=== PATIENT | female | born 1990 | race Caucasian/White ===

== ENCOUNTER 2017-08-04 04:23 | Inpatient (IN) | payer OTHER, SELFPAY ==
[2017-08-04] VITALS (31 sets, daily range): BP systolic 82–122; BP diastolic 51–88; PULSE 72–110; RESP 14–20; TEMP 36.1–43; O2SAT 96–100; BMI 20.5
--- NOTE | 2017-08-04 04:41 | CT_ITS ---
CT abdomen pelvis wo con CLINICAL INDICATION: Abdominal pain, periumbilical pain ITS.REASON: ABDOMINAL PAIN ORDERING PHYSICIAN: Obi Doss MD PATIENT AGE: 27 years COMPARISON: None TECHNIQUE: Axial images obtained with sagittal and coronal reformats. PROCEDURE: Oral Contrast: None IV Contrast: None . FINDINGS: No acute finding in the lung bases. The liver, spleen, adrenal glands, and pancreas have an unremarkable unenhanced CT appearance. There is a nonobstructing 4 mm stone in the upper pole of the left kidney and a 2 mm stone in the lower pole left kidney. No hydronephrosis or ureteral calculi evident. There is mild amount of ascites. Mildly thickened small bowel loops are present and are nonspecific. There is some mild thickening of the large bowel as well. Fluid is present in the pelvis. There is a complex multiloculated appearing collection in the right lower abdomen extending into the pelvis measuring approximately 8.6 x 8.3 x 7.3 cm. This contains internal gas and fluid with mildly thickened septations and is suspicious for an abscess. Etiology of the abscess is uncertain. Could represent an appendiceal or diverticular abscess or even tubo-ovarian abscess. The appendix is not reliably identified. No acute bony anomalies. IMPRESSION: Complex fluid collection in the right lower quadrant containing gas extending in the pelvis suspicious for an abscess with associated ascites. Etiology of the abscess is uncertain. Appendiceal, diverticular, tubo-ovarian abscess or abscess from Crohn's disease is a consideration. There are scattered mildly thickened small bowel loops which are nonspecific. Recommend repeat exam with IV and appropriate oral contrast. There is generalized ascites as well with a moderate amount fluid in the cul-de-sac Scattered fluid-filled loops of small bowel are present some of which are mildly thickened some mildly thickened large bowel is well. Ileus/enteritis consideration. Nonobstructing left nephrolithiasis
[2017-08-04 05:05] LABS: Appearance,Urine CLEAR (Clear); Bilirubin,Urine Negative (Negative); Blood, Urine 3+ (Negative); Color,Urine YELLOW (Yellow); Glucose,Urine (UA) Negative (Negative); Ketones,Urine Negative (Negative); Leukocyte Esterase,Urine TRACE (Negative); Microscopic, Urine URINE MICROSCOPIC (MICROSCOPIC); Nitrate,Urine Negative (Negative); Protein,Urine Negative (Negative)
[2017-08-04 05:08] LABS: HCG Qualitative, Serum Negative (Negative)
[2017-08-04 05:09] LABS: Basophils % 0.1 % (0.1-2.0); Eosinophils % 0.1 % (0.1-12.0); Hematocrit 40.5 % (37.0-47.0); Hemoglobin 13.2 g/dL (12.2-16.2); Lymphocytes # 1.7 K/mm3 (0.7-4.5); Lymphocytes % 8.4 K/mm3 (10-50); Mean Corpuscular HGB Conc 32.7 g/dL (31.8-35.4); Mean Corpuscular Volume 91.7 fl (81-99); Mean Platelet Volume 7.6 fl (7.4-10.4); Monocytes # 0.3 K/mm3 (0.1-1.0); Monocytes % 1.6 % (1.7-9.3); Neutrophils # 18.4 K/mm3 (1.8-7.8); Neutrophils % 89.8 % (37.0-80.0); Platelet Count 712 K/mm3 (142-424); Red Blood Count 4.41 M/mm3 (4.20-5.40); Red Cell Distribution Width 11.6 % (11.5-17.5); White Blood Count 20.5 K/mm3 (4.8-10.8)
[2017-08-04 05:10] LABS: Alanine Aminotransferase 17 U/L (12-78); Albumin Level 2.6 gm/dL (3.4-5.0); Albumin/Globulin Ratio 0.5 (1.1-1.8); Alkaline Phosphatase 82 U/L (46-116); Amylase 44 U/L (25-125); Anion Gap 15.3 mEq/L (5-15); Aspartate Amino Transferase 18 U/L (15-37); Bilirubin,Total 0.3 mg/dL (0.2-1.0); Blood Urea Nitrogen 5 mg/dL (7-18); Calcium 8.7 mg/dL (8.5-10.1); Carbon Dioxide 24 mmol/L (21.0-32.0); Chloride 99 mmol/L (98-107); Creatinine Clearance Estimated 86 mL/min (0-300); Creatinine,Serum 0.83 mg/dL (0.55-1.02); Estimated Glomerular Filt Rate 81 ml/min (>60); GFR (African American) 98 ML/MIN (>60); Globulin 5.4 gm/dl (1.3-3.2); Glucose 165 mg/dL (74-106); Lipase 82 u/L (73-393); MANUAL DIFFERENTIAL MANUAL DIFFERENTIAL (MANUAL DIFF); Potassium 3.3 mmoL/L (3.5-5.1); Sodium 135 mmol/L (136-145)
[2017-08-04 05:17] LABS: Bacteria,Urine 1+ /lpf; Mucus,Urine 3+ /lpf
--- NOTE | 2017-08-04 05:43 | PC.NURSE ---
pt returned from CT
[2017-08-04 06:08] LABS: Anisocytosis 1+; Lymphocytes % 5 % (10-50); Monocytes % 2 % (2-9); Neutrophils % 93 % (42-76); Platelet Estimate Normal; Total Cells Counted 100
--- NOTE | 2017-08-04 06:28 | US_ITS ---
US transvaginal HISTORY: Pelvic pain, periumbilical pain, abnormal CT scan ITS.REASON: pelvic pain ORDERING PHYSICIAN: Rajiv Brewer MD PATIENT AGE: 27 years COMPARISON: None FINDINGS: Ureters measures 9.3 x 3.5 x 6 cm with a combined endometrial thickness 4 mm. There is an IUD present within the endometrium. No uterine mass apparent. There is a complex 10.6 x 8.6 cm mass in the right adnexal region with both solid and cystic component. A normal right ovary is not identified. Left ovary is 4.2 x 3.5 cm. There is free fluid in the pelvis have an heterogeneous echogenicity suggesting complex fluid. IMPRESSION: 1. Complex 10.6 x 8.6 cm right sided pelvic mass having both solid and complex cystic component. This is suspicious for an abscess. 2. Complex fluid in the cul-de-sac which could be related to hemorrhage and/or infected fluid.
--- NOTE | 2017-08-04 06:35 | HMH.EDUROGF ---
ED Disposition Clinical Impression: Tubo-ovarian abscess Disposition: Admitted As Inpatient Condition on Discharge: Serious Instructions: DI for Acute Abdomen - Critical Care Critical Care Time: No Attestation: On 08/04/17, the high probability of a clinically significant, sudden or life threatening deterioration of the following system(s) required my full and direct attention, intervention and personal management. The time I documented below is in addition to time spent performing reported procedures but includes the following listed in this critical care notation. Medical Decision Making - Medical Records Medical records reviewed: Yes: I reviewed the patient's medical records. Vital Signs: 08/04/17 04:31 Temperature 100.6 F H Temperature Source Oral Pulse Rate [Right Radial] 107 H Respiratory Rate 20 Blood Pressure [Right Arm] 109/69 Blood Pressure Mean [Right Arm] 82 Blood Pressure Source [Right Arm] Automatic Cuff 02 Sat by Pulse Oximetry 98 Oxygen Delivery Method Room Air - Lab Data Lab results reviewed: Yes: I reviewed the patient's lab results. Lab Results 08/04/17 04:40: WBC 20.5 H*, RBC 4.41, Hgb 13.2, Hct 40.5, MCV 91.7, MCH 30.0, MCHC 32.7, RDW 11.6, Plt Count 712 H, MPV 7.6, Neut % (Auto) 89.8 H, Lymph % (Auto) 8.4 L, [place] % (Auto) 1.6 L, Eos % (Auto) 0.1, Baso % (Auto) 0.1, Neut # (Auto) 18.4 H, Lymph # (Auto) 1.7, [place] # (Auto) 0.3, Eos # (Auto) 0.0, Baso # (Auto) 0.0, Total Counted 100, Neutrophils % (Manual) 93 H, Lymphocytes % (Manual) 5 L, Monocytes % (Manual) 2, Platelet Estimate Normal, Anisocytosis 1+ 08/04/17 04:40: Sodium 135 L, Potassium 3.3 L, Chloride 99, Carbon Dioxide 24, Anion Gap 15.3 H, BUN 5 L, Creatinine 0.83, Estimated Creat Clear 86, Estimated GFR 81, Est GFR ( Amer) 98, Glucose 165 H, Calcium 8.7, Total Bilirubin 0.3, AST 18, ALT 17, Alkaline Phosphatase 82, Total Protein 8.0, Albumin 2.6 L, Globulin 5.4 H, Albumin/Globulin Ratio 0.5 L, Amylase 44, Lipase 82 08/04/17 04:40: Serum HCG, Qual Negative 08/04/17 04:50: Urine Color Yellow, Urine Appearance Clear, Urine pH 7.0, Ur Specific [place] 1.010, Urine Protein Negative, Urine Glucose (UA) Negative, Urine Ketones Negative, Urine Blood 3+, Urine Nitrate Negative, Urine Bilirubin Negative, Urine Urobilinogen 2.0, Ur Leukocyte Esterase Trace, Urine RBC 10-20, Urine WBC 3-5, Ur Squamous Epith Cells 3-5, Urine Bacteria 1+, Urine Mucus 3+ Result diagrams: 08/04/17 04:40 08/04/17 04:40 Orders (Tests/Meds): ED MEDICATIONS Discontinued Medications Generic Name Dose Route Start Last Admin Trade Name Freq PRN Reason Stop Dose Admin Sodium Chloride 1,000 mls @ 999 mls/hr 08/04/17 05:00 08/04/17 04:54 Sod Chloride 0.9% 1000ml Bag IV 08/04/17 06:00 999 mls/hr .Q1H1M SUNSHINE Administration Ketorolac Tromethamine 30 mg 08/04/17 05:26 08/04/17 05:33 Toradol 30mg/Ml Vial IV 08/04/17 05:27 30 mg ONCE ONE Administration Morphine Sulfate 2 mg 08/04/17 06:31 08/04/17 06:34 Morphine 2mg/Ml Syringe IV 08/04/17 06:32 2 mg ONCE ONE Administration ORDERS Category Date Time Status CT abdomen pelvis wo con Stat Cat Scan 08/04/17 04:41 Taken US transvaginal Stat Exams 08/04/17 06:28 Ordered - CT Data CT Scan: Abdomen, Pelvis Time Received: 06:[address] Reviewed: Yes: I have viewed the radiologist's interpretation Preliminary Findings: Abnormal - US Data US Images: Pelvis ED US Reviewed: Yes: I have viewed radiologist's interpretation Findings Narrative: prob tuboovarian - Physician Consults Physician Consulted: johanne Reason -: Admission, Pt condition - Jd Inquiry Pt receiving controlled substance: No Female Urogenital HPI - General Chief complaint: Abdominal Pain Stated complaint: vaginal bleeding,feet and hands drawing Time Seen by Provider: 08/04/17 04:40 Mode of Arrival: Ambulatory Source of Information: Patient, Significant Other, Medical Record Limitations
--- NOTE | 2017-08-04 06:35 | PC.NURSE ---
CONSULTING WITH DR TURNER
--- NOTE | 2017-08-04 06:39 | ED_ITS ---
ED Disposition Clinical Impression: Tubo-ovarian abscess Disposition: Admitted As Inpatient Condition on Discharge: Serious Instructions: DI for Acute Abdomen - Critical Care Critical Care Time: No Attestation: On 08/04/17, the high probability of a clinically significant, sudden or life threatening deterioration of the following system(s) required my full and direct attention, intervention and personal management. The time I documented below is in addition to time spent performing reported procedures but includes the following listed in this critical care notation. Medical Decision Making - Medical Records Medical records reviewed: Yes: I reviewed the patient's medical records. Vital Signs: 08/04/17 04:31 Temperature 100.6 F H Temperature Source Oral Pulse Rate [Right Radial] 107 H Respiratory Rate 20 Blood Pressure [Right Arm] 109/69 Blood Pressure Mean [Right Arm] 82 Blood Pressure Source [Right Arm] Automatic Cuff 02 Sat by Pulse Oximetry 98 Oxygen Delivery Method Room Air - Lab Data Lab results reviewed: Yes: I reviewed the patient's lab results. Lab Results 08/04/17 04:40: WBC 20.5 H*, RBC 4.41, Hgb 13.2, Hct 40.5, MCV 91.7, MCH 30.0, MCHC 32.7, RDW 11.6, Plt Count 712 H, MPV 7.6, Neut % (Auto) 89.8 H, Lymph % ( Auto) 8.4 L, [place] % (Auto) 1.6 L, Eos % (Auto) 0.1, Baso % (Auto) 0.1, Neut # ( Auto) 18.4 H, Lymph # (Auto) 1.7, [place] # (Auto) 0.3, Eos # (Auto) 0.0, Baso # ( Auto) 0.0, Total Counted 100, Neutrophils % (Manual) 93 H, Lymphocytes % (Manual ) 5 L, Monocytes % (Manual) 2, Platelet Estimate Normal, Anisocytosis 1+ 08/04/17 04:40: Sodium 135 L, Potassium 3.3 L, Chloride 99, Carbon Dioxide 24, Anion Gap 15.3 H, BUN 5 L, Creatinine 0.83, Estimated Creat Clear 86, Estimated GFR 81, Est GFR ( Amer) 98, Glucose 165 H, Calcium 8.7, Total Bilirubin 0.3, AST 18, ALT 17, Alkaline Phosphatase 82, Total Protein 8.0, Albumin 2.6 L, Globulin 5.4 H, Albumin/Globulin Ratio 0.5 L, Amylase 44, Lipase 82 08/04/17 04:40: Serum HCG, Qual Negative 08/04/17 04:50: Urine Color Yellow, Urine Appearance Clear, Urine pH 7.0, Ur Specific [place] 1.010, Urine Protein Negative, Urine Glucose (UA) Negative, Urine Ketones Negative, Urine Blood 3+, Urine Nitrate Negative, Urine Bilirubin Negative, Urine Urobilinogen 2.0, Ur Leukocyte Esterase Trace, Urine RBC 10-20, Urine WBC 3-5, Ur Squamous Epith Cells 3-5, Urine Bacteria 1+, Urine Mucus 3+ Result diagrams: 08/04/17 04:40 08/04/17 04:40 Orders (Tests/Meds): ED MEDICATIONS Discontinued Medications Generic Name Dose Route Start Last Admin Trade Name Freq PRN Reason Stop Dose Admin Sodium Chloride 1,000 mls @ 999 mls/hr 08/04/17 05:00 08/04/17 04:54 Sod Chloride 0.9% 1000ml Bag IV 08/04/17 06:00 999 mls/hr .Q1H1M SUNSHINE Administration Ketorolac Tromethamine 30 mg 08/04/17 05:26 08/04/17 05:33 Toradol 30mg/Ml Vial IV 08/04/17 05:27 30 mg ONCE ONE Administration Morphine Sulfate 2 mg 08/04/17 06:31 08/04/17 06:34 Morphine 2mg/Ml Syringe IV 08/04/17 06:32 2 mg ONCE ONE Administration ORDERS Category Date Time Status CT abdomen pelvis wo con Stat Cat Scan 08/04/17 04:41 Taken US transvaginal Stat Exams 08/04/17 06:28 Ordered - CT Data CT Scan: Abdomen, Pelvis Time Received: 06:[address] Reviewed: Yes: I have viewed the radiologist's interpreta
--- NOTE | 2017-08-04 09:13 | HMH.ANESCL ---
[facility] Anesthesia Checklist - Patient Identification Patient Identification: Arm Band, Verbal (Name & ) - Structural Data Admitted From: Emergency Dept Planned Operative Procedure/s: dx lap - Chart Verification Results Verified: CBC, BMP - Additional verifications Patient : No Anesthesia Reactions: No Hx Blood Transfusions: No Blood Transfusion Reaction: No Cephalosporin Allergy: No - Cardiovascular Assessment Heart Sounds: S1 & S2 Pulse Strength: Strong Pulse Rhythm: Regular Peripheral Edema: No - Airway Assessment C-Spine Mobility Assessed: Yes TMJ Mobility Assessed: Yes Dentition: Good Dentition - Neurological Assessment Level of Consciousness: Awake, Alert, Appropriate Hx Seizures: No Numbness or tingling in extremities: No - Anesthesia Plan Anesthesia Risk discussed: Yes ASA Class: I Anesthesia Type: General [facility] Anesthesia HX I have reviewed the patient's past medical history: Yes Other Surgeries: Yes: No Previous Surgery
--- NOTE | 2017-08-04 10:02 | PC.NURSE ---
PT. STATES THAT SHE IS ALSO HAVING VAGINAL BLEEDING THAT IS BLACK. STATES THAT THIS HAS BEEN GOING ON SINCE 07/09/17
--- NOTE | 2017-08-04 10:32 | PC.NURSE ---
LATE ENTRY 0845- TALKED WITH JOHNNY BURRIS ABOUT PATIENT RATING PAIN AN 02/19 AND NO ORDERS FOR PAIN MEDICATIONS. ORDERS RECEIVED - DILAUDID 1MG IV EVERY 2 HOURS FOR MODERATE TO SEVERE PAIN, AND LACTATED RINGERS IV @100ML/HR FOR HYDRATION. REPEATED/VERIFIED. \ LATE ENTRY 1020- CALLED JOHNNY BURRIS AND INFORMED HIM OF PATIENTS TEMPERATURE OF 100.9. ORDERS RECEIVED- TORADOL 30MG IV EVERY 6 HOURS. REPEATED/VERIFIED.
--- NOTE | 2017-08-04 11:11 | HMH.PHACONS ---
- Pharmacy Consult Date: 08/04/17 Time: 11:11 Referring provider: DR. TURNER Reason for Consult:: GENTAMICIN DOSING Allergies and ADEs:: Allergies Allergy/AdvReac Type Severity Reaction Status Date / Time Penicillins Allergy Verified 08/04/17 04:38 Home Medications:: Home Medications Medication Instructions Recorded Confirmed Type No Known Home Medications [No 08/04/17 08/04/17 History Known Home Medications] Height: 1.63 m Weight: 54.431 kg Laboratory Results:: CREATININE=0.83 Medical History: Denies:: Cancer, Diabetes Mellitus Type 1, Diabetes Mellitus Type 2, MRSA, Seizures Assessment and Plan (1) Tubo-ovarian abscess Current visit: Yes Status: Acute Category: Medical Code(s): N70.93 - Salpingitis and oophoritis, unspecified - Assessment and plan all Dx Assessment and Plan for all problems:: BASED ON PATIENT FACTORS, RECOMMEND GENTAMICIN 240 MG IV Q24H. WILL OBTAIN GENTAMICIN LEVELS AT 4 AND 12-HOURS POST-INFUSION. PHARMACY WILL FOLLOW DAILY AND ADJUST APPROPRIATE.
--- NOTE | 2017-08-04 12:48 | PC.NURSE ---
LATE ENTRY 8145- CALLED JOHNNY BURRIS TO NOTIFY HIM OF PATIENTS TEMP SPIKING TO 101.5 AT 11:00. RECHECKED AT 11:30 TEMP DOWN TO 99.3 NO NEW ORDERS WERE GIVEN. WILL CONTINUE TO MONITOR. LATE ENTRY- 12:30 TOOK PATIENT DOWN FOR PROCEDURE VIA WHEELCHAIR. ACCOMPANIED BY . REPORT GIVEN TO Brandon ZAIDI.
--- NOTE | 2017-08-04 15:19 | HMH.OPNOTE ---
Date of procedure: 08/04/17 Pre-op Diagnosis:: Pelvic abscess Post-op diagnosis:: other (Pelvic abscess, right ovarian abscess, possible appendicitis) Procedure performed:: Laparoscopic right drainage of ovarian abscess, laparoscopic appendectomy Surgeon:: Rajiv Brewer MD DEFENSIVE DRIVING INSTRUCTOR:: Alcon Senior Anesthesia: GETEric Estimated blood loss (mL): 50 Clinical Note:: She is a 27-year-old 4 para 3 lady who has had a week long history of lower abdominal pain. She has a Mirena IUD in place and no new partners. She was seen in the ER this morning with a four-day history of anorexia and pelvic pain. She also had a fever. Her white cell was 20,000. Ultrasound showed pus in the pelvis as well as a possible abscess in the right side as a result of that she was offered laparoscopic drainage of her abscess. Operative findings:: When I looked in her pelvis it was completely full of yellow-green pus. On further inspection it was noted that the appendix was adherent to the back of the right ovary posteriorly close to the pelvic sidewall. The distal end of the appendix was quite firm and indurated. The more proximal end of the appendix was completely normal. Was not clear whether this was an appendiceal rupture that it sealed off and caused an ovarian abscess on the right side or possibly a primary ovarian abscess with an adhesion of the distal appendix to the right ovary. In any event we elected to remove her appendix as well as drain this abscess in the right ovary. The abscess in the right ovary was approximately 8 cm to 10 cm in size. Operative note:: She was taken to the operating room where general anesthesia was found to be adequate. She was prepped and draped in the normal sterile fashion in the semilithotomy position. The catheter was in the bladder. A weighted speculum was placed in the vagina and the anterior lip of the cervix was grasped with a tenaculum. Her Mirena strings were present and I was able to easily remove these with a sponge forcep. I then changed gloves and injected 10 cc of 0.5% ropivacaine around the umbilicus. I made a small incision within the umbilicus and inserted a Veress needle into the abdominal cavity. The cavity was then insufflated with carbon dioxide gas to a pressure of 20 mmHg. I then inserted a 5 mm trocar under direct vision I injected through and through at the pubic hairline, made a small incision here and inserted an 11 mm trocar under direct vision. I then identified the inferior epigastric arteries, went lateral to these and injected through and through. I inserted a 5 mm trocar here under direct vision. I then inspected the pelvis and there was copious pus in the pelvis. I drained this and then sent this for culture. I then rinsed the pelvis well with copious fluid. At this time it was noted that the appendix was adherent to the right ovary on its lateral side and there was a large fluid-filled cyst on the right ovary. Using blunt dissection and countertraction I was able to easily remove the distal end of the appendix from the right ovary. At this time was noted that there was some drainage of thick pus from the right ovary. I then grasped the more medial side of the right ovary and using harmonic scalpel opened up into the cyst. It was filled with thick yellow pus. This was rinsed well and drained. I then removed part of the cyst wall. This was sent to pathology. I then grasped the distal end of the appendix. Using harmonic scalpel I cut along the mesoappendix. I then changed to a 12 mm trocar and placed an Endo MARGOT stapler through this trocar. I clamped across the base of the appendix and then fired the stapler. The appendix was then placed in an Endo Catch bag and removed through the 12 mm port. I then further inspected the base of the appendix and was found to be completely hemostatic and completely sealed. I then placed the patient in reverse Trendelenburg and rinsed the upper abdomen
--- NOTE | 2017-08-04 15:23 | P.OP_ITS ---
Date of procedure: 08/04/17 Pre-op Diagnosis:: Pelvic abscess Post-op diagnosis:: other (Pelvic abscess, right ovarian abscess, possible appendicitis) Procedure performed:: Laparoscopic right drainage of ovarian abscess, laparoscopic appendectomy Surgeon:: Rajiv Brewer MD WALLPAPER HANGER:: Alcon Senior Anesthesia: GETEric Estimated blood loss (mL): 50 Clinical Note:: She is a 27-year-old 4 para 3 lady who has had a week long history of lower abdominal pain. She has a Mirena IUD in place and no new partners. She was seen in the ER this morning with a four-day history of anorexia and pelvic pain. She also had a fever. Her white cell was 20,000. Ultrasound showed pus in the pelvis as well as a possible abscess in the right side as a result of that she was offered laparoscopic drainage of her abscess. Operative findings:: When I looked in her pelvis it was completely full of yellow-green pus. On further inspection it was noted that the appendix was adherent to the back of the right ovary posteriorly close to the pelvic sidewall. The distal end of the appendix was quite firm and indurated. The more proximal end of the appendix was completely normal. Was not clear whether this was an appendiceal rupture that it sealed off and caused an ovarian abscess on the right side or possibly a primary ovarian abscess with an adhesion of the distal appendix to the right ovary. In any event we elected to remove her appendix as well as drain this abscess in the right ovary. The abscess in the right ovary was approximately 8 cm to 10 cm in size. Operative note:: She was taken to the operating room where general anesthesia was found to be adequate. She was prepped and draped in the normal sterile fashion in the semilithotomy position. The catheter was in the bladder. A weighted speculum was placed in the vagina and the anterior lip of the cervix was grasped with a tenaculum. Her Mirena strings were present and I was able to easily remove these with a sponge forcep. I then changed gloves and injected 10 cc of 0.5% ropivacaine around the umbilicus. I made a small incision within the umbilicus and inserted a Veress needle into the abdominal cavity. The cavity was then insufflated with carbon dioxide gas to a pressure of 20 mmHg. I then inserted a 5 mm trocar under direct vision I injected through and through at the pubic hairline, made a small incision here and inserted an 11 mm trocar under direct vision. I then identified the inferior epigastric arteries, went lateral to these and injected through and through. I inserted a 5 mm trocar here under direct vision. I then inspected the pelvis and there was copious pus in the pelvis. I drained this and then sent this for culture. I then rinsed the pelvis well with copious fluid. At this time it was noted that the appendix was adherent to the right ovary on its lateral side and there was a large fluid-filled cyst on the right ovary. Using blunt dissection and countertraction I was able to easily remove the distal end of the appendix from the right ovary. At this time was noted that there was some drainage of thick pus from the right ovary. I then grasped the more medial side of the right ovary and using harmonic scalpel opened up into the cyst. It was filled with thick yellow pus. This was rinsed well and drained. I then removed part of the cyst wall. This was sent to pathology. I then grasped the distal end of the appendix. Using harmonic scalpel I cut along the mesoappendix. I then changed to a 12 mm trocar and placed an Endo MARGOT stapler through this trocar. I clamped across the base of the appendix and then fired the stapler. The
--- NOTE | 2017-08-04 15:33 | P.PN_ITS ---
[facility] Anesthesia Record Part I Intake, IV Amount: 1,900 Estimated blood loss (mL): 50 Urine output (mL): 100 Blood Pressure: 116/70 SaO2: 99 Pulse Rate: 100 Respiratory Rate: 16 Temperature: 97.5 F Patient is:: Drowsy, Stable Stable to PACU at:: 15:30
--- NOTE | 2017-08-04 15:33 | HMH.ANESII ---
[facility] Anesthesia Record Part II Discharge Time: 16:00 Destination: 2nd floor PACU nurse assessment reviewed?: Yes Patient Condition:: Good Anesthesia Complications:: None
[2017-08-04 16:07] LABS: Gentamicin,Random 2.8 ug/mL (4.0-10.0)
--- NOTE | 2017-08-04 16:27 | PC.NURSE ---
1530-REPORT RECIEVED FROM VALERIE FORRESTER. KEMAL DRAIN TO MIDLINE, DISTAL ABDOMINAL INCISION. SMALL AMT OF CLOUDY, BLOOD TINGED, THIN DRAINAGE NOTED TO KEMAL DRAIN BULB. WILL CONTINUE TO MONITOR.
--- NOTE | 2017-08-04 16:53 | PC.NURSE ---
1540-PT REPORTS PAIN TO ABDOMEN, RATES 6/10. PT MEDICATED PER VALERIE FORRESTER W/FENTANYL IV ( SEE ANESTHESIA RECORD). PT EATING ICE CHIPS W/OUT DIFFICULTY. MODERATE AMT OF INCREASED DRAINAGE TO KEMAL DRAIN. COTENTS NOTED TO BE THIN, CLOUDY, AND BLOOD TINGED IN COLOR. WILL CONTINUE TO MONITOR.
--- NOTE | 2017-08-04 16:59 | PC.NURSE ---
1550-PT DENIES PAIN OR NAUSEA AT THIS TIME. SMALL AMT OF INCREASED THIN, CLOUDY, BLOOD TINGED DRAINAGE NOTED TO KEMAL DRAIN, WILL CONTINUE TO MONITOR. PT CONTINUES TO EAT ICE CHIPS W/OUT DIFFICULTY.
--- NOTE | 2017-08-04 17:03 | PC.NURSE ---
1555-PT REPORTS ABD PAIN, RATES /10. MEDICATED PER MAR W/MOPRHINE 2MG IV. VSS 1600-PT CONTINUES TO EAT ICE CHIPS W/OUT DIFFICULTY. SMALL AMT OF INCREASED THIN, CLOUDY, BLOOD TINGED DRAINAGE NOTED TO KEMAL DRAIN-EMPTIED 125ML'S AT THIS TIME. KEMAL DRAIN STRIPPED PRIOR TO EMPTYING. DETAILED REPORT CALLED TO RUKHSANA MELCHOR.
--- NOTE | 2017-08-04 17:09 | SUR.PHASEI ---
1603-PT REPORTS ABD PAIN EASING. PT TRANSPORTED TO OB DEPT RM 279 VIA STRETCHER PER MYSELF AND FUADRN W/BED RAILS UP AND LEFT IN CARE OF RUKHSANA MELCHOR W/BED LOCKED IN LOWEST POSITION. FAMILY AT BEDSIDE. PT ASSISTED INTO HOSPITAL BED UPON ARRIVAL TO FLOOR. VSS. PT STABLE.
--- NOTE | 2017-08-04 17:24 | PC.NURSE ---
LATE ENTRY- [address] ALBA. INFORMED HIM OF PTS. TWO ORDERS FOR DILAUDID. STATED TO D/C THE DILAUDID 1MG EVERY 2 HOURS. ALSO INFORMED HIM OF PTS. BP IN 80'S/50'S AND LOW URINE OUTPUT. ORDERS RECEIVED- 20MG IV LASIX ONCE AND 1 L OF NS BOLUS. REPEATED AND VERIFIED. WILL CONTINUE TO MONITOR .
--- NOTE | 2017-08-04 18:34 | PC.NURSE ---
LATE ENTRY 1824- TALKED WITH DR. TURNER- INFORMED HIM OF PTS. BP STILL IN 80'S/50'S AND THAT PATIENT WAS EXPERIENCING PAIN. INFORMED HIM THAT I DID NOT FEEL COMFORTABLE ABOUT GIVING HER DILAUDID. ALSO INFORMED HIM OF URINE OUTPUT WHICH HAS BEEN 250ML TOTAL SINCE SHE RETURNED FROM SURGERY. INFORMED HIM ABOUT DRAINAGE OUT OF KEMAL DRAIN. I EMPTIED 30ML OF PUS/SEROSANG DRAINAGE. ORDERED TORADOL 30MG IV ONCE NOW AND ALSO A STAT CBC. STATED HE WILL ROUND SHORTLY. ORDERS REPEATED/VERIFIED. WILL CONTINUE TO MONITOR.
--- NOTE | 2017-08-04 18:43 | PC.NURSE ---
LATE ENTRY 1749- DR. TURNER CALLED AND CHECKED ON PT. INFORMED HIM OF PTS. BLOOD PRESSURE AND ALSO PATIENT URINE OUTPUT. STATED TO CANCEL THE PREVIOUS ORDER FOR LASIX 20MG AND TO GIVE HER NS AT 500ML/HR X2. THEN CONTINUE TO PUSH FLUIDS. WILL CONTINUE TO MONITOR.
[2017-08-04 18:51] LABS: Eosinophils # 0.1 K/mm3 (0.0-0.4); Eosinophils % 0.5 % (0.1-12.0); Hematocrit 30.9 % (37.0-47.0); Lymphocytes # 0.4 K/mm3 (0.7-4.5); Lymphocytes % 4.2 K/mm3 (10-50); Mean Corpuscular HGB Conc 32.2 g/dL (31.8-35.4); Mean Corpuscular Hemoglobin 29.8 pg (27.0-31.2); Mean Corpuscular Volume 92.5 fl (81-99); Monocytes # 0.1 K/mm3 (0.1-1.0); Monocytes % 1.4 % (1.7-9.3); Neutrophils # 9.5 K/mm3 (1.8-7.8); Neutrophils % 93.8 % (37.0-80.0); Platelet Count 372 K/mm3 (142-424); Red Blood Count 3.34 M/mm3 (4.20-5.40); Red Cell Distribution Width 11.7 % (11.5-17.5); White Blood Count 10.1 K/mm3 (4.8-10.8)
[2017-08-04 18:54] LABS: Microscopic,Cath URINE MICROSCOPIC (MICROSCOPIC)
[2017-08-04 18:56] LABS: MANUAL DIFFERENTIAL MANUAL DIFFERENTIAL (MANUAL DIFF)
--- NOTE | 2017-08-04 19:05 | HMH.ACPN2 ---
Internal Medicine - PN: Subj *Date: 08/04/17 *Time: 19:05 Interval history: She has had some decreased blood pressure in the 80s over 50s. She looks well. She has minimal drainage from her KEMAL drain. It is serosanguineous. She is starting to put out a little more urine but it still continues to be dark yellow possibly as result of dehydration or the IV antibiotic she is taking. Her heart rate is stable. Blood pressure now is 92/56. Heart rate 80. Her pain is reasonably well controlled. She just received Toradol. Her blood counts are normal. Her hemoglobin is pending her hematocrit is 30.6. White blood cell count has gone down from 20-10. She is receiving a bolus of fluid at 500 cc an hour for the next couple of hours and then we will give her 125 cc an hour after that. We will monitor her urine output. We will switch to oral pain medicine from the IV pain medicine in case this is causing her blood pressure to drop. At this point in time I believe that she is stable she is afebrile and not septic appearing. She has another CBC and Chem-7 ordered for the morning. We will continue with her Coley catheter overnight and monitor her urine output. Exam Vital signs and Labs for Last 24 Hours: Temp Pulse Resp BP Pulse Ox 97.3 F L 87 16 122/88 99 08/04/17 17:40 08/04/17 17:40 08/04/17 17:40 08/04/17 17:40 08/04/17 17:40 Laboratory Results - last 24 hr 08/04/17 15:40: Random Gentamicin 2.8 L 08/04/17 18:40: WBC 10.1 D, RBC 3.34 L, Hct 30.9 L, MCV 92.5, MCH 29.8, MCHC 32.2, RDW 11.7, Plt Count 372 D, MPV 8.0, Neut % (Auto) 93.8 H, Lymph % (Auto) 4.2 L, [place] % (Auto) 1.4 L, Eos % (Auto) 0.5, Baso % (Auto) 0.0 L, Neut # (Auto) 9.5 H, Lymph # (Auto) 0.4 L, [place] # (Auto) 0.1, Eos # (Auto) 0.1, Baso # (Auto) 0.0 I & O for Last 24 hours: Intake & Output 08/02/17 08/03/17 08/04/17 08/05/17 11:59 11:59 11:59 11:59 Intake Total 1999 Output Total 250 / 250 Balance 1750 / 1750 Weight 120 lb - Constitutional no acute distress Assessment and Plan (1) Tubo-ovarian abscess Current visit: Yes Status: Acute Category: Medical Code(s): N70.93 - Salpingitis and oophoritis, unspecified - Assessment and plan all Dx Assessment and Plan for all problems:: We will continue with IV fluids. We will get another CBC in the morning. We will monitor her urine output. We will continue to monitor her vital signs. We will start oral pain medicine.
[2017-08-04 19:11] LABS: Appearance,Urine/Cath CLEAR (Clear); Blood, Urine/Cath Negative (Negative); Color,Urine/Cath YELLOW (Yellow); Glucose,Urine/Cath (UA) Negative (Negative); Ketones,Urine/Cath Negative (Negative); Leukocyte Esterase,Cath Negative (Negative); Nitrate,Cath Negative (Negative); Protein,Urine/Cath 1+ (Negative); Specific Gravity, Urine/Cath >= 1.030 (1.005-1.030)
[2017-08-04 19:19] LABS: Lymphocytes % 4 % (10-50); Monocytes % 11 % (2-9); Neutrophils % 76 % (42-76); Total Cells Counted 100
[2017-08-04 19:20] LABS: Platelet Estimate Normal; RBC Morphology Normal
--- NOTE | 2017-08-04 19:20 | PC.NURSE ---
LATE ENTRY- 1899 MD AT BEDSIDE INFORMED HIM OF PATIENTS BLOOD PRESSURE AND URINE OUTPUT. ALSO ABOUT PATIENTS PAIN. MD STATED HE WOULD ORDER PO DILAUDID AND SEE HOW SHE TOLERATED THIS. MD ENTERED ORDERS. REPORT GIVEN TO SAMEERA
--- NOTE | 2017-08-04 19:30 | PC.NURSE ---
2nd NS bolus of 500ml IV started at this time.
[2017-08-04 19:31] LABS: Bilirubin,Cath 1+ (Negative)
[2017-08-04 19:42] LABS: Bacteria,Urine/Cath 3+ /lpf; Mucus,Urine/Cath 3+ /lpf; RBC,Urine/Cath Occasional # /hpf (0-3)
--- NOTE | 2017-08-04 20:30 | PC.NURSE ---
2nd NS bolus complete... New bag of NS hung at this time.
--- NOTE | 2017-08-04 22:15 | PC.NURSE ---
Pt requested pain medication. Informed this nurse that she did not want the Dilaudid 2mg PO, instead she wanted the IV Dilaudid 2mg... I informed pt of wanting her to switch to the oral version of pain medication and reasons why. Pt verbalized understanding but still repeatedly stated that she did not want the PO form that It makes my head feel swimmy, it must be bc it lasts longer . Pt refused oral and insisted that I notify Dr. Brewer that she wanted the IV form. Dilaudid 2mg IV p3hr PRN pain still active on SEP, so pt given 2mg IV.
--- NOTE | 2017-08-04 23:50 | PC.NURSE ---
Pt rang call espana requesting that more pain medication be given. Informed pt that she cannot receive any additional pain medication until 0100, that it is scheduled q3hrs. Pt can barely keep eyes open from drowsiness while speaking stating that she thought her pain medication was q2hrs. Pt was educated on the dosing of her meds (PACU vs UNIT and different dosages ordered). Pt verbalized understanding, but not convinced that pt fully understood r/t effects of pain meds previously received.
[2017-08-05 00:27] LABS: Gentamicin,Random 0.3 ug/mL (4.0-10.0)
--- NOTE | 2017-08-05 00:30 | PC.NURSE ---
PT'S AT [employer] AT SAME TIME CHARLOTTE BRANHAM. PT'S OVERHEARD TELLING ANOTHER VISITOR THAT PT (HIS ) IS IN THE ROOM TALKING NON-SENSE AND AND OUT OF HER HEAD R/T THE NARCOTIC PAIN MEDICATION. THIS NURSE CHECKED ON PT'S CONDITION / STATUS UPON HEARING THIS. PT'S V/S ARE NORMAL / STABLE (HR 77, O2 99% RA, RESP 18), EXCEPT B/P WHICH HAS BEEN HYPOTENSIVE ENTIRE TIME. PT ALERT AND ORIENTED X3, BUT VERY DROWSY.
[2017-08-05 00:58] LABS: Hemoglobin 9.9 g/dL (12.2-16.2)
--- NOTE | 2017-08-05 04:03 | PC.NURSE ---
Pt has remained on bedrest throughout the night. Coley cath remains anchored to bs drain with clear, dark yellow urine noted in drainage bag.. Order to remove f/c after 24hrs which will be around 1400 today. Has had 600ml clear, dark yellow urine this shift. Has (+) BS x 4 quads - hypoactive. Tolerating POs well. Has requested pain medication approximately q3hrs as time permits, no non-verbal s/s of pain noted except when palpating abdomen, which was grimacing.. Pt has remained awake all this shift, talking to and watching tv. although very drowsy from narcotics.. Hypotensive, but all other vitals are wnl. Pallor in color. 3 lap sites to abdomen, with surgical dressing, right and left sides CDI, bottom center dressing saturated with old blood drainage. Abdomen soft to palpate, non-distended, KEMAL drain intact with 70mls purulent light pink drainage emptied this shift. Initial H/H 13.2/40.5, post surgery H/H @ 1840 9.9/30.9. Will have CBC and BMP drawn this a.m. IV NS continues infusing at 125/hr w/o difficulty in left A/C.
--- NOTE | 2017-08-05 06:12 | PC.NURSE ---
WAS INFORMED BY ORE SAMPLER THAT PT RANG OUT STATING THAT SHE NEEDED TO USE THE RESTROOM TO HAVE A BM.. THIS NURSE BUSY AT THE TIME GETTING AN INDUCTION OF LABOR PT ADMITTED AND INSTRUCTED ORE SAMPLER TO ALLOW PT TO USE A BEDPAN OR TO ASSIST HER TO THE BATHROOM TO USE THE TOILET. PT IMMEDIATELY STARTS CRYING STATING I DON'T HAVE NO OPTIONS , CHARLOTTE BRANHAM INFORMED PT OF HER OPTIONS AGAIN TO WHICH PT REPLIED, I CANT POOP WITH A CATHETER IN. I CANT WIPE PT THEN EDUCATED BY ORE SAMPLER OF HOW IT CAN INDEED BE DONE.. PT'S COMMENTS THAT HE DOESN'T KNOW WHAT IS WRONG WITH THE PT STATING SHE'S NEVER LIKE THIS, IT MUST BE THE MEDICINE SHE HAS BEEN TAKING PT WAS INFORMED THAT HER CATHETER ORDER IS TO NOT BE REMOVED UNTIL 24HRS AFTER SURGERY WHICH WOULD BE AROUND 1400 TODAY AND THAT STAFF WOULD NOTIFY DR. TURNER OF PT WANTING CATHETER D/C'D ... PT THEN STATES WELL I'LL JUST HAVE TO TELL DR TURNER HOW UNCOMFORTABLE I HAVE BEEN. TO WHICH STAFF VERBALIZED UNDERSTANDING.
[2017-08-05 07:00] LABS: Basophils % 0.1 % (0.1-2.0); Eosinophils % 0.1 % (0.1-12.0); Hematocrit 33.3 % (37.0-47.0); Hemoglobin 10.3 g/dL (12.2-16.2); Lymphocytes # 0.7 K/mm3 (0.7-4.5); Lymphocytes % 4.3 K/mm3 (10-50); Mean Corpuscular Hemoglobin 29.4 pg (27.0-31.2); Mean Corpuscular Volume 94.7 fl (81-99); Mean Platelet Volume 7.8 fl (7.4-10.4); Monocytes # 0.3 K/mm3 (0.1-1.0); Monocytes % 1.7 % (1.7-9.3); Neutrophils # 15.7 K/mm3 (1.8-7.8); Neutrophils % 93.8 % (37.0-80.0); Platelet Count 420 K/mm3 (142-424); Red Blood Count 3.51 M/mm3 (4.20-5.40); Red Cell Distribution Width 11.8 % (11.5-17.5); White Blood Count 16.7 K/mm3 (4.8-10.8)
[2017-08-05 07:02] LABS: Blood Urea Nitrogen 6 mg/dL (7-18); Carbon Dioxide 26 mmol/L (21.0-32.0); Chloride 105 mmol/L (98-107); Creatinine Clearance Estimated 132 mL/min (0-300); Creatinine,Serum 0.54 mg/dL (0.55-1.02); Estimated Glomerular Filt Rate 133 ml/min (>60); GFR (African American) 162 ML/MIN (>60); Glucose 116 mg/dL (74-106); MANUAL DIFFERENTIAL MANUAL DIFFERENTIAL (MANUAL DIFF); Sodium 139 mmol/L (136-145)
--- NOTE | 2017-08-05 07:21 | PC.NURSE ---
REPORT GIVEN TO DAYSHIFT RNs
[2017-08-05 08:00] VITALS: PULSE 88
[2017-08-05 08:23] VITALS: BP 89/54; PULSE 88; RESP 15; TEMP 36.4; O2SAT 98
[2017-08-05 08:35] LABS: Lymphocytes % 5 % (10-50); Monocytes % 2 % (2-9); Neutrophils % 90 % (42-76); Total Cells Counted 100
[2017-08-05 08:37] LABS: Platelet Estimate Normal
--- NOTE | 2017-08-05 09:08 | HMH.ACPN2 ---
Internal Medicine - PN: Subj *Date: 08/05/17 *Time: 09:08 Interval history: She is doing well this morning. Her hemoglobin is stable. Her electrolytes are normal. Her pain is reasonably well controlled. She continues to drain from her KEMAL drain it the fluid is serosanguineous. She is eating and drinking and ambulating. She denies any shortness of breath, chest pain or calf tenderness. Her belly is soft. Her heart sounds are normal her chest is clear and her bowel sounds are normal. She has had her catheter removed and she is voiding well. Exam Vital signs and Labs for Last 24 Hours: Temp Pulse Resp BP Pulse Ox 97.6 F 88 15 89/54 98 08/05/17 08:23 08/05/17 08:23 08/05/17 08:23 08/05/17 08:23 08/05/17 08:23 Laboratory Results - last 24 hr 08/04/17 13:55: Urine Color Yellow, Urine Appearance Clear, Urine pH 6.0, Ur Specific [place] >= 1.030, Urine Protein 1+, Urine Glucose (UA) Negative, Urine Ketones Negative, Urine Blood Negative, Urine Nitrate Negative, Urine Bilirubin 1+ A, Urine Urobilinogen 2.0, Ur Leukocyte Esterase Negative, Urine RBC Occasional, Urine WBC 3-5, Ur Squamous Epith Cells 3-5, Urine Bacteria 3+ A, Hyaline Casts 5-10 08/04/17 15:40: Random Gentamicin 2.8 L 08/04/17 18:40: WBC 10.1 D, RBC 3.34 L, Hgb 9.9 L D, Hct 30.9 L, MCV 92.5, MCH 29.8, MCHC 32.2, RDW 11.7, Plt Count 372 D, MPV 8.0, Neut % (Auto) 93.8 H, Lymph % (Auto) 4.2 L, [place] % (Auto) 1.4 L, Eos % (Auto) 0.5, Baso % (Auto) 0.0 L, Neut # (Auto) 9.5 H, Lymph # (Auto) 0.4 L, [place] # (Auto) 0.1, Eos # (Auto) 0.1, Baso # (Auto) 0.0, Total Counted 100, Neutrophils % (Manual) 76, Band Neutrophils % 7.0, Lymphocytes % (Manual) 4 L, Monocytes % (Manual) 11 H, Metamyelocytes % 2.0 H, Platelet Estimate Normal, RBC Morphology Normal 08/04/17 23:25: Random Gentamicin 0.3 L 08/05/17 06:44: WBC 16.7 H D, RBC 3.51 L, Hgb 10.3 L, Hct 33.3 L, MCV 94.7, MCH 29.4, MCHC 31.0 L, RDW 11.8, Plt Count 420, MPV 7.8, Neut % (Auto) 93.8 H, Lymph % (Auto) 4.3 L, [place] % (Auto) 1.7, Eos % (Auto) 0.1, Baso % (Auto) 0.1, Neut # (Auto) 15.7 H, Lymph # (Auto) 0.7, [place] # (Auto) 0.3, Eos # (Auto) 0.0, Baso # (Auto) 0.0, Total Counted 100, Neutrophils % (Manual) 90 H, Band Neutrophils % 3.0, Lymphocytes % (Manual) 5 L, Monocytes % (Manual) 2, Platelet Estimate Normal 08/05/17 06:44: Sodium 139, Potassium 4.0 D, Chloride 105, Carbon Dioxide 26, Anion Gap 12.0, BUN 6 L, Creatinine 0.54 L D, Estimated Creat Clear 132, Estimated GFR 133, Est GFR ( Amer) 162 D, Glucose 116 H I & O for Last 24 hours: Intake & Output 08/02/17 08/03/17 08/04/17 08/05/17 11:59 11:59 11:59 11:59 Intake Total 7356 / 7356 Output Total 920 / 920 Balance 6436 / 6436 Weight 120 lb Microbiology Reports for the Last 24 Hours: Microbiology 08/04/17 14:10 Appendix Gram Stain - Final - Constitutional no acute distress - *Routine Cardiovascular Exam Present: Normal S1, Normal S2 - *Routine Abdominal Exam Present: soft, normoactive bowel sounds Comments: Her incisions are clean and dry. - *Routine Skin Exam Present: warm Comments: Good color Assessment and Plan (1) Tubo-ovarian abscess Current visit: Yes Status: Acute Category: Medical Code(s): N70.93 - Salpingitis and oophoritis, unspecified - Assessment and plan all Dx Assessment and Plan for all problems:: She is doing better this morning. Her pain is reasonably well controlled. She has oral pain medicine ordered. She is voiding well. We will continue with her IV antibiotics for now. We will continue these for the next couple of days. We will continue with her KEMAL drain until she stops draining.
--- NOTE | 2017-08-05 09:11 | P.PN_ITS ---
Internal Medicine - PN: Subj *Date: 08/05/17 *Time: 09:08 Interval history: She is doing well this morning. Her hemoglobin is stable. Her electrolytes are normal. Her pain is reasonably well controlled. She continues to drain from her KEMAL drain it the fluid is serosanguineous. She is eating and drinking and ambulating. She denies any shortness of breath, chest pain or calf tenderness. Her belly is soft. Her heart sounds are normal her chest is clear and her bowel sounds are normal. She has had her catheter removed and she is voiding well. Exam Vital signs and Labs for Last 24 Hours: Temp Pulse Resp BP Pulse Ox 97.6 F 88 15 89/54 98 08/05/17 08:23 08/05/17 08:23 08/05/17 08:23 08/05/17 08:23 08/05/17 08:23 Laboratory Results - last 24 hr 08/04/17 13:55: Urine Color Yellow, Urine Appearance Clear, Urine pH 6.0, Ur Specific [place] >= 1.030, Urine Protein 1+, Urine Glucose (UA) Negative, Urine Ketones Negative, Urine Blood Negative, Urine Nitrate Negative, Urine Bilirubin 1+ A, Urine Urobilinogen 2.0, Ur Leukocyte Esterase Negative, Urine RBC Occasional, Urine WBC 3-5, Ur Squamous Epith Cells 3-5, Urine Bacteria 3+ A, Hyaline Casts 5-10 08/04/17 15:40: Random Gentamicin 2.8 L 08/04/17 18:40: WBC 10.1 D, RBC 3.34 L, Hgb 9.9 L D, Hct 30.9 L, MCV 92.5, MCH 29.8, MCHC 32.2, RDW 11.7, Plt Count 372 D, MPV 8.0, Neut % (Auto) 93.8 H, Lymph % (Auto) 4.2 L, [place] % (Auto) 1.4 L, Eos % (Auto) 0.5, Baso % (Auto) 0.0 L , Neut # (Auto) 9.5 H, Lymph # (Auto) 0.4 L, [place] # (Auto) 0.1, Eos # (Auto) 0.1 , Baso # (Auto) 0.0, Total Counted 100, Neutrophils % (Manual) 76, Band Neutrophils % 7.0, Lymphocytes % (Manual) 4 L, Monocytes % (Manual) 11 H, Metamyelocytes % 2.0 H, Platelet Estimate Normal, RBC Morphology Normal 08/04/17 23:25: Random Gentamicin 0.3 L 08/05/17 06:44: WBC 16.7 H D, RBC 3.51 L, Hgb 10.3 L, Hct 33.3 L, MCV 94.7, MCH 29.4, MCHC 31.0 L, RDW 11.8, Plt Count 420, MPV 7.8, Neut % (Auto) 93.8 H, Lymph % (Auto) 4.3 L, [place] % (Auto) 1.7, Eos % (Auto) 0.1, Baso % (Auto) 0.1, Neut # (Auto) 15.7 H, Lymph # (Auto) 0.7, [place] # (Auto) 0.3, Eos # (Auto) 0.0, Baso # (Auto) 0.0, Total Counted 100, Neutrophils % (Manual) 90 H, Band Neutrophils % 3.0, Lymphocytes % (Manual) 5 L, Monocytes % (Manual) 2, Platelet Estimate Normal 08/05/17 06:44: Sodium 139, Potassium 4.0 D, Chloride 105, Carbon Dioxide 26, Anion Gap 12.0, BUN 6 L, Creatinine 0.54 L D, Estimated Creat Clear 132, Estimated GFR 133, Est GFR ( Amer) 162 D, Glucose 116 H I & O for Last 24 hours: Intake & Output 08/02/17 08/03/17 08/04/17 08/05/17 11:59 11:59 11:59 11:59 Intake Total 7356 / 7356 Output Total 920 / 920 Balance 6436 / 6436 Weight 120 lb Microbiology Reports for the Last 24 Hours: Microbiology 08/04/17 14:10 Appendix Gram Stain - Final - Constitutional no acute distress - *Routine Cardiovascular Exam Present: Normal S1, Normal S2 - *Routine Abdominal Exam Present: soft, normoactive bowel sounds Comments: Her incisions are clean and dry. - *Routine Skin Exam Present: warm Comments: Good color Assessment and Plan (1) Tubo-ovarian abscess Current visit: Yes Status: Acute Category: Medical Code(s): N70.93 - Salpingitis and oophoritis, unspecified - Assessment and plan all Dx Assessment and Plan for all problems:: She is doing better this morning. Her pain is reasonably well controlled. She has oral pain medicine ordered. S
--- NOTE | 2017-08-05 10:33 | HMH.PHACONS ---
- Pharmacy Consult Date: 08/05/17 Time: 10:33 Referring provider: DR. TURNER Reason for Consult:: GENTAMICIN LEVELS Allergies and ADEs:: Allergies Allergy/AdvReac Type Severity Reaction Status Date / Time Penicillins Allergy Verified 08/04/17 04:38 Home Medications:: Home Medications Medication Instructions Recorded Confirmed Type No Known Home Medications [No 08/04/17 08/04/17 History Known Home Medications] Height: 1.63 m Weight: 54.431 kg Laboratory Results:: Laboratory Results - last 24 hr 08/04/17 13:55: Urine Color Yellow, Urine Appearance Clear, Urine pH 6.0, Ur Specific [place] >= 1.030, Urine Protein 1+, Urine Glucose (UA) Negative, Urine Ketones Negative, Urine Blood Negative, Urine Nitrate Negative, Urine Bilirubin 1+ A, Urine Urobilinogen 2.0, Ur Leukocyte Esterase Negative, Urine RBC Occasional, Urine WBC 3-5, Ur Squamous Epith Cells 3-5, Urine Bacteria 3+ A, Hyaline Casts 5-10 08/04/17 15:40: Random Gentamicin 2.8 L 08/04/17 18:40: WBC 10.1 D, RBC 3.34 L, Hgb 9.9 L D, Hct 30.9 L, MCV 92.5, MCH 29.8, MCHC 32.2, RDW 11.7, Plt Count 372 D, MPV 8.0, Neut % (Auto) 93.8 H, Lymph % (Auto) 4.2 L, [place] % (Auto) 1.4 L, Eos % (Auto) 0.5, Baso % (Auto) 0.0 L, Neut # (Auto) 9.5 H, Lymph # (Auto) 0.4 L, [place] # (Auto) 0.1, Eos # (Auto) 0.1, Baso # (Auto) 0.0, Total Counted 100, Neutrophils % (Manual) 76, Band Neutrophils % 7.0, Lymphocytes % (Manual) 4 L, Monocytes % (Manual) 11 H, Metamyelocytes % 2.0 H, Platelet Estimate Normal, RBC Morphology Normal 08/04/17 23:25: Random Gentamicin 0.3 L 08/05/17 06:44: WBC 16.7 H D, RBC 3.51 L, Hgb 10.3 L, Hct 33.3 L, MCV 94.7, MCH 29.4, MCHC 31.0 L, RDW 11.8, Plt Count 420, MPV 7.8, Neut % (Auto) 93.8 H, Lymph % (Auto) 4.3 L, [place] % (Auto) 1.7, Eos % (Auto) 0.1, Baso % (Auto) 0.1, Neut # (Auto) 15.7 H, Lymph # (Auto) 0.7, [place] # (Auto) 0.3, Eos # (Auto) 0.0, Baso # (Auto) 0.0, Total Counted 100, Neutrophils % (Manual) 90 H, Band Neutrophils % 3.0, Lymphocytes % (Manual) 5 L, Monocytes % (Manual) 2, Platelet Estimate Normal 08/05/17 06:44: Sodium 139, Potassium 4.0 D, Chloride 105, Carbon Dioxide 26, Anion Gap 12.0, BUN 6 L, Creatinine 0.54 L D, Estimated Creat Clear 132, Estimated GFR 133, Est GFR ( Amer) 162 D, Glucose 116 H Medical History: Denies:: Cancer, Diabetes Mellitus Type 1, Diabetes Mellitus Type 2, MRSA, Seizures Assessment and Plan (1) Tubo-ovarian abscess Current visit: Yes Status: Acute Category: Medical Code(s): N70.93 - Salpingitis and oophoritis, unspecified - Assessment and plan all Dx Assessment and Plan for all problems:: GENTAMICIN LEVELS 4-HOUR POST INFUSION: 2.8 CALCULATED PEAK: 6.47 MCG/ML 12-HOUR POST INFUSION: 0.3 CALCULATED TROUGH: 0.01 MCG/ML BASED ON LEVELS AND PATIENT FACTORS, RECOMMEND INCREASING DOSE TO GENTAMICIN 380 MG (7 MG/KG/DBW) IV Q24H. PHARMACY WILL CONTINUE TO MONITOR DAILY AND ADJUST APPROPRIATE.
--- NOTE | 2017-08-05 10:38 | P.CONPHA_ITS ---
- Pharmacy Consult Date: 08/05/17 Time: 10:33 Referring provider: DR. TURNER Reason for Consult:: GENTAMICIN LEVELS Allergies and ADEs:: Allergies Allergy/AdvReac Type Severity Reaction Status Date / Time Penicillins Allergy Verified 08/04/17 04:38 Home Medications:: Home Medications Medication Instructions Recorded Confirmed Type No Known Home Medications [No 08/04/17 08/04/17 History Known Home Medications] Height: 1.63 m Weight: 54.431 kg Laboratory Results:: Laboratory Results - last 24 hr 08/04/17 13:55: Urine Color Yellow, Urine Appearance Clear, Urine pH 6.0, Ur Specific [place] >= 1.030, Urine Protein 1+, Urine Glucose (UA) Negative, Urine Ketones Negative, Urine Blood Negative, Urine Nitrate Negative, Urine Bilirubin 1+ A, Urine Urobilinogen 2.0, Ur Leukocyte Esterase Negative, Urine RBC Occasional, Urine WBC 3-5, Ur Squamous Epith Cells 3-5, Urine Bacteria 3+ A, Hyaline Casts 5-10 08/04/17 15:40: Random Gentamicin 2.8 L 08/04/17 18:40: WBC 10.1 D, RBC 3.34 L, Hgb 9.9 L D, Hct 30.9 L, MCV 92.5, MCH 29.8, MCHC 32.2, RDW 11.7, Plt Count 372 D, MPV 8.0, Neut % (Auto) 93.8 H, Lymph % (Auto) 4.2 L, [place] % (Auto) 1.4 L, Eos % (Auto) 0.5, Baso % (Auto) 0.0 L , Neut # (Auto) 9.5 H, Lymph # (Auto) 0.4 L, [place] # (Auto) 0.1, Eos # (Auto) 0.1 , Baso # (Auto) 0.0, Total Counted 100, Neutrophils % (Manual) 76, Band Neutrophils % 7.0, Lymphocytes % (Manual) 4 L, Monocytes % (Manual) 11 H, Metamyelocytes % 2.0 H, Platelet Estimate Normal, RBC Morphology Normal 08/04/17 23:25: Random Gentamicin 0.3 L 08/05/17 06:44: WBC 16.7 H D, RBC 3.51 L, Hgb 10.3 L, Hct 33.3 L, MCV 94.7, MCH 29.4, MCHC 31.0 L, RDW 11.8, Plt Count 420, MPV 7.8, Neut % (Auto) 93.8 H, Lymph % (Auto) 4.3 L, [place] % (Auto) 1.7, Eos % (Auto) 0.1, Baso % (Auto) 0.1, Neut # (Auto) 15.7 H, Lymph # (Auto) 0.7, [place] # (Auto) 0.3, Eos # (Auto) 0.0, Baso # (Auto) 0.0, Total Counted 100, Neutrophils % (Manual) 90 H, Band Neutrophils % 3.0, Lymphocytes % (Manual) 5 L, Monocytes % (Manual) 2, Platelet Estimate Normal 08/05/17 06:44: Sodium 139, Potassium 4.0 D, Chloride 105, Carbon Dioxide 26, Anion Gap 12.0, BUN 6 L, Creatinine 0.54 L D, Estimated Creat Clear 132, Estimated GFR 133, Est GFR ( Amer) 162 D, Glucose 116 H Medical History: Denies:: Cancer, Diabetes Mellitus Type 1, Diabetes Mellitus Type 2, MRSA, Seizures Assessment and Plan (1) Tubo-ovarian abscess Current visit: Yes Status: Acute Category: Medical Code(s): N70.93 - Salpingitis and oophoritis, unspecified - Assessment and plan all Dx Assessment and Plan for all problems:: GENTAMICIN LEVELS 4-HOUR POST INFUSION: 2.8 CALCULATED PEAK: 6.47 MCG/ML 12-HOUR POST INFUSION: 0.3 CALCULATED TROUGH: 0.01 MCG/ML BASED ON LEVELS AND PATIENT FACTORS, RECOMMEND INCREASING DOSE TO GENTAMICIN 380 MG (7 MG/KG/DBW) IV Q24H. PHARMACY WILL CONTINUE TO MONITOR DAILY AND ADJUST APPROPRIATE.
--- NOTE | 2017-08-05 11:15 | P.CONPHA_ITS ---
[facility] Pharmacy VTE Monitoring - Patient Demographics Admission date: 08/04/17 Report Date: 08/05/17 Time: 11:14 Allergies/Adverse Reactions: Patient Allergies Penicillins Allergy (Verified 08/04/17 04:38) Height: 1.63 m Weight: 54.431 kg Patient Problems: Current Active Problems (This Medical Record has been edited. Action required.) Tubo-ovarian abscess (Acute) - VTE Risk Labs: VTE Related Lab Results Hgb 10.3 g/dL (12.2-16.2) L 08/05/17 06:44 Hct 33.3 % (37.0-47.0) L 08/05/17 06:44 Plt Count 420 K/mm3 (142-424) 08/05/17 06:44 BUN 6 mg/dL (7-18) L 08/05/17 06:44 Creatinine 0.54 mg/dL (0.55-1.02) L D 08/05/17 06:44 Estimated Creat Clear 132 mL/min (0-300) 08/05/17 06:44 Was VTE Risk Assessment Performed: Yes VTE Risk Level: Very Low Risk Clinical Trial Participant: No - Prophylaxis VTE Prophylaxis Ordered?: Yes Types of VTE Prophylaxis: IPCS Knee High Location of Applied Device: Bilateral Lower Extremeties
[2017-08-05 11:45] VITALS: BP 81/56; PULSE 69; RESP 15; TEMP 36.4; O2SAT 98
--- NOTE | 2017-08-05 14:51 | PC.NURSE ---
Changed RAMANDEEP dressing due to saturated with serousangious fluid; applied 2x2 telfa , covered with tegaderm, pt tender to touch, tolerated fair, applied tape to ramandeep line to keep from pulling out.
--- NOTE | 2017-08-05 15:32 | PC.NURSE ---
PT C/O not being able to sleep much and didn't get much sleep last night either. Spoke too Dr. Brewer about getting her something to help with sleep. Dr. Brewer ordered Resteril 10mg PO PRN at bedtime for insomnia
[2017-08-05 17:15] VITALS: BP 117/71; PULSE 79; RESP 17; TEMP 36.4; O2SAT 99
--- NOTE | 2017-08-05 18:53 | PC.NURSE ---
test note for time of day
--- NOTE | 2017-08-05 19:14 | PC.NURSE ---
Report given to Vero MILIAN
[2017-08-05 19:30] VITALS: BP 84/55; PULSE 72; RESP 16; TEMP 36.4; O2SAT 98
[2017-08-05 23:05] VITALS: BP 103/64; PULSE 88; RESP 16; TEMP 36.1; O2SAT 99
--- NOTE | 2017-08-05 23:26 | PC.NURSE ---
UPON ENTERING ROOM PT WAS ASLEEP.SUNSHINE.TORADOL GIVEN,PT REPORTS JUST THE MUSCLE SORENESS.33ML OF SEROUS DRAINAGE EMPTIED FROM KEMAL DRAIN.NO NEW DRAINAGE TO 3 LAP SITES.PT REPORTS SHE DECIDED TO WAIT UNTIL MORNING TO GET CLEANED UP.TIRED RIGHT NOW
[2017-08-06 01:03] LABS: Gentamicin,Random 1.2 ug/mL (4.0-10.0)
--- NOTE | 2017-08-06 01:22 | PC.NURSE ---
reapplied scudds to bilateral legs.pt reports she forgot to put them back on with sleeping,resports they feel good to her legs
[2017-08-06 03:30] VITALS: BP 94/55; PULSE 76; RESP 16; TEMP 36.2; O2SAT 99
--- NOTE | 2017-08-06 04:17 | PC.NURSE ---
no acute changes in previous assessment.lungs clear,resp.even and unlabored.no new drainage to 3 lap sites,have emptied a total of 101 ml of serous drainage,pt has been afebrile.pt reports no trouble voiding and denies any gas
--- NOTE | 2017-08-06 06:45 | PC.NURSE ---
pt up to shower. with assist from .bed linens changed at this time
[2017-08-06 06:48] LABS: Eosinophils % 0.1 % (0.1-12.0); Hematocrit 29.5 % (37.0-47.0); Hemoglobin 9.3 g/dL (12.2-16.2); Lymphocytes # 1.7 K/mm3 (0.7-4.5); Lymphocytes % 11.1 K/mm3 (10-50); Mean Corpuscular HGB Conc 31.5 g/dL (31.8-35.4); Mean Corpuscular Hemoglobin 29.6 pg (27.0-31.2); Mean Platelet Volume 8.1 fl (7.4-10.4); Monocytes # 0.4 K/mm3 (0.1-1.0); Monocytes % 2.5 % (1.7-9.3); Neutrophils # 12.9 K/mm3 (1.8-7.8); Neutrophils % 86.3 % (37.0-80.0); Platelet Count 428 K/mm3 (142-424); Red Blood Count 3.14 M/mm3 (4.20-5.40); Red Cell Distribution Width 11.9 % (11.5-17.5)
[2017-08-06 06:57] LABS: MANUAL DIFFERENTIAL MANUAL DIFFERENTIAL (MANUAL DIFF)
--- NOTE | 2017-08-06 07:15 | PC.NURSE ---
report given to alfredorn
[2017-08-06 07:59] LABS: Lymphocytes % 10 % (10-50); Monocytes % 4 % (2-9); Neutrophils % 84 % (42-76); Platelet Estimate Slight Increase; Total Cells Counted 100
[2017-08-06 08:00] VITALS: BP 117/71; PULSE 79; RESP 16; TEMP 36.4
--- NOTE | 2017-08-06 08:03 | P.PN_ITS ---
Internal Medicine - PN: Subj *Date: 08/06/17 *Time: 08:02 Interval history: She is doing well. She is afebrile. Her pain is well controlled. She continues to drain cloudy fluid from her KEMAL drain. Otherwise she is doing well. Exam Vital signs and Labs for Last 24 Hours: Temp Pulse Resp BP Pulse Ox 97.1 F L 76 16 94/55 99 08/06/17 03:30 08/06/17 03:30 08/06/17 03:30 08/06/17 03:30 08/06/17 03:30 Laboratory Results - last 24 hr 08/05/17 06:44: Total Counted 100, Neutrophils % (Manual) 90 H, Band Neutrophils % 3.0, Lymphocytes % (Manual) 5 L, Monocytes % (Manual) 2, Platelet Estimate Normal 08/06/17 00:15: Random Gentamicin 1.2 L 08/06/17 06:20: WBC 15.0 H, RBC 3.14 L, Hgb 9.3 L, Hct 29.5 L, MCV 94.0, MCH 29.6, MCHC 31.5 L, RDW 11.9, Plt Count 428 H, MPV 8.1, Neut % (Auto) 86.3 H, Lymph % (Auto) 11.1, [place] % (Auto) 2.5, Eos % (Auto) 0.1, Baso % (Auto) 0.0 L, Neut # (Auto) 12.9 H, Lymph # (Auto) 1.7, [place] # (Auto) 0.4, Eos # (Auto) 0.0, Baso # (Auto) 0.0, Total Counted 100, Neutrophils % (Manual) 84 H, Band Neutrophils % 2.0, Lymphocytes % (Manual) 10, Monocytes % (Manual) 4, Platelet Estimate Slight increase I & O for Last 24 hours: Intake & Output 08/03/17 08/04/17 08/05/17 08/06/17 11:59 11:59 11:59 11:59 Intake Total 7706 / 7706 2437 / 2437 Output Total 1370 / 1370 923 / 923 Balance 6336 / 6336 1514 / 1514 Weight 120 lb 120 lb Microbiology Reports for the Last 24 Hours: Microbiology 08/04/17 13:55 Urine,Catheterized Urine Culture - Preliminary NO GROWTH AFTER 24 HOURS 08/04/17 14:10 Appendix Gram Stain - Final - Constitutional no acute distress - *Routine Abdominal Exam Present: soft (Her incisions are clean and dry.) Assessment and Plan (1) Tubo-ovarian abscess Current visit: Yes Status: Acute Category: Medical Code(s): N70.93 - Salpingitis and oophoritis, unspecified - Assessment and plan all Dx Assessment and Plan for all problems:: She is doing well today. We will continue her IV antibiotics for another 24 hours. Her cultures for the abscess were negative.
--- NOTE | 2017-08-06 11:24 | HMH.PHACONS ---
- Pharmacy Consult Date: 08/06/17 Time: 11:24 Referring provider: DR. TURNER Reason for Consult:: GENTAMICIN LEVEL Allergies and ADEs:: Allergies Allergy/AdvReac Type Severity Reaction Status Date / Time Penicillins Allergy Verified 08/04/17 04:38 Home Medications:: Home Medications Medication Instructions Recorded Confirmed Type No Known Home Medications [No 08/04/17 08/04/17 History Known Home Medications] Height: 1.63 m Weight: 54.431 kg Laboratory Results:: Laboratory Results - last 24 hr 08/06/17 00:15: Random Gentamicin 1.2 L 08/06/17 06:20: WBC 15.0 H, RBC 3.14 L, Hgb 9.3 L, Hct 29.5 L, MCV 94.0, MCH 29.6, MCHC 31.5 L, RDW 11.9, Plt Count 428 H, MPV 8.1, Neut % (Auto) 86.3 H, Lymph % (Auto) 11.1, [place] % (Auto) 2.5, Eos % (Auto) 0.1, Baso % (Auto) 0.0 L, Neut # (Auto) 12.9 H, Lymph # (Auto) 1.7, [place] # (Auto) 0.4, Eos # (Auto) 0.0, Baso # (Auto) 0.0, Total Counted 100, Neutrophils % (Manual) 84 H, Band Neutrophils % 2.0, Lymphocytes % (Manual) 10, Monocytes % (Manual) 4, Platelet Estimate Slight increase Medical History: Denies:: Cancer, Diabetes Mellitus Type 1, Diabetes Mellitus Type 2, MRSA, Seizures Assessment and Plan (1) Tubo-ovarian abscess Current visit: Yes Status: Acute Category: Medical Code(s): N70.93 - Salpingitis and oophoritis, unspecified - Assessment and plan all Dx Assessment and Plan for all problems:: PATIENT'S GENTAMICIN LEVEL AT 12 HOURS POST INFUSION WAS 1.2 MCG/ML WITH 7 MG/KG DBW DOSING. RECOMMEND PATIENT CONTINUE WITH CURRENT DOSE AND INTERVAL AT THIS TIME. PHARAMACY WILL FOLLOW DAILY AND ADJUST APPROPRIATE. DAWN SEE, PHARMD
--- NOTE | 2017-08-06 11:28 | P.CONPHA_ITS ---
- Pharmacy Consult Date: 08/06/17 Time: 11:24 Referring provider: DR. TURNER Reason for Consult:: GENTAMICIN LEVEL Allergies and ADEs:: Allergies Allergy/AdvReac Type Severity Reaction Status Date / Time Penicillins Allergy Verified 08/04/17 04:38 Home Medications:: Home Medications Medication Instructions Recorded Confirmed Type No Known Home Medications [No 08/04/17 08/04/17 History Known Home Medications] Height: 1.63 m Weight: 54.431 kg Laboratory Results:: Laboratory Results - last 24 hr 08/06/17 00:15: Random Gentamicin 1.2 L 08/06/17 06:20: WBC 15.0 H, RBC 3.14 L, Hgb 9.3 L, Hct 29.5 L, MCV 94.0, MCH 29.6, MCHC 31.5 L, RDW 11.9, Plt Count 428 H, MPV 8.1, Neut % (Auto) 86.3 H, Lymph % (Auto) 11.1, [place] % (Auto) 2.5, Eos % (Auto) 0.1, Baso % (Auto) 0.0 L, Neut # (Auto) 12.9 H, Lymph # (Auto) 1.7, [place] # (Auto) 0.4, Eos # (Auto) 0.0, Baso # (Auto) 0.0, Total Counted 100, Neutrophils % (Manual) 84 H, Band Neutrophils % 2.0, Lymphocytes % (Manual) 10, Monocytes % (Manual) 4, Platelet Estimate Slight increase Medical History: Denies:: Cancer, Diabetes Mellitus Type 1, Diabetes Mellitus Type 2, MRSA, Seizures Assessment and Plan (1) Tubo-ovarian abscess Current visit: Yes Status: Acute Category: Medical Code(s): N70.93 - Salpingitis and oophoritis, unspecified - Assessment and plan all Dx Assessment and Plan for all problems:: PATIENT'S GENTAMICIN LEVEL AT 12 HOURS POST INFUSION WAS 1.2 MCG/ML WITH 7 MG/ KG DBW DOSING. RECOMMEND PATIENT CONTINUE WITH CURRENT DOSE AND INTERVAL AT THIS TIME. PHARAMACY WILL FOLLOW DAILY AND ADJUST APPROPRIATE. DAWN SEE, PHARMD
[2017-08-06 15:40] VITALS: BP 117/71; PULSE 79; RESP 16; TEMP 36.5
--- NOTE | 2017-08-06 19:03 | PC.NURSE ---
Report given to Vero MILIAN
--- NOTE | 2017-08-06 19:04 | PC.NURSE ---
Late entry: 08-06 @ 1330, pt reports started her period and feeling crampy Explained toradol should also help with cramps, pt verbalized understanding and no other complaints at this time
[2017-08-06 20:00] VITALS: BP 108/58; PULSE 97; RESP 16; TEMP 36.6; O2SAT 100
--- NOTE | 2017-08-06 22:15 | PC.NURSE ---
pt up to br per assist of ., rings out for assistance from br.hurry into br and pt is wanting her iv disconnected because she needs to concentrate on having a bowel movement.reports pump making noises,needed plugging up.disconnected iv,flushed lock
--- NOTE | 2017-08-06 23:00 | PC.NURSE ---
pt reports passed a lot of gas no bowel movement voided 200ml clear yellow urine
[2017-08-07 00:15] VITALS: BP 104/56; PULSE 56; RESP 16; TEMP 36.7; O2SAT 98
[2017-08-07 04:45] VITALS: BP 104/68; PULSE 93; RESP 16; TEMP 36.9; O2SAT 98
--- NOTE | 2017-08-07 05:15 | PC.NURSE ---
NO ACUTE CHANGES FROM PREVIOUS ASSESSMENT.RESP.EVEN AND UNLABORED.PT HAS GENERALIZED EDEMA IN UPPER THIGHES AND PUBIC AREAL PT REPORTS LESS TENDERNESS IN PUBIC AREA.NO NEW DRAINAGE TO DRESSING,KEMAL DRAINAGE GAMBOA LOOKING 70ML TOTAL PT REPORTS PASSING A LOT OF GAS.PT DOING WELL ON OXYCODONE
--- NOTE | 2017-08-07 07:34 | PC.NURSE ---
report given to tayarn
[2017-08-07 07:45] VITALS: BP 108/62; PULSE 95; RESP 20; TEMP 36.7; O2SAT 99
[2017-08-07 07:46] VITALS: O2SAT 99
--- NOTE | 2017-08-07 08:44 | PC.NURSE ---
drainage amount documented is from ramandeep drain. drainage fluid, yellow to melon color.
--- NOTE | 2017-08-07 10:24 | HMH.ACPN ---
Internal Medicine - PN: Subj *Date: 08/07/17 *Time: 10:24 Exam Vital signs and Labs for Last 24 Hours: Temp Pulse Resp BP Pulse Ox 98.0 F 95 H 20 108/62 99 08/07/17 07:45 08/07/17 07:45 08/07/17 07:45 08/07/17 07:45 08/07/17 07:46 I & O for Last 24 hours: Intake & Output 08/04/17 08/05/17 08/06/17 08/07/17 23:59 23:59 23:59 23:59 Intake Total 4000 / 4000 6143 / 6143 1110 / 1110 Output Total 250 / 250 1563 / 1563 1176 / 1176 516 / 516 Balance 3750 / 3750 4580 / 4580 -66 / -66 -516 / -516 Weight 54.431 kg 54.431 kg 54.431 kg Microbiology Reports for the Last 24 Hours: Microbiology 08/04/17 14:10 Appendix Gram Stain - Final 08/04/17 14:10 Appendix Abscess Culture - Preliminary Escherichia coli Gram Positive Cocci 08/04/17 13:55 Urine,Catheterized Urine Culture - Final NO GROWTH AFTER 48 HOURS Assessment and Plan (1) Tubo-ovarian abscess Current visit: Yes Status: Acute Category: Medical Code(s): N70.93 - Salpingitis and oophoritis, unspecified The patient's infection will respond to the chosen ABx?: Yes Is the patient receiving the right drug, dose, and route?: Yes Could a more targeted ABx be ordered?: No
--- NOTE | 2017-08-07 10:36 | HMH.DCSUM ---
General - General Admission date: 08/04/17 Discharge date: 08/07/17 HPI HPI: She is a 27-year-old lady who was admitted through the ER with an abscess and lower abdominal pain. She had a one-week history of feeling unwell and having pain. On the morning of admission she was in severe pain. An ultrasound showed a 10 cm abscess on the right side of her pelvis. As result of that she was admitted for surgical intervention. Objective Vital signs: Temp Pulse Resp BP Pulse Ox 98.0 F 95 H 20 108/62 99 08/07/17 07:45 08/07/17 07:45 08/07/17 07:45 08/07/17 07:45 08/07/17 07:46 no acute distress Hospital Course Hospital Course: On August 04, 2017 she underwent a laparoscopic right ovarian cystectomy and drained copious amounts of pus from this 10 cm abscess in the right ovary. The appendix was adherent to the right ovary and it is not clear whether this was the source of her abscess. I also did a laparoscopic appendectomy at the same time. She has done well postoperatively and has remained afebrile throughout her hospitalization. She is eating and drinking and ambulating. Her white blood cell count is going down. She has not had a bowel movement. She denies shortness of breath, chest pain or calf tenderness. She continues to have a KEMAL drain and she is draining enough fluid that we will keep the drain in place for the next few days. She will follow-up with me in the office in about 3 days time. Results Labs on day of discharge: Preliminary micro results at discharge 08/04/17 14:10 Abscess Culture - Preliminary Appendix Escherichia coli Gram Positive Cocci DS: Diagnosis - Discharge Diagnosis (1) Tubo-ovarian abscess Status: Acute Meds Home Medications Medication Instructions Recorded Confirmed Type No Known Home Medications [No 08/04/17 08/04/17 History Known Home Medications] Allergies Allergy/AdvReac Type Severity Reaction Status Date / Time Penicillins Allergy Verified 08/04/17 04:38 Discharge Plan - Patient Discharge Instructions ACTIVITY: No heavy lifting DIET: continue same diet - Follow up Plan Follow up with: Rajiv Brewer MD [Staff Physician] - Disposition: Home, Self-[facility] Medications: Home Medications Medication Instructions Recorded Confirmed Type No Known Home Medications [No 08/04/17 08/04/17 History Known Home Medications] Prescriptions/Medication Reconciliation: New Oxycodone HCl [OxyIR 5mg tablet] 10 mg PO Q4HP PRN #30 tablet PRN Reason: Moderate To Severe Pain No Action No Known Home Medications [No Known Home Medications]
--- NOTE | 2017-08-07 11:07 | HMH.ACPN ---
Internal Medicine - PN: Subj *Date: 08/07/17 *Time: 11:07 Exam Vital signs and Labs for Last 24 Hours: Temp Pulse Resp BP Pulse Ox 98.0 F 95 H 20 108/62 99 08/07/17 07:45 08/07/17 07:45 08/07/17 07:45 08/07/17 07:45 08/07/17 07:46 I & O for Last 24 hours: Intake & Output 08/04/17 08/05/17 08/06/17 08/07/17 23:59 23:59 23:59 23:59 Intake Total 4000 / 4000 6143 / 6143 1110 / 1110 Output Total 250 / 250 1563 / 1563 1176 / 1176 516 / 516 Balance 3750 / 3750 4580 / 4580 -66 / -66 -516 / -516 Weight 54.431 kg 54.431 kg 54.431 kg Microbiology Reports for the Last 24 Hours: Microbiology 08/04/17 14:10 Appendix Gram Stain - Final 08/04/17 14:10 Appendix Abscess Culture - Preliminary Escherichia coli Gram Positive Cocci 08/04/17 13:55 Urine,Catheterized Urine Culture - Final NO GROWTH AFTER 48 HOURS Assessment and Plan (1) Tubo-ovarian abscess Current visit: Yes Status: Acute Category: Medical Code(s): N70.93 - Salpingitis and oophoritis, unspecified The patient's infection will respond to the chosen ABx?: Yes Is the patient receiving the right drug, dose, and route?: Yes Could a more targeted ABx be ordered?: No (C&S REVIEWED) 0 (UNKNOWN, PT DC'D TODAY)
== END 2017-08-07 12:55 | disposition home or self-care (01) | DRG 742 ==
LOC: ER 05:02 → OB 07:57 → ER 08:38
PROVIDERS: Admitting Provider Nurse Practitioner Obstetrics & Gynecology; Emergency Provider Emergency Medicine; Visit Provider Nurse Practitioner Obstetrics & Gynecology
PROC: 0DTJ4ZZ Resection of Appendix, Percutaneous Endoscopic Approach (ICD-10-PCS; CPT 49320; principal; 2017-08-04 13:00)
DX: N70.03 Acute salpingitis and oophoritis (principal); K35.3 Acute appendicitis with localized peritonitis
CPT/HCPCS: 44970; 58662; 36415; 74176; 76830; 80048; 80053; 80170; 81001; 82150; 83690; 84703; 85007; 85025; 87070; 87077; 87086; 87186; 87205; 88304; 88305; 88342; 94761; 96366; 99282; J0131; J2405; J2710

== ENCOUNTER 2017-09-25 15:25 | Inpatient (IN) | payer OTHER, SELFPAY ==
[2017-09-25] VITALS (16 sets, daily range): BP systolic 101–118; BP diastolic 54–71; PULSE 62–90; RESP 14–18; TEMP 36.4–37.1; O2SAT 98–100; BMI 21.9
--- NOTE | 2017-09-25 11:51 | HMH.ANESCL ---
[facility] Anesthesia Checklist - Patient Identification Patient Identification: Arm Band, Verbal (Name & ) - Structural Data Admitted From: Home Planned Operative Procedure/s: dx lap Consent for Planned Operative Procedure(s) Verified: Yes Verified Documents: Surgical Consent - NPO Status Verified Time NPO: 08:00 - Chart Verification Results Verified: CBC, BMP - Additional verifications Patient : No Anesthesia Reactions: No Hx Blood Transfusions: No Blood Transfusion Reaction: No Cephalosporin Allergy: No Previous Colonoscopy: No - Cardiovascular Assessment Heart Sounds: S1 & S2 Pulse Strength: Baseline Pulse Rhythm: Regular Peripheral Edema: No - Airway Assessment C-Spine Mobility Assessed: Yes TMJ Mobility Assessed: Yes Dentition: Good Dentition - Neurological Assessment Level of Consciousness: Awake, Alert, Appropriate Hx Seizures: No Numbness or tingling in extremities: No - Anesthesia Plan Anesthesia Risk discussed: Yes Anesthesia Plan: Verified ASA Class: I Anesthesia Type: General [facility] Anesthesia HX I have reviewed the patient's past medical history: Yes Medical History: Denies:: Cancer, Diabetes Mellitus Type 1, Diabetes Mellitus Type 2, MRSA, Seizures Other Medical History: Denies: Blood Transfusion Reaction Other Surgeries: Yes: Appendectomy, Other Amputation: No Fractures: No *Family Hx:: No significant family history, Cancer
[2017-09-25 12:11] LABS: Anion Gap 11.8 mEq/L (5-15); Blood Urea Nitrogen 12 mg/dL (7-18); Carbon Dioxide 25 mmol/L (21.0-32.0); Chloride 105 mmol/L (98-107); Creatinine Clearance Estimated 129 mL/min (0-300); Creatinine,Serum 0.59 mg/dL (0.55-1.02); Estimated Glomerular Filt Rate 121 ml/min (>60); GFR (African American) 146 ML/MIN (>60); Glucose 104 mg/dL (74-106); Potassium 3.8 mmoL/L (3.5-5.1); Sodium 138 mmol/L (136-145)
[2017-09-25 12:27] LABS: Basophils % 0.2 % (0.1-2.0); Eosinophils % 0.2 % (0.1-12.0); Hematocrit 41.8 % (37.0-47.0); Lymphocytes # 1.6 K/mm3 (0.7-4.5); Lymphocytes % 10.7 K/mm3 (10-50); Mean Corpuscular HGB Conc 31.2 g/dL (31.8-35.4); Mean Corpuscular Volume 95.9 fl (81-99); Mean Platelet Volume 7.4 fl (7.4-10.4); Monocytes # 0.4 K/mm3 (0.1-1.0); Monocytes % 2.8 % (1.7-9.3); Neutrophils # 13.1 K/mm3 (1.8-7.8); Neutrophils % 86.1 % (37.0-80.0); Platelet Count 353 K/mm3 (142-424); Red Blood Count 4.36 M/mm3 (4.20-5.40); Red Cell Distribution Width 14.4 % (11.5-17.5); White Blood Count 15.2 K/mm3 (4.8-10.8)
[2017-09-25 12:29] LABS: MANUAL DIFFERENTIAL MANUAL DIFFERENTIAL (MANUAL DIFF)
[2017-09-25 12:54] LABS: Lymphocytes % 7 % (10-50); Monocytes % 6 % (2-9); Neutrophils % 87 % (42-76); Platelet Estimate Normal; RBC Morphology Normal; Total Cells Counted 100
--- NOTE | 2017-09-25 14:41 | HMH.OPNOTE ---
Date of procedure: 09/25/17 Pre-op Diagnosis:: Pelvic pain, possible ruptured ovarian cyst, history of tubo-ovarian abscess 2 months ago. Post-op Diagnosis:: Pelvic pain, tubo-ovarian abscess on the right side, pelvic peritoneal adhesions Procedure performed:: Laparoscopic right salpingo-oophorectomy, left salpingectomy, lysis of adhesions Surgeon:: Rajiv Brewer MD CONDITIONING ROOM WORKER:: Luis Almaguer Anesthesia: GETA Estimated blood loss (mL): 300 Clinical Note:: She is a 27-year-old lady who had a tubo-ovarian abscess as a result of appendicitis approximately 2 months ago. At that time her pelvis was full of pus and there was an abscess in the right ovary. The tip of her appendix was adherent to the right ovary and the diagnosis from pathology was acute appendicitis. At that time she had a right variant cystectomy with drainage of the abscess. She had a laparoscopic appendectomy as well. She had been doing extremely well since her surgery and had no pain or fever. She had intercourse for the first time in a couple of months last night and started having severe pain after that. She saw me in the office today and there was fluid in the pelvis at the time of an ultrasound and I suspected that she possibly had a ruptured ovarian cyst with blood. Right ovary also looked somewhat enlarged as well. Since she was so uncomfortable we elected to perform a diagnostic laparoscopy with possible right salpingo-oophorectomy as result of the enlargement of her right ovary and pain. Risks and benefits of surgery were discussed with the patient. Operative findings:: She had an enlarged right ovary that had a number of pockets of pus within it. The ovary itself was into the right pelvic sidewall. There was approximately 8 ounces of pus like serous fluid in the pelvis. The left ovary appeared normal. The left tube was somewhat edematous. The sigmoid colon was also adherent to the deep pelvis and to the right ovary. Her abdomen appeared normal. The base of the appendix where she had had her previous appendectomy was completely healed. Operative note:: She was taken to the operating room where general anesthesia was found to be adequate. She was prepped and draped in the normal sterile fashion in the nelson-lithotomy position. A weighted speculum was placed in the vagina and the anterior lip of the cervix was grasped with a tenaculum. I placed an acorn manipulator within the cervical canal. I then changed gloves and injected 10 cc of 5% ropivacaine around the umbilicus. I then made a small incision within the umbilicus and inserted a Veress needle into the abdominal cavity. The abdominal cavity was then insufflated with carbon dioxide gas to a pressure of 20 mmHg. We then inserted an 11 mm trocar under direct vision. Upon entering the pelvis it was noted that the deep pelvis was full of puslike serous fluid. I then injected through and through the pubic hairline, made a small incision and inserted a 5 mm trocar under direct vision. I identified the inferior epigastric arteries on the left side and there was a scar from her previous surgery. I was lateral to the inferior epigastric arteries and injected through and through with 0.5% ropivacaine. I made a small incision through the scar and inserted a 5 mm trocar under direct vision. I rinsed the pelvis and noted that there were some areas in the right ovary that were oozing a small amount of thick pus. I then elected to remove the right ovary and tube. The ovary are normal but the left tube was somewhat edematous. I elected to remove the left tube as well. Patient had previously expressed a desire for sterilization so I was not concerned about removing the left tube as well. The right ovary was then freed up using blunt dissection. It was dissected off the pelvic sidewall. It was also dissected away from the sigmoid colon. I then grasped the right round ligament and opened this up with harmonic scalpel. I t
--- NOTE | 2017-09-25 14:45 | P.OP_ITS ---
Date of procedure: 09/25/17 Pre-op Diagnosis:: Pelvic pain, possible ruptured ovarian cyst, history of tubo-ovarian abscess 2 months ago. Post-op Diagnosis:: Pelvic pain, tubo-ovarian abscess on the right side, pelvic peritoneal adhesions Procedure performed:: Laparoscopic right salpingo-oophorectomy, left salpingectomy, lysis of adhesions Surgeon:: Rajiv Brewer MD ENGRAVER TIRE MOLD:: Luis Almaguer Anesthesia: GETA Estimated blood loss (mL): 300 Clinical Note:: She is a 27-year-old lady who had a tubo-ovarian abscess as a result of appendicitis approximately 2 months ago. At that time her pelvis was full of pus and there was an abscess in the right ovary. The tip of her appendix was adherent to the right ovary and the diagnosis from pathology was acute appendicitis. At that time she had a right variant cystectomy with drainage of the abscess. She had a laparoscopic appendectomy as well. She had been doing extremely well since her surgery and had no pain or fever. She had intercourse for the first time in a couple of months last night and started having severe pain after that. She saw me in the office today and there was fluid in the pelvis at the time of an ultrasound and I suspected that she possibly had a ruptured ovarian cyst with blood. Right ovary also looked somewhat enlarged as well. Since she was so uncomfortable we elected to perform a diagnostic laparoscopy with possible right salpingo-oophorectomy as result of the enlargement of her right ovary and pain. Risks and benefits of surgery were discussed with the patient. Operative findings:: She had an enlarged right ovary that had a number of pockets of pus within it. The ovary itself was into the right pelvic sidewall. There was approximately 8 ounces of pus like serous fluid in the pelvis. The left ovary appeared normal. The left tube was somewhat edematous. The sigmoid colon was also adherent to the deep pelvis and to the right ovary. Her abdomen appeared normal. The base of the appendix where she had had her previous appendectomy was completely healed. Operative note:: She was taken to the operating room where general anesthesia was found to be adequate. She was prepped and draped in the normal sterile fashion in the nelson- lithotomy position. A weighted speculum was placed in the vagina and the anterior lip of the cervix was grasped with a tenaculum. I placed an acorn manipulator within the cervical canal. I then changed gloves and injected 10 cc of 5% ropivacaine around the umbilicus. I then made a small incision within the umbilicus and inserted a Veress needle into the abdominal cavity. The abdominal cavity was then insufflated with carbon dioxide gas to a pressure of 20 mmHg. We then inserted an 11 mm trocar under direct vision. Upon entering the pelvis it was noted that the deep pelvis was full of puslike serous fluid. I then injected through and through the pubic hairline, made a small incision and inserted a 5 mm trocar under direct vision. I identified the inferior epigastric arteries on the left side and there was a scar from her previous surgery. I was lateral to the inferior epigastric arteries and injected through and through with 0.5% ropivacaine. I made a small incision through the scar and inserted a 5 mm trocar under direct vision. I rinsed the pelvis and noted that there were some areas in the right ovary that were oozing a small amount of thick pus. I then elected to remove the right ovary and tube. The ovary are normal but the left tube was somewhat edematous. I elected to remove the left tube as well. Patient had previously expressed a desire for sterilization so I was not concerned about rem
--- NOTE | 2017-09-25 14:54 | P.PN_ITS ---
[facility] Anesthesia Record Part I Intake, IV Amount: 1,800 Estimated blood loss (mL): 300 Urine output (mL): 25 Blood Products used (#): none Blood Pressure: 118/64 SaO2: 100 Pulse Rate: 90 Respiratory Rate: 18 Temperature: 97.6 F Patient is:: Drowsy, Stable Stable to PACU at:: 13:51
--- NOTE | 2017-09-25 14:56 | P.PN_ITS ---
[facility] Anesthesia Record Part II Discharge Time: 14:21 Destination: Obstetric Gynecology Dept PACU nurse assessment reviewed?: Yes Patient Condition:: Good Anesthesia Complications:: None
--- NOTE | 2017-09-25 15:17 | HMH.HP ---
*Admission Date: 09/25/17 *Chief complaint: pelvic pain *History of present illness: She is a 27-year-old lady who complains of lower abdominal pain. She had a laparoscopic appendectomy and laparoscopic drainage of right ovarian abscess about 2 months ago. She had been doing well. She denied any pain. She had intercourse for the first time in 2 months last night and started having severe pain early after this. She was seen in my office today and was having excruciating pain with peritoneal signs. An ultrasound showed fluid in the pelvis possibly consistent with a hemorrhagic ovarian cyst. The right ovary was enlarged 8-9 cm. After having discussed the risks and benefits we elected to perform a laparoscopy with possible right salpingo-oophorectomy as result of the enlargement of the right ovary and her exquisite tenderness. [facility] History I have reviewed the patient's past medical history: Yes Medical History: Denies:: Cancer, Diabetes Mellitus Type 1, Diabetes Mellitus Type 2, MRSA, Seizures Other Medical History: Denies: Blood Transfusion Reaction Other Surgeries: Yes: Appendectomy, Other Amputation: No Fractures: No - *Social History Educational Level: Attended College Smoking Status: Never smoker Tobacco Type: cigarettes Alcohol Intake: never Substance Use Type: denies use Occupational Status: unemployed Housing: house Household Members: spouse, children - Psychiatric History Expresses thoughts of harming self/others: None Suicide Plan Description: No Plan *Family Hx:: No significant family history, Cancer Review of Systems - Review of Systems Review of systems:: pertinent systems reviewed and negative unless documented below Meds Home Medications Medication Instructions Recorded Confirmed Type levonorgestrel 20 mcg/24 hr (5 1 insert INTRAUTERI ONCE 09/25/17 09/25/17 History years) intrauterine device Allergies Allergy/AdvReac Type Severity Reaction Status Date / Time Penicillins Allergy Verified 09/25/17 10:24 Exam Vital signs and Labs for Last 24 Hours: Temp Pulse Resp BP Pulse Ox 97.6 F 90 18 118/64 98 09/25/17 14:54 09/25/17 14:54 09/25/17 14:54 09/25/17 14:54 09/25/17 11:39 Laboratory Results - last 24 hr 09/25/17 11:40: WBC 15.2 H, RBC 4.36, Hgb 13.0, Hct 41.8, MCV 95.9, MCH 30.0, MCHC 31.2 L, RDW 14.4, Plt Count 353, MPV 7.4, Neut % (Auto) 86.1 H, Lymph % (Auto) 10.7, [place] % (Auto) 2.8, Eos % (Auto) 0.2, Baso % (Auto) 0.2, Neut # (Auto) 13.1 H, Lymph # (Auto) 1.6, [place] # (Auto) 0.4, Eos # (Auto) 0.0, Baso # (Auto) 0.0, Total Counted 100, Neutrophils % (Manual) 87 H, Lymphocytes % (Manual) 7 L, Monocytes % (Manual) 6, Platelet Estimate Normal, RBC Morphology Normal 09/25/17 11:40: Sodium 138, Potassium 3.8, Chloride 105, Carbon Dioxide 25, Anion Gap 11.8, BUN 12, Creatinine 0.59, Estimated Creat Clear 129, Estimated GFR 121, Est GFR ( Amer) 146, Glucose 104 I & O for Last 24 hours: Intake & Output 09/23/17 09/24/17 09/25/17 09/26/17 11:59 11:59 11:59 11:59 Intake Total 1800 / 1800 Balance 1800 / 1800 Weight 128 lb - Constitutional moderate distress - *Routine HEENT Exam Head: Present: normocephalic - *Routine Abdominal Exam Present: tenderness, guarding, firm H&P: Result - Labs Labs: Short CBC 09/25/17 Range/Units 11:40 WBC 15.2 H (4.8-10.8) K/mm3 Hgb 13.0 (12.2-16.2) g/dL Hct 41.8 (37.0-47.0) % Plt Count 353 (142-424) K/mm3 BMP 09/25/17 11:40 Sodium 138 Potassium 3.8 Chloride 105 Carbon Dioxide 25 BUN 12 Creatinine 0.59 Glucose 104 Assessment and Plan (1) Pelvic pain Current visit: No Status: Acute Category: Medical Code(s): R10.2 - Pelvic and perineal pain (2) Tubo-ovarian abscess Current visit: No Status: Acute Category: Medical Code(s): N70.93 - Salpingitis and oophoritis, unspecified - Assessment and plan all Dx Assessment and Plan for all prob
--- NOTE | 2017-09-25 15:21 | P.HP_ITS ---
*Admission Date: 09/25/17 *Chief complaint: pelvic pain *History of present illness: She is a 27-year-old lady who complains of lower abdominal pain. She had a laparoscopic appendectomy and laparoscopic drainage of right ovarian abscess about 2 months ago. She had been doing well. She denied any pain. She had intercourse for the first time in 2 months last night and started having severe pain early after this. She was seen in my office today and was having excruciating pain with peritoneal signs. An ultrasound showed fluid in the pelvis possibly consistent with a hemorrhagic ovarian cyst. The right ovary was enlarged 8-9 cm. After having discussed the risks and benefits we elected to perform a laparoscopy with possible right salpingo-oophorectomy as result of the enlargement of the right ovary and her exquisite tenderness. [facility] History I have reviewed the patient's past medical history: Yes Medical History: Denies:: Cancer, Diabetes Mellitus Type 1, Diabetes Mellitus Type 2, MRSA, Seizures Other Medical History: Denies: Blood Transfusion Reaction Other Surgeries: Yes: Appendectomy, Other Amputation: No Fractures: No - *Social History Educational Level: Attended College Smoking Status: Never smoker Tobacco Type: cigarettes Alcohol Intake: never Substance Use Type: denies use Occupational Status: unemployed Housing: house Household Members: spouse, children - Psychiatric History Expresses thoughts of harming self/others: None Suicide Plan Description: No Plan *Family Hx:: No significant family history, Cancer Review of Systems - Review of Systems Review of systems:: pertinent systems reviewed and negative unless documented below Meds Home Medications Medication Instructions Recorded Confirmed Type levonorgestrel 20 mcg/24 hr (5 1 insert INTRAUTERI ONCE 09/25/17 09/25/17 History years) intrauterine device Allergies Allergy/AdvReac Type Severity Reaction Status Date / Time Penicillins Allergy Verified 09/25/17 10:24 Exam Vital signs and Labs for Last 24 Hours: Temp Pulse Resp BP Pulse Ox 97.6 F 90 18 118/64 98 09/25/17 14:54 09/25/17 14:54 09/25/17 14:54 09/25/17 14:54 09/25/17 11:39 Laboratory Results - last 24 hr 09/25/17 11:40: WBC 15.2 H, RBC 4.36, Hgb 13.0, Hct 41.8, MCV 95.9, MCH 30.0, MCHC 31.2 L, RDW 14.4, Plt Count 353, MPV 7.4, Neut % (Auto) 86.1 H, Lymph % ( Auto) 10.7, [place] % (Auto) 2.8, Eos % (Auto) 0.2, Baso % (Auto) 0.2, Neut # (Auto ) 13.1 H, Lymph # (Auto) 1.6, [place] # (Auto) 0.4, Eos # (Auto) 0.0, Baso # (Auto ) 0.0, Total Counted 100, Neutrophils % (Manual) 87 H, Lymphocytes % (Manual) 7 L, Monocytes % (Manual) 6, Platelet Estimate Normal, RBC Morphology Normal 09/25/17 11:40: Sodium 138, Potassium 3.8, Chloride 105, Carbon Dioxide 25, Anion Gap 11.8, BUN 12, Creatinine 0.59, Estimated Creat Clear 129, Estimated GFR 121, Est GFR ( Amer) 146, Glucose 104 I & O for Last 24 hours: Intake & Output 09/23/17 09/24/17 09/25/17 09/26/17 11:59 11:59 11:59 11:59 Intake Total 1800 / 1800 Balance 1800 / 1800 Weight 128 lb - Constitutional moderate distress - *Routine HEENT Exam Head: Present: normocephalic - *Routine Abdominal Exam Present: tenderness, guarding, firm H&P: Result - Labs Labs: Short CBC 09/25/17 Range/Units 11:40 WBC 15.2 H (4
--- NOTE | 2017-09-25 16:35 | PC.NURSE ---
PT OOB TO BR WITH 1 ASSIST. STATES STARTING TO FEEL MUCH BETTER. DRINKING CLEAR SODA AT THIS TIME - DENIES N/V.
--- NOTE | 2017-09-25 17:25 | PC.NURSE ---
PT SITTING UP IN BED SIPPING ON SODA. DENIES ANY C/O N/V. STATES PAIN WELL CONTROLLED AT THIS TIME.
--- NOTE | 2017-09-25 18:25 | PC.NURSE ---
PT SITTING UP IN BED, CONTINUING TO TOLERATE CLEARS WITHOUT C/O N/V. DENIES ANY COMPLAINTS AT THIS TIME.
--- NOTE | 2017-09-25 19:15 | PC.NURSE ---
REPORT GIVEN TO SACHA HART RN
--- NOTE | 2017-09-25 19:21 | PC.NURSE ---
CHARTING REVIEWED AND AGREED WITH COMPLETED BY Seb ESTEVES RN
[2017-09-26 05:45] VITALS: BP 120/83; PULSE 70; RESP 17; TEMP 36.6
--- NOTE | 2017-09-26 05:47 | PC.NURSE ---
Pt has rested very well throughout the night. +bs x 4 quads. Voiding without difficulty. Lungs clear bilat / auscultated. Tolerating PO liquids. VS wnl. Very scant vaginal bleeding. 3 Lap sites to abdomen CDI, old light shadowing noted. Abdomen appears puffy or slightly distended this a.m. but no increase in size from last night. Abdomen soft to palpate, slightly tender r/t insicions, but otherwise remarkable. Pt able to ambulate in room w/o assistance. Denies any issues or problems with voiding. Sig other at bs attentive to pt's needs... saline lock remains in RT FA, Pt will have CBC and BMP drawn this a.m.
--- NOTE | 2017-09-26 07:15 | PC.NURSE ---
RECEIVED REPORT FROM SACHA HART RN
[2017-09-26 07:45] VITALS: BP 85/50; PULSE 73; RESP 16; TEMP 36.7; O2SAT 100
--- NOTE | 2017-09-26 07:45 | PC.NURSE ---
PT HAS 3 ABD LAP SITES WITH TELFA AND TEGADERM INTACT. SMALL AMOUNT OF OLD SERO-SANG DRAINAGE NOTED.
[2017-09-26 07:46] LABS: Blood Urea Nitrogen 6 mg/dL (7-18); Carbon Dioxide 28 mmol/L (21.0-32.0); Chloride 107 mmol/L (98-107); Creatinine Clearance Estimated 131 mL/min (0-300); Creatinine,Serum 0.58 mg/dL (0.55-1.02); Estimated Glomerular Filt Rate 123 ml/min (>60); GFR (African American) 149 ML/MIN (>60); Glucose 98 mg/dL (74-106); Sodium 142 mmol/L (136-145)
[2017-09-26 08:05] LABS: Basophils % 0.2 % (0.1-2.0); Eosinophils # 0.1 K/mm3 (0.0-0.4); Eosinophils % 1.4 % (0.1-12.0); Hematocrit 32.1 % (37.0-47.0); Lymphocytes # 1.5 K/mm3 (0.7-4.5); Lymphocytes % 15.3 K/mm3 (10-50); Mean Corpuscular HGB Conc 30.9 g/dL (31.8-35.4); Mean Corpuscular Hemoglobin 30.3 pg (27.0-31.2); Mean Corpuscular Volume 98.1 fl (81-99); Mean Platelet Volume 7.5 fl (7.4-10.4); Monocytes # 0.4 K/mm3 (0.1-1.0); Monocytes % 4.4 % (1.7-9.3); Neutrophils # 7.9 K/mm3 (1.8-7.8); Neutrophils % 78.9 % (37.0-80.0); Platelet Count 235 K/mm3 (142-424); Red Blood Count 3.27 M/mm3 (4.20-5.40); Red Cell Distribution Width 14.3 % (11.5-17.5)
[2017-09-26 08:40] LABS: Hemoglobin 9.9 g/dL (12.2-16.2)
--- NOTE | 2017-09-26 08:40 | PC.NURSE ---
PT SITTING UP IN BED TEXTING ON CELL PHONE. NO NEEDS VOICED. CALL LIGHT IN REACH. PT DENIES ANY PAIN.
--- NOTE | 2017-09-26 09:22 | PC.NURSE ---
DR TURNER HERE FOR MORNING ROUNDS. REPORT GIVEN. PT BP A LITTLE LOW 85/50. PT WANTING SOMETHING TO EAT. ORDERS RECEIVED FOR REGULAR DIET. R/V
--- NOTE | 2017-09-26 09:39 | HMH.DCSUM ---
General - General Admission date: 09/25/17 Discharge date: 09/26/17 HPI HPI: She is a 27-year-old lady who complains of lower abdominal pain. She had a laparoscopic appendectomy and laparoscopic drainage of right ovarian abscess about 2 months ago. She had been doing well. She denied any pain. She had intercourse for the first time in 2 months last night and started having severe pain early after this. She was seen in my office today and was having excruciating pain with peritoneal signs. An ultrasound showed fluid in the pelvis possibly consistent with a hemorrhagic ovarian cyst. The right ovary was enlarged 8-9 cm. After having discussed the risks and benefits we elected to perform a laparoscopy with possible right salpingo-oophorectomy as result of the enlargement of the right ovary and her exquisite tenderness. Hospital Course Hospital Course: On September 25, 2017 she underwent a diagnostic laparoscopy with removal of her right ovary and tube. We also removed the left tube as well. She had lysis of adhesions as result of her previous abscess. The right ovary was still full of thick pockets of pus. She has done well postoperatively and has remained afebrile throughout her hospitalization. She is eating and drinking and ambulating. Her pain is much improved. We will discharge her home to follow-up with me in approximately 2 weeks time. We will continue with oral antibiotics for the next 5 days. She will take clindamycin 300 mg 3 times a day as well as Levaquin 500 mg daily. Objective Vital signs: Temp Pulse Resp BP Pulse Ox 98.0 F 73 16 85/50 100 09/26/17 07:45 09/26/17 07:45 09/26/17 07:45 09/26/17 07:45 09/26/17 07:45 no acute distress Results Labs on day of discharge: Labs from last 24 hours 09/26/17 09/26/17 09/25/17 07:30 07:30 11:40 WBC 10.0 D RBC 3.27 L Hgb 9.9 L D Hct 32.1 L MCV 98.1 MCH 30.3 MCHC 30.9 L RDW 14.3 Plt Count 235 D MPV 7.5 Neut % (Auto) 78.9 Lymph % (Auto) 15.3 [place] % (Auto) 4.4 Eos % (Auto) 1.4 Baso % (Auto) 0.2 Neut # (Auto) 7.9 H Lymph # (Auto) 1.5 [place] # (Auto) 0.4 Eos # (Auto) 0.1 Baso # (Auto) 0.0 Total Counted Neutrophils % (Manual) Lymphocytes % (Manual) Monocytes % (Manual) Platelet Estimate RBC Morphology Sodium 142 138 Potassium 4.0 3.8 Chloride 107 105 Carbon Dioxide 28 25 Anion Gap 11.0 11.8 BUN 6 L D 12 Creatinine 0.58 0.59 Estimated Creat Clear 131 129 Estimated GFR 123 121 Est GFR ( Amer) 149 146 Glucose 98 104 09/25/17 11:40 WBC 15.2 H RBC 4.36 Hgb 13.0 Hct 41.8 MCV 95.9 MCH 30.0 MCHC 31.2 L RDW 14.4 Plt Count 353 MPV 7.4 Neut % (Auto) 86.1 H Lymph % (Auto) 10.7 [place] % (Auto) 2.8 Eos % (Auto) 0.2 Baso % (Auto) 0.2 Neut # (Auto) 13.1 H Lymph # (Auto) 1.6 [place] # (Auto) 0.4 Eos # (Auto) 0.0 Baso # (Auto) 0.0 Total Counted 100 Neutrophils % (Manual) 87 H Lymphocytes % (Manual) 7 L Monocytes % (Manual) 6 Platelet Estimate Normal RBC Morphology Normal Sodium Potassium Chloride Carbon Dioxide Anion Gap BUN Creatinine Estimated Creat Clear Estimated GFR Est GFR ( Amer) Glucose DS: Diagnosis - Discharge Diagnosis (1) Pelvic pain Status: Acute (2) Tubo-ovarian abscess Status: Acute Discharge Plan - Patient Discharge Instructions ACTIVITY: No heavy lifting DIET: continue same diet - Follow up Plan Disposition: Home, Self-Retirement Medications: Home Medications Medication Instructions Recorded Confirmed Type levonorgestrel 20 mcg/24 hr (5 1 insert INTRAUTERI ONCE 09/25/17 09/25/17 History years) intrauterine device Prescriptions/Medication Reconciliation: New Clindamycin HCl [Clindamycin 300mg Cap] 300 mg PO TID #15 capsule levoFLOXacin [Levaquin 500mg tab] 500 mg PO DAILY #5 tab
--- NOTE | 2017-09-26 09:47 | P.DS_ITS ---
General - General Admission date: 09/25/17 Discharge date: 09/26/17 HPI HPI: She is a 27-year-old lady who complains of lower abdominal pain. She had a laparoscopic appendectomy and laparoscopic drainage of right ovarian abscess about 2 months ago. She had been doing well. She denied any pain. She had intercourse for the first time in 2 months last night and started having severe pain early after this. She was seen in my office today and was having excruciating pain with peritoneal signs. An ultrasound showed fluid in the pelvis possibly consistent with a hemorrhagic ovarian cyst. The right ovary was enlarged 8-9 cm. After having discussed the risks and benefits we elected to perform a laparoscopy with possible right salpingo-oophorectomy as result of the enlargement of the right ovary and her exquisite tenderness. Hospital Course Hospital Course: On September 25, 2017 she underwent a diagnostic laparoscopy with removal of her right ovary and tube. We also removed the left tube as well. She had lysis of adhesions as result of her previous abscess. The right ovary was still full of thick pockets of pus. She has done well postoperatively and has remained afebrile throughout her hospitalization. She is eating and drinking and ambulating. Her pain is much improved. We will discharge her home to follow-up with me in approximately 2 weeks time. We will continue with oral antibiotics for the next 5 days. She will take clindamycin 300 mg 3 times a day as well as Levaquin 500 mg daily. Objective Vital signs: Temp Pulse Resp BP Pulse Ox 98.0 F 73 16 85/50 100 09/26/17 07:45 09/26/17 07:45 09/26/17 07:45 09/26/17 07:45 09/26/17 07:45 no acute distress Results Labs on day of discharge: Labs from last 24 hours 09/26/17 09/26/17 09/25/17 07:30 07:30 11:40 WBC 10.0 D RBC 3.27 L Hgb 9.9 L D Hct 32.1 L MCV 98.1 MCH 30.3 MCHC 30.9 L RDW 14.3 Plt Count 235 D MPV 7.5 Neut % (Auto) 78.9 Lymph % (Auto) 15.3 [place] % (Auto) 4.4 Eos % (Auto) 1.4 Baso % (Auto) 0.2 Neut # (Auto) 7.9 H Lymph # (Auto) 1.5 [place] # (Auto) 0.4 Eos # (Auto) 0.1 Baso # (Auto) 0.0 Total Counted Neutrophils % (Manual) Lymphocytes % (Manual) Monocytes % (Manual) Platelet Estimate RBC Morphology Sodium 142 138 Potassium 4.0 3.8 Chloride 107 105 Carbon Dioxide 28 25 Anion Gap 11.0 11.8 BUN 6 L D 12 Creatinine 0.58 0.59 Estimated Creat Clear 131 129 Estimated GFR 123 121 Est GFR ( Amer) 149 146 Glucose 98 104 09/25/17 11:40 WBC 15.2 H RBC 4.36 Hgb 13.0 Hct 41.8 MCV 95.9 MCH 30.0 MCHC 31.2 L RDW 14.4 Plt Count 353 MPV 7.4 Neut % (Auto) 86.1 H Lymph % (Auto) 10.7 [place] % (Auto) 2.8 Eos % (Auto) 0.2 Baso % (Auto) 0.2 Neut # (Auto) 13.1 H Lymph # (Auto) 1.6 [place] # (Auto) 0.4 Eos # (Auto) 0.0 Baso # (Auto) 0.0 Total Counted 100 Neutrophils % (Manual) 87 H
[2017-09-26 09:50] VITALS: BP 100/71; PULSE 74; RESP 16
[2017-09-26 09:55] VITALS: RESP 16
--- NOTE | 2017-09-26 10:25 | PC.NURSE ---
PT SITTING UP IN BED. PT REPORTS PAIN MUCH BETTER. DISCHARGE TEACHING COMPLETED AT THIS TIME. SURGICAL SITE INFECTION TEACHING GONE OVER WITH PT. PT V/U WOUND CARE COMPLETED, PT HAS 3 LAP SITES WITH TELFA AND TEGADERM INTACT. OLD DRESSINGS REMOVED. INCISIONS APPROXIMATED WITH STERI-STRIPS IN PLACE. NO DRAINAGE NOTED TO ANY OF THE 3 SITES. ALL 3 INCISIONS CLEANED WITH HEBICLENS AND LARGE BANDAIDS APPLIED. PT TOLERATED WELL.
== END 2017-09-26 10:45 | disposition home or self-care (01) | DRG 743 ==
LOC: OB 15:31
PROVIDERS: Admitting Provider Nurse Practitioner Obstetrics & Gynecology; PCP Pediatrics; Visit Provider Nurse Practitioner Obstetrics & Gynecology
PROC: 0UN74ZZ Release Bilateral Fallopian Tubes, Percutaneous Endoscopic Approach (ICD-10-PCS; CPT 49320; principal; 2017-09-25 12:00)
DX: N70.93 Salpingitis and oophoritis, unspecified (principal); R10.2 Pelvic and perineal pain; N99.4 Postprocedural pelvic peritoneal adhesions; N73.6 Female pelvic peritoneal adhesions (postinfective)
CPT/HCPCS: 58660; 58661; 80048; 85007; 85025; 87070; 87205; 96374; J0131; J1956; J2405; J2710

== ENCOUNTER → 2017-10-07 11:53 | Outpatient (CLI) | payer OTHER, SELFPAY ==
[2017-10-07 12:36] LABS: Basophils % 0.3 % (0.1-2.0); Eosinophils # 0.1 K/mm3 (0.0-0.4); Eosinophils % 1.6 % (0.1-12.0); Hematocrit 41.2 % (37.0-47.0); Hemoglobin 13.4 g/dL (12.2-16.2); Lymphocytes # 2.7 K/mm3 (0.7-4.5); Lymphocytes % 34.8 K/mm3 (10-50); Mean Corpuscular HGB Conc 32.4 g/dL (31.8-35.4); Mean Corpuscular Hemoglobin 30.3 pg (27.0-31.2); Mean Corpuscular Volume 93.6 fl (81-99); Mean Platelet Volume 7.1 fl (7.4-10.4); Monocytes # 0.4 K/mm3 (0.1-1.0); Monocytes % 4.6 % (1.7-9.3); Neutrophils # 4.5 K/mm3 (1.8-7.8); Neutrophils % 58.6 % (37.0-80.0); Platelet Count 593 K/mm3 (142-424); Red Blood Count 4.41 M/mm3 (4.20-5.40); Red Cell Distribution Width 14.1 % (11.5-17.5); White Blood Count 7.7 K/mm3 (4.8-10.8)
== END ==
PROVIDERS: PCP Pediatrics; Visit Provider Nurse Practitioner Obstetrics & Gynecology
DX: Z48.89 Encounter for other specified surgical aftercare (principal)
CPT/HCPCS: 36415; 85025

== ENCOUNTER 2018-03-22 16:14 | Observation (INO) ==
[2018-03-22 17:07] LABS: Microscopic, Urine URINE MICROSCOPIC (MICROSCOPIC)
--- NOTE | 2018-03-22 17:07 | History & Physical Report ---
*Admission Date: 03/22/18 *Chief complaint: Severe abdominal pain *History of present illness: She is a 28-year-old lady who has had a previous history of an abdominal abscess with an abscess from the appendix attaching itself to the right ovary. She had an appendectomy right salpingo-oophorectomy. She has had some pain a couple weeks ago and had what appeared to be a hemorrhagic left ovarian cyst. Today she comes in with severe lower abdominal pain and peritoneal signs. She is tender all over her abdomen. She has some mild anorexia. She says she only had a small amount to eat earlier on today. [facility] History I have reviewed the patient's past medical history: Yes Medical History: Denies:: Cancer, Diabetes Mellitus Type 1, Diabetes Mellitus Type 2, MRSA, Seizures Other Medical History: Denies: Blood Transfusion Reaction Other Surgeries: Yes: No Previous Surgery, Appendectomy, Hysterectomy-Partial, Tubal Ligation, Other Amputation: No Fractures: No - *Social History Educational Level: Completed High School Smoking Status: Current every day smoker Tobacco Type: cigarettes Alcohol Intake: never Substance Use Type: denies use Occupational Status: unemployed Housing: house Household Members: spouse, children - Psychiatric History Expresses thoughts of harming self/others: None Suicide Plan Description: No Plan *Family Hx:: No significant family history, Cancer Review of Systems - Review of Systems Review of systems:: pertinent systems reviewed and negative unless documented below - *Gastrointestinal Reports abdominal pain, Reports bloating Meds Home Medications Medication Instructions Recorded Confirmed Type levonorgestrel 20 mcg/24 hr (5 1 insert INTRAUTERI ONCE 09/25/17 09/25/17 History years) intrauterine device Allergies Allergy/AdvReac Type Severity Reaction Status Date / Time Penicillins Allergy Verified 03/22/18 15:47 Exam I & O for Last 24 hours: Intake & Output 03/20/18 03/21/18 03/22/18 03/23/18 11:59 11:59 11:59 11:59 Weight 130 lb - Constitutional moderate distress - *Routine HEENT Exam Head: Present: normocephalic Eye: Present: EOMI, PERRL ENT: Present: mucous membranes moist - *Routine Neck Exam Present: supple, full ROM - *Routine Respiratory Exam Absent: accessory muscle use (good air entry bilaterally), wheezes, crackles - *Routine Cardiovascular Exam Present: RRR. Absent: murmur - *Routine Abdominal Exam Present: tenderness, distended, rebound, guarding. Absent: mass - *Routine Rectal Exam Patient deferred: visual exam, digital exam - *Routine Exam Patient deferred: external exam, groin exam, perineal exam - *Routine Extremities Exam Present: full ROM. Absent: cyanosis, edema, calf tenderness - *Routine Skin Exam Present: intact (good color) - *Routine Neurological Exam Present: alert, oriented X3 - Routine Psychiatric Exam Present: normal affect Assessment and Plan (1) Abdominal pain Current visit: Yes Status: Acute Category: Medical Code(s): R10.9 - Unspecified abdominal pain (2) Pelvic pain Current visit: No Status: Acute Category: Medical Code(s): R10.2 - Pelvic and perineal pain - Assessment and plan all Dx Assessment and Plan for all problems:: We will admit her for pain relief. We will get a CT scan with and without contrast. I did an ultrasound in the office and I could not the ultrasound. There was no free fluid. The IUD seem to be in the correct position. We will get a general surgery consult after her CT scan.
[2018-03-22 17:10] LABS: Appearance,Urine CLEAR (Clear); Bilirubin,Urine Negative (Negative); Blood, Urine Negative (Negative); Color,Urine YELLOW (Yellow); Glucose,Urine (UA) Negative (Negative); Ketones,Urine Negative (Negative); Leukocyte Esterase,Urine Negative (Negative); Protein,Urine Negative (Negative); Urobilinogen,Urine 0.2 EU/dl (0.2)
[2018-03-22 17:11] LABS: Basophils % 0.1 % (0.1-2.0); Eosinophils # 0.1 K/mm3 (0.0-0.4); Eosinophils % 0.4 % (0.1-12.0); Hemoglobin 13.8 g/dL (12.2-16.2); Lymphocytes # 1.5 K/mm3 (0.7-4.5); Lymphocytes % 11.3 K/mm3 (10-50); Mean Corpuscular HGB Conc 32.2 g/dL (31.8-35.4); Mean Corpuscular Volume 96.2 fl (81-99); Mean Platelet Volume 7.4 fl (7.4-10.4); Monocytes # 0.4 K/mm3 (0.1-1.0); Neutrophils # 10.9 K/mm3 (1.8-7.8); Neutrophils % 85.2 % (37.0-80.0); Platelet Count 247 K/mm3 (142-424); Red Blood Count 4.47 M/mm3 (4.20-5.40); Red Cell Distribution Width 12.6 % (11.5-17.5); White Blood Count 12.8 K/mm3 (4.8-10.8)
[2018-03-22 17:26] LABS: Albumin Level 3.9 gm/dL (3.4-5.0); Anion Gap 9.6 mEq/L (5-15); Bilirubin,Total 0.5 mg/dL (0.2-1.0); Calcium 8.7 mg/dL (8.5-10.1); Globulin 4.1 gm/dl (1.3-3.2); Potassium 3.6 mmoL/L (3.5-5.1)
[2018-03-22 17:30] LABS: Bacteria,Urine 3+ /lpf; WBC,Urine Occasional #/hpf (0-3)
[2018-03-22 17:32] LABS: Lymphocytes % 8 % (10-50); Monocytes % 5 % (2-9); Neutrophils % 86 % (42-76); RBC Morphology Normal; Total Cells Counted 100
--- NOTE | 2018-03-22 19:53 | Consult Report ---
*Admission Date: 03/22/18 *Chief complaint: ABDOMINAL PAIN *History of present illness: Patient is a 28-year-old white female who was admitted by Dr. Rajiv Rutherford for abdominal pain and surgical consultation was requested. She has a history of undergoing laparoscopy on 08/04/17 for presumed right pelvic abscess and was found to have appendix with the tip adherent to abscess. Dr. Brewer performed appendectomy and washout of the abscess. She was found to have acute suppurative appendicitis by pathology. She states that she did have some ongoing issues with abdominal pain and on 09/25/17 she underwent laparoscopy at which time she underwent laparoscopic right oophorectomy and left salpingectomy. Right tube and ovary revealed multilocular ovarian abscess and left tube revealed mild acute salpingitis. She states that she has had some degree of abdominal pain for a couple of weeks. However it has been more pronounced the past couple of days. It became quite severe today. She was seen and evaluated by Dr. Brewer in the outpatient setting and admitted for inpatient management. Patient states that she has had some nausea but no vomiting. She describes the pain as her abdomen is "on fire". She has some sharp stabbing pains. She is unable to localize any specific focal location. She was admitted for inpatient management and surgical consultation. Review of Systems - Constitutional Reports anorexia - Eyes Denies change in vision - ENT Denies abnormal hearing - *Cardiovascular Denies chest pain - *Respiratory Denies shortness of breath - *Gastrointestinal Reports abdominal pain, Reports bloating, Denies change in bowel habits - *Musculoskeletal Denies abnormal walking - *Neurologic Denies dizziness [facility] History I have reviewed the patient's past medical history: Yes Medical History: Denies:: Cancer, Diabetes Mellitus Type 1, Diabetes Mellitus Type 2, MRSA, Seizures Other Medical History: Denies: Blood Transfusion Reaction Other Surgeries: Yes: No Previous Surgery, Appendectomy, Hysterectomy-Partial, Tubal Ligation, Other Amputation: No Fractures: No - *Social History Educational Level: Completed High School Smoking Status: Current every day smoker Tobacco Type: cigarettes Alcohol Intake: never Substance Use Type: denies use Occupational Status: unemployed Housing: house Household Members: spouse, children - Psychiatric History Expresses thoughts of harming self/others: None Suicide Plan Description: No Plan *Family Hx:: No significant family history, Cancer Meds Home Medications Medication Instructions Recorded Confirmed Type levonorgestrel 20 mcg/24 hr (5 1 insert INTRAUTERI ONCE 09/25/17 03/22/18 History years) intrauterine device Allergies Allergy/AdvReac Type Severity Reaction Status Date / Time Penicillins Allergy Verified 03/22/18 15:47 Exam Vital signs and Labs for Last 24 Hours: Laboratory Results - last 24 hr 03/22/18 16:55: Urine Color Yellow, Urine Appearance Clear, Urine pH 6.0, Ur Specific [place] 1.010, Urine Protein Negative, Urine Glucose (UA) Negative, Urine Ketones Negative, Urine Blood Negative, Urine Nitrate Negative, Urine Bilirubin Negative, Urine Urobilinogen 0.2, Ur Leukocyte Esterase Negative, Urine WBC Occasional, Ur Squamous Epith Cells 3-5, Urine Bacteria 3+ 03/22/18 16:55: WBC 12.8 H, RBC 4.47, Hgb 13.8, Hct 43.0, MCV 96.2, MCH 31.0, MCHC 32.2, RDW 12.6, Plt Count 247, MPV 7.4, Neut % (Auto) 85.2 H, Lymph % (Auto) 11.3, [place] % (Auto) 3.0, Eos % (Auto) 0.4, Baso % (Auto) 0.1, Neut # (Auto) 10.9 H, Lymph # (Auto) 1.5, [place] # (Auto) 0.4, Eos # (Auto) 0.1, Baso # (Auto) 0.0, Total Counted 100, Neutrophils % (Manual) 86 H, Lymphocytes % (Manual) 8 L, Atypical Lymphs % 1.0, Monocytes % (Manual) 5, Platelet Estimate Normal, RBC Morphology Normal 03/22/18 16:55: Sodium 141, Potassium 3.6, Chloride 105, Carbon Dioxide 30, Anion Gap 9.6, BUN 7, Creatinine 0.77, Estimated Creat Clear 99, Estimated GFR 88, Est GFR ( Amer) 107, Glucose 86, Calcium 8.7, Total Bilirubin 0.5, AST 11 L, ALT 17, Alkaline Phosphatase 64, Total Protein 8.0, Albumin 3.9, Globulin 4.1 H, Albumin/Globulin Ratio 1.0 L I & O for Last 24 hours: Intake & Output 03/20/18 03/21/18 03/22/18 03/23/18 11:59 11:59 11:59 11:59 Weight 130 lb - Constitutional mild distress Comments: Uncomfortable - *Routine HEENT Exam Eye: Absent: scleral injection - *Routine Respiratory Exam Present: CTA bilaterally - *Routine Cardiovascular Exam Present: RRR - *Routine Abdominal Exam Present: soft, tenderness, rebound, guarding Comments: Patient has some degree of diffuse tenderness with some guarding. This seems to be most pronounced in the right upper quadrant. Results - Labs 03/22/18 16:55 03/22/18 16:55 Laboratory Results - last 24 hr 03/22/18 16:55: Urine Color Yellow, Urine Appearance Clear, Urine pH 6.0, Ur Specific [place] 1.010, Urine Protein Negative, Urine Glucose (UA) Negative, Urine Ketones Negative, Urine Blood Negative, Urine Nitrate Negative, Urine Bilirubin Negative, Urine Urobilinogen 0.2, Ur Leukocyte Esterase Negative, Urine WBC Occasional, Ur Squamous Epith Cells 3-5, Urine Bacteria 3+ 03/22/18 16:55: WBC 12.8 H, RBC 4.47, Hgb 13.8, Hct 43.0, MCV 96.2, MCH 31.0, MCHC 32.2, RDW 12.6, Plt Count 247, MPV 7.4, Neut % (Auto) 85.2 H, Lymph % (Auto) 11.3, [place] % (Auto) 3.0, Eos % (Auto) 0.4, Baso % (Auto) 0.1, Neut # (Auto) 10.9 H, Lymph # (Auto) 1.5, [place] # (Auto) 0.4, Eos # (Auto) 0.1, Baso # (Auto) 0.0, Total Counted 100, Neutrophils % (Manual) 86 H, Lymphocytes % (Manual) 8 L, Atypical Lymphs % 1.0, Monocytes % (Manual) 5, Platelet Estimate Normal, RBC Morphology Normal 03/22/18 16:55: Sodium 141, Potassium 3.6, Chloride 105, Carbon Dioxide 30, Anion Gap 9.6, BUN 7, Creatinine 0.77, Estimated Creat Clear 99, Estimated GFR 88, Est GFR ( Amer) 107, Glucose 86, Calcium 8.7, Total Bilirubin 0.5, AST 11 L, ALT 17, Alkaline Phosphatase 64, Total Protein 8.0, Albumin 3.9, Globulin 4.1 H, Albumin/Globulin Ratio 1.0 L Assessment and Plan (1) Abdominal pain Current visit: Yes Status: Acute Category: Medical Code(s): R10.9 - Unspecified abdominal pain (2) Pelvic pain Current visit: No Status: Acute Category: Medical Code(s): R10.2 - Pelvic and perineal pain - Assessment and plan all Dx Assessment and Plan for all problems:: The exact etiology of the patient's symptoms is somewhat unclear at this time. However, it is concerning given her tenderness on examination and mild leukocytosis. She has undergone CT scan and report is pending at this time. I am awaiting the reading of this. I will plan to obtain pancreatic enzymes and lactate level as well. She could require operative intervention.
--- NOTE | 2018-03-23 06:57 | Progress Note ---
Subjective Narrative: Patient still complains of abdominal soreness and tenderness. She localizes this mostly to the epigastric area. Exam Vital signs and Labs for Last 24 Hours: Temp Pulse Resp BP Pulse Ox 97.7 F 56 L 16 90/58 97 03/23/18 04:00 03/23/18 04:00 03/23/18 04:00 03/23/18 04:00 03/23/18 04:00 Laboratory Results - last 24 hr 03/22/18 16:55: Urine Color Yellow, Urine Appearance Clear, Urine pH 6.0, Ur Specific [place] 1.010, Urine Protein Negative, Urine Glucose (UA) Negative, Urine Ketones Negative, Urine Blood Negative, Urine Nitrate Negative, Urine Bilirubin Negative, Urine Urobilinogen 0.2, Ur Leukocyte Esterase Negative, Urine WBC Occasional, Ur Squamous Epith Cells 3-5, Urine Bacteria 3+ 03/22/18 16:55: WBC 12.8 H, RBC 4.47, Hgb 13.8, Hct 43.0, MCV 96.2, MCH 31.0, MCHC 32.2, RDW 12.6, Plt Count 247, MPV 7.4, Neut % (Auto) 85.2 H, Lymph % (Auto) 11.3, [place] % (Auto) 3.0, Eos % (Auto) 0.4, Baso % (Auto) 0.1, Neut # (Auto) 10.9 H, Lymph # (Auto) 1.5, [place] # (Auto) 0.4, Eos # (Auto) 0.1, Baso # (Auto) 0.0, Total Counted 100, Neutrophils % (Manual) 86 H, Lymphocytes % (Manual) 8 L, Atypical Lymphs % 1.0, Monocytes % (Manual) 5, Platelet Estimate Normal, RBC Morphology Normal 03/22/18 16:55: Sodium 141, Potassium 3.6, Chloride 105, Carbon Dioxide 30, Anion Gap 9.6, BUN 7, Creatinine 0.77, Estimated Creat Clear 99, Estimated GFR 88, Est GFR ( Amer) 107, Glucose 86, Calcium 8.7, Total Bilirubin 0.5, AST 11 L, ALT 17, Alkaline Phosphatase 64, Total Protein 8.0, Albumin 3.9, Globulin 4.1 H, Albumin/Globulin Ratio 1.0 L 03/22/18 19:37: Amylase 45 03/22/18 19:37: Lactate 0.5 03/22/18 19:37: Lipase 82 I & O for Last 24 hours: Intake & Output 03/20/18 03/21/18 03/22/18 03/23/18 11:59 11:59 11:59 11:59 Intake Total 120 / 120 Balance 120 / 120 Weight 130 lb - Constitutional no acute distress - *Routine Abdominal Exam Present: soft, tenderness Comments: She has tenderness in the midepigastric area with voluntary guarding. She has moderate tenderness bilateral upper quadrants. Abdomen is soft. Progress Note: A&P (1) Abdominal pain Status: Acute Current Visit: Yes (2) Pelvic pain Status: Acute Current Visit: No Assessment and Plan for All Diagnoses:: Unclear as to the etiology of her symptoms. CT scan reveals findings suggestive of acute pyelonephritis. I will review the CT scan images with radiology personally today.
--- NOTE | 2018-03-23 07:22 | Pharmacy Consult Notes ---
[facility] Pharmacy VTE Monitoring - Patient Demographics Admission date: 03/23/18 Report Date: 03/23/18 Time: 07:22 Allergies/Adverse Reactions: Patient Allergies Penicillins Allergy (Verified 03/22/18 15:47) Height: 1.63 m Weight: 58.967 kg Patient Problems: Current Active Problems (This Medical Record has been edited. Action required.) Abdominal pain (Acute) - VTE Risk Labs: VTE Related Lab Results Hgb 13.8 g/dL (12.2-16.2) 03/22/18 16:55 Hct 43.0 % (37.0-47.0) 03/22/18 16:55 Plt Count 247 K/mm3 (142-424) 03/22/18 16:55 BUN 7 mg/dL (7-18) 03/22/18 16:55 Creatinine 0.77 mg/dL (0.55-1.02) 03/22/18 16:55 Estimated Creat Clear 99 mL/min (0-300) 03/22/18 16:55 Was VTE Risk Assessment Performed: Yes VTE Score: 0 VTE Risk Level: Very Low Risk Clinical Trial Participant: No - Prophylaxis VTE Prophylaxis Ordered?: Yes Types of VTE Prophylaxis: TEDS Knee High
[2018-03-23 07:42] LABS: Basophils % 0.3 % (0.1-2.0); Eosinophils # 0.1 K/mm3 (0.0-0.4); Eosinophils % 1.6 % (0.1-12.0); Hematocrit 36.1 % (37.0-47.0); Lymphocytes # 1.6 K/mm3 (0.7-4.5); Lymphocytes % 29.5 K/mm3 (10-50); Mean Corpuscular HGB Conc 32.4 g/dL (31.8-35.4); Mean Corpuscular Hemoglobin 31.2 pg (27.0-31.2); Mean Corpuscular Volume 96.2 fl (81-99); Mean Platelet Volume 7.7 fl (7.4-10.4); Monocytes # 0.3 K/mm3 (0.1-1.0); Neutrophils # 3.4 K/mm3 (1.8-7.8); Neutrophils % 62.6 % (37.0-80.0); Platelet Count 184 K/mm3 (142-424); Red Blood Count 3.75 M/mm3 (4.20-5.40); Red Cell Distribution Width 12.6 % (11.5-17.5); White Blood Count 5.5 K/mm3 (4.8-10.8)
[2018-03-23 07:50] LABS: Hemoglobin 11.9 g/dL (12.2-16.2)
--- NOTE | 2018-03-23 08:21 | Progress Note ---
Internal Medicine - PN: Subj *Date: 03/23/18 *Time: 08:18 Interval history: She seems to be doing a little better this morning. Her blood pressure is slightly low but I suspect this is as a result of the Dilaudid she is receiving. Her white count has come down from 12.8-5.5. She is afebrile. She was able to sleep most of the night. Says this is the first time she has had a good night sleep in a couple of weeks. She still complains of some epigastric pain. She is tender in the epigastrium as well as in the deep pelvis. Her belly this morning is soft. Exam Vital signs and Labs for Last 24 Hours: Temp Pulse Resp BP Pulse Ox 97.7 F 56 L 16 90/58 97 03/23/18 04:00 03/23/18 04:00 03/23/18 04:00 03/23/18 04:00 03/23/18 04:00 Laboratory Results - last 24 hr 03/22/18 16:55: Urine Color Yellow, Urine Appearance Clear, Urine pH 6.0, Ur Specific [place] 1.010, Urine Protein Negative, Urine Glucose (UA) Negative, Urine Ketones Negative, Urine Blood Negative, Urine Nitrate Negative, Urine Cory irubin Negative, Urine Urobilinogen 0.2, Ur Leukocyte Esterase Negative, Urine WBC Occasional, Ur Squamous Epith Cells 3-5, Urine Bacteria 3+ 03/22/18 16:55: WBC 12.8 H, RBC 4.47, Hgb 13.8, Hct 43.0, MCV 96.2, MCH 31.0, MCHC 32.2, RDW 12.6, Plt Count 247, MPV 7.4, Neut % (Auto) 85.2 H, Lymph % (Auto) 11.3, [place] % (Auto) 3.0, Eos % (Auto) 0.4, Baso % (Auto) 0.1, Neut # (Auto) 10.9 H, Lymph # (Auto) 1.5, [place] # (Auto) 0.4, Eos # (Auto) 0.1, Baso # (Auto) 0.0, Total Counted 100, Neutrophils % (Manual) 86 H, Lymphocytes % (Manual) 8 L, Atypical Lymphs % 1.0, Monocytes % (Manual) 5, Platelet Estimate Normal, RBC Morphology Normal 03/22/18 16:55: Sodium 141, Potassium 3.6, Chloride 105, Carbon Dioxide 30, Anion Gap 9.6, BUN 7, Creatinine 0.77, Estimated Creat Clear 99, Estimated GFR 88, Est GFR ( Amer) 107, Glucose 86, Calcium 8.7, Total Bilirubin 0.5, AST 11 L, ALT 17, Alkaline Phosphatase 64, Total Protein 8.0, Albumin 3.9, Globulin 4.1 H, Albumin/Globulin Ratio 1.0 L 03/22/18 19:37: Amylase 45 03/22/18 19:37: Lactate 0.5 03/22/18 19:37: Lipase 82 03/23/18 07:00: WBC 5.5 D, RBC 3.75 L, Hgb 11.9 L D, Hct 36.1 L, MCV 96.2, MCH 31.2, MCHC 32.4, RDW 12.6, Plt Count 184 D, MPV 7.7, Neut % (Auto) 62.6, Lymph % (Auto) 29.5, [place] % (Auto) 6.0, Eos % (Auto) 1.6, Baso % (Auto) 0.3, Neut # (Auto) 3.4, Lymph # (Auto) 1.6, [place] # (Auto) 0.3, Eos # (Auto) 0.1, Baso # (Auto) 0.0 I & O for Last 24 hours: Intake & Output 03/20/18 03/21/18 03/22/18 03/23/18 11:59 11:59 11:59 11:59 Intake Total 120 / 120 Balance 120 / 120 Weight 130 lb - Constitutional no acute distress - *Routine HEENT Exam Head: Present: normocephalic Eye: Present: EOMI, PERRL ENT: Present: mucous membranes moist - *Routine Respiratory Exam Absent: accessory muscle use (good air entry bilaterally), wheezes, crackles - *Routine Abdominal Exam Present: soft, normoactive bowel sounds, tenderness. Absent: rebound, guarding, mass Assessment and Plan (1) Abdominal pain Current visit: Yes Status: Acute Category: Medical Code(s): R10.9 - Unspecified abdominal pain (2) Pelvic pain Current visit: No Status: Acute Category: Medical Code(s): R10.2 - Pelvic and perineal pain - Assessment and plan all Dx Assessment and Plan for all problems:: At this point in time she seems to be doing a little better. Her white cell count has come down. We will review the CT scan with the radiologist today. We will go ahead and give her a Dulcolax suppository today as well and see if this helps.
--- NOTE | 2018-03-23 13:40 | Progress Note ---
Subjective Narrative: Patient states that she feels about the same. She has burning abdominal pain and tenderness. Exam Vital signs and Labs for Last 24 Hours: Temp Pulse Resp BP Pulse Ox 97.7 F 56 L 16 90/58 97 03/23/18 04:00 03/23/18 04:00 03/23/18 11:15 03/23/18 04:00 03/23/18 04:00 Laboratory Results - last 24 hr 03/22/18 16:55: Urine Color Yellow, Urine Appearance Clear, Urine pH 6.0, Ur Specific [place] 1.010, Urine Protein Negative, Urine Glucose (UA) Negative, Urine Ketones Negative, Urine Blood Negative, Urine Nitrate Negative, Urine Bilirubin Negative, Urine Urobilinogen 0.2, Ur Leukocyte Esterase Negative, Urine WBC Occasional, Ur Squamous Epith Cells 3-5, Urine Bacteria 3+ 03/22/18 16:55: WBC 12.8 H, RBC 4.47, Hgb 13.8, Hct 43.0, MCV 96.2, MCH 31.0, MCHC 32.2, RDW 12.6, Plt Count 247, MPV 7.4, Neut % (Auto) 85.2 H, Lymph % (Auto) 11.3, [place] % (Auto) 3.0, Eos % (Auto) 0.4, Baso % (Auto) 0.1, Neut # (Auto) 10.9 H, Lymph # (Auto) 1.5, [place] # (Auto) 0.4, Eos # (Auto) 0.1, Baso # (Auto) 0.0, Total Counted 100, Neutrophils % (Manual) 86 H, Lymphocytes % (Manual) 8 L, Atypical Lymphs % 1.0, Monocytes % (Manual) 5, Platelet Estimate Normal, RBC Morphology Normal 03/22/18 16:55: Sodium 141, Potassium 3.6, Chloride 105, Carbon Dioxide 30, Anion Gap 9.6, BUN 7, Creatinine 0.77, Estimated Creat Clear 99, Estimated GFR 88, Est GFR ( Amer) 107, Glucose 86, Calcium 8.7, Total Bilirubin 0.5, AST 11 L, ALT 17, Alkaline Phosphatase 64, Total Protein 8.0, Albumin 3.9, Globulin 4.1 H, Albumin/Globulin Ratio 1.0 L 03/22/18 19:37: Amylase 45 03/22/18 19:37: Lactate 0.5 03/22/18 19:37: Lipase 82 03/23/18 07:00: WBC 5.5 D, RBC 3.75 L, Hgb 11.9 L D, Hct 36.1 L, MCV 96.2, MCH 31.2, MCHC 32.4, RDW 12.6, Plt Count 184 D, MPV 7.7, Neut % (Auto) 62.6, Lymph % (Auto) 29.5, [place] % (Auto) 6.0, Eos % (Auto) 1.6, Baso % (Auto) 0.3, Neut # (Auto) 3.4, Lymph # (Auto) 1.6, [place] # (Auto) 0.3, Eos # (Auto) 0.1, Baso # (Auto) 0.0 I & O for Last 24 hours: Intake & Output 03/21/18 03/22/18 03/23/18 03/24/18 11:59 11:59 11:59 11:59 Intake Total 220 / 220 Balance 220 / 220 Weight 130 lb - *Routine Abdominal Exam Present: soft, tenderness Progress Note: A&P (1) Abdominal pain Status: Acute Current Visit: Yes (2) Pelvic pain Status: Acute Current Visit: No Assessment and Plan for All Diagnoses:: I reviewed her ultrasound with radiology. Gallbladder ultrasound is essentially normal. Pelvic ultrasound does reveal some fluid and left ovarian cyst but relatively unimpressive. If there is no plan for gynecologic surgical intervention and may be reasonable to go ahead start a diet. Plan to continue levofloxacin and metronidazole.
--- NOTE | 2018-03-24 10:27 | Progress Note ---
[facility] Anesthesia Checklist - Patient Identification Patient Identification: Arm Band - Structural Data Admitted From: Home Planned Operative Procedure/s: diagnostic laparoscopy Consent for Planned Operative Procedure(s) Verified: Yes Verified Documents: Surgical Consent, History and Physical - NPO Status Verified Time NPO: 00:00 - Additional verifications Anesthesia Reactions: No - Airway Assessment C-Spine Mobility Assessed: Yes (mp2) TMJ Mobility Assessed: Yes Dentition: Good Dentition - Neurological Assessment Level of Consciousness: Awake, Alert - Anesthesia Plan Anesthesia Risk discussed: Yes Anesthesia Plan: Verified ASA Class: II Anesthesia Type: General [facility] History I have reviewed the patient's past medical history: Yes Medical History: Denies:: Cancer, Diabetes Mellitus Type 1, Diabetes Mellitus Type 2, MRSA, Seizures Other Medical History: Denies: Blood Transfusion Reaction Other Surgeries: Yes: Appendectomy, Hysterectomy-Partial, Tubal Ligation, Other Amputation: No Fractures: No - *Social History Educational Level: Completed High School Smoking Status: Current every day smoker Tobacco Type: cigarettes Alcohol Intake: never Substance Use Type: denies use Occupational Status: unemployed Housing: house Household Members: spouse, children - Psychiatric History Expresses thoughts of harming self/others: None Suicide Plan Description: No Plan *Family Hx:: No significant family history, Cancer
--- NOTE | 2018-03-24 10:58 | Progress Note ---
Internal Medicine - PN: Subj *Date: 03/24/18 *Time: 10:57 Interval history: She continues to have lower abdominal pain and taking narcotic pain. She is afebrile. We will go ahead with a diagnostic laparoscopy this morning. We discussed the risks of surgery that includes bleeding, infection, injuries to the bowel and bladder. All questions were answered and consents were signed. Exam Vital signs and Labs for Last 24 Hours: Temp Pulse Resp BP Pulse Ox 98.6 F 64 16 90/53 96 03/24/18 07:03/24/18 07:03/24/18 07:03/24/18 07:03/24/18 08:00 Laboratory Results - last 24 hr 03/24/18 09:52: Urine HCG, Qual Negative I & O for Last 24 hours: Intake & Output 03/21/18 03/22/18 03/23/18 03/24/18 11:59 11:59 11:59 11:59 Intake Total 320 / 320 1343 / 1343 Balance 320 / 320 1343 / 1343 Weight 130 lb 145 lb 15.136 oz Microbiology Reports for the Last 24 Hours: Microbiology 03/22/18 16:55 Urine,Clean Catch Urine Culture - Preliminary NO GROWTH AFTER 24 HOURS - Constitutional no acute distress Assessment and Plan (1) Abdominal pain Current visit: Yes Status: Acute Category: Medical Code(s): R10.9 - Unspecified abdominal pain (2) Pelvic pain Current visit: No Status: Acute Category: Medical Code(s): R10.2 - Pelvic and perineal pain - Assessment and plan all Dx Assessment and Plan for all problems:: We will plan to go ahead with a laparoscopy this morning.
--- NOTE | 2018-03-24 12:23 | Operative Note ---
Date of procedure: 03/24/18 Pre-op Diagnosis:: Pain possible ovarian cyst Post-op Diagnosis:: Pelvic pain, residual abscess Procedure performed:: Laparoscopy with removal of residual abscess tissue Surgeon:: Rajiv Brewer MD STORE ADMINISTRATIVE ASSISTANT:: Other (Rashid Mcintosh) Anesthesia: GETA Estimated blood loss (mL): 50 Clinical Note:: She is a 28-year-old lady who complains of severe abdominal pain. She had peritoneal symptoms but a CT scan as well as ultrasound was essentially normal. She had a trace of fluid in the cul-de-sac. She had a slight white count when s he came in but this resolved over the first night. Since she continued to have pain we elected to perform a diagnostic laparoscopy. Of note she had a right ovarian abscess about 9 months ago. She had a right salpingo-oophorectomy at that time. Operative findings:: She had a moderate amount of serosanguineous fluid in the pelvis. There was no pus. It seemed to be inflammatory fluid. The left ovary appeared normal. The uterus appeared normal. There were filmy adhesions in the pelvis. When I pulled the uterus up out of the pelvis it was noted that the pocket of granular tissue against the right pelvic sidewall. This was just below the right round ligament against the pelvic sidewall. It seemed to be approximately 3 cm x 3 cm in size. It was not an abscess. I was able to remove this in its entirety. It seemed to be quite inflammatory though possibly residual from the Surgicel that was left 9 months ago. Operative note:: She was taken the operating room where general anesthesia was found be adequate. She was prepped and draped in normal sterile fashion in the semilithotomy position. A sponge forcep was placed in the vagina. I injected 10 cc of 0.5% ropivacaine around the umbilicus and made a small incision within the umbilicus. I inserted a Veress needle into the abdominal cavity and insufflated the abdominal cavity for 20 mmHg. I then inserted a 5 mm trocar under direct vision. Findings were as previously dictated. I then injected through and through the pubic hairline, made a small incision and inserted a 5 mm trocar under direct vision. Identified the inferior epigastric arteries on the left side, went lateral to these and injected through and through. I then placed a 5 mm trocar here under direct vision. The pelvis was drained and the fluid was sent for culture. I then further inspected the pelvis and found this granular tissue on the right pelvic sidewall. I have scraped it off and suck the tissue out. Some of it was sent to pathology. After rinsing the pelvis well once again I then sprayed the fossa where the tissue had been located with Nelson. I then placed a 1/2 piece of Interceed in the raw area. Secondary trochars removed under direct vision the sites were hemostatic. The gas was let out of the abdomen. The primary trocar and camera were removed together. The trocar sites were then closed with septic care 4-0 Monocryl suture. Sterile dressings were applied. She tolerated the procedure well and was taken to recovery room in excellent condition. All sponge instrument and needle counts were correct. The estimated blood loss was approximately 50 cc. Condition: stable Disposition: PACU Specimens:: Granular tissue from the abscess cavity. Complications:: None
--- NOTE | 2018-03-24 12:30 | Progress Note ---
[facility] Anesthesia Record Part I Intake, IV Amount: 900 Estimated blood loss (mL): 50 Urine output (mL): 75 Blood Products used (#): none Blood Pressure: 125/76 SaO2: 97 Pulse Rate: 74 Respiratory Rate: 12 Temperature: 98.5 F Patient is:: Awake, Stable Stable to PACU at:: 12:25
--- NOTE | 2018-03-24 12:31 | Progress Note ---
[facility] Anesthesia Record Part II Discharge Time: 12:55 Destination: Medical Surgical Department PACU nurse assessment reviewed?: Yes Patient Condition:: Good Anesthesia Complications:: None
--- NOTE | 2018-03-26 08:25 | Discharge Summary ---
General - General Admission date:: 03/22/18 Discharge date: 03/25/18 HPI HPI: She 28-year-old lady who complains of severe abdominal pain. She was seen in my office and she had peritoneal signs. We elected to admit her for observation. She was seen by Dr. Arreola in consultation as well. CT scan that was essentially normal with some fluid in the pelvis she had on as well that was essentially normal. Since she continued to have peritoneal signs despite the fact that she was on antibiotics and there was really nothing on a CT scan, we did to perform a laparoscopy see what was happening. She initially had a white blood cell count of 12.8 on arrival but was 5.5 the next morning. Hospital Course Hospital Course: She was admitted and observed overnight. We like to perform a laparoscopy on her second hospital admission day. She had a necrotic area on the right side of the pelvis approxi-3-4 cm in size. It was not clear what this necrotic tissue was but she had skin inflammation in the pelvis likely causing her periods. We remove this at the time of her laparoscopy. No rinsed the pelvis appeared normal. She has done well postoperatively and has remained afebrile throughout her hospitalization. She is eating and drinking and ambulating. Her pain is improved. We will send her home today and she will follow-up with me in the office in 2 weeks time. She will continue with Toradol and I have given her prescription for Percocet 5/25, 30 tablets. Objective Vital signs: Temp Pulse Resp BP Pulse Ox 97.9 F 65 16 109/59 97 03/25/18 08:00 03/25/18 08:00 03/25/18 08:00 03/25/18 08:00 03/25/18 08:00 no acute distress - *Routine HEENT Exam Head: Present: normocephalic - *Routine Abdominal Exam Present: soft, normoactive bowel sounds, surgical scars Results Labs on day of discharge: Labs from last 24 hours 03/24/18 09:52 Urine HCG, Qual Negative DS: Diagnosis - Discharge Diagnosis (1) Abdominal pain Status: Acute (2) Pelvic pain Status: Acute Discharge Plan - Patient Discharge Instructions ACTIVITY: No heavy lifting DIET: continue same diet - Follow up Plan Disposition: Home, Self-Alf Medications: Home Medications Medication Instructions Recorded Confirmed Type levonorgestrel 20 mcg/24 hr (5 1 insert INTRAUTERI ONCE 09/25/17 03/22/18 History years) intrauterine device Prescriptions/Medication Reconciliation: New Oxycodone HCl/Acetaminophen [Percocet 5/325mg tablet] 1 - 2 tab PO Q4-6H PRN #30 tab PRN Reason: Severe Pain Ketorolac Tromethamine [Toradol 10mg tablet] 10 mg PO Q6H 5 Days #20 tab Continue levonorgestrel 20 mcg/24 hr (5 years) intrauterine device 1 insert INTRAUTERI ONCE
== END 2018-03-25 10:24 | disposition home or self-care (01) ==
LOC: 2ND
PROVIDERS: ADMIT Nurse Practitioner Obstetrics & Gynecology; ATTEND Nurse Practitioner Obstetrics & Gynecology
DX: N70.13 Chronic salpingitis and oophoritis

== ENCOUNTER → 2019-12-23 09:14 | Outpatient (CLI) | payer OTHER, SELFPAY ==
--- NOTE | 2019-12-23 09:14 | US_ITS ---
PROCEDURE: MM DIG MAMM DX UNILAT LT CAD Digital Breast Tomosynthesis Included Left breast ultrasound complete with axilla CLINICAL INDICATION: PALP AREA, FAMILY HX BREAST CANCER COMPARISON: US BREAST LT COMPLETE from 12/23/2019 TECHNIQUE: Standard CC and MLO images and 3D Tomosynthesis was obtained. R2 CAD reviewed. Left breast ultrasound complete with axilla FINDINGS: There is average fibroglandular tissue. No malignant appearing mass or malignant-appearing microcalcification. There is a well-circumscribed nodule within the lower inner aspect of the left breast measuring approximately 1 cm. Left breast ultrasound: There is a well-circumscribed 9 mm hypoechoic subcutaneous nodule in the 8 o'clock region of the left breast. There is some enhanced the through transmission of sound. In addition, there is a complicated 6 mm cyst in the retroareolar region. Small nodes are present in axilla IMPRESSION: Benign-appearing nodular density in the 8 o'clock region of the left breast as detailed above. Differential diagnosis would include sebaceous cyst/epidermal inclusion cyst or fibroadenoma. Suggest 3 month sonographic follow-up to confirm short-term stability BI-RAD Category: 3 Probably Benign Finding Short Term Follow-up FOLLOW-UP: 3M 3 Month Follow-up (A letter has been sent to the patient regarding results of the study.) Dictated by: Brad Olivas MD 12/26/2019 15:47 Electronically signed by Brad Olivas MD in [place] 12/26/2019 15:47
== END ==
PROVIDERS: PCP Pediatrics; Visit Provider Nurse Practitioner Obstetrics & Gynecology
DX: N63.24 Unspecified lump in the left breast, lower inner quadrant (principal)
CPT/HCPCS: 76641; 77061; 77065; G0279

== ENCOUNTER 2020-01-25 13:37 | Emergency (ER) | payer OTHER, SELFPAY ==
[2020-01-25 13:55] VITALS: BP 142/86; PULSE 79; RESP 18; TEMP 36.6; O2SAT 99; BMI 22.3
--- NOTE | 2020-01-25 14:17 | HMH.EDUTC ---
[facility] – [place] Disposition Clinical Impression: Bronchitis Sinusitis Qualifiers: Sinusitis location: unspecified location Chronicity: unspecified Qualified Code(s): J32.9 - Chronic sinusitis, unspecified Disposition: Home, Self-Care Condition on Discharge: Good Instructions: Sinusitis, Sinus Headache, Acute Bronchitis, DI for Sinusitis, DI for Acute Bronchitis Additional Instructions: *Monitor Temp, Over the counter Motrin or Tylenol as directed/as needed Tylenol every 4 hours and Motrin every 6 hours (as long as your family doctor has told you that you can take it) for fever or pain. and straight to ER if unable to lower temp less than 101.0 after medication given *Warm salt water gargles may help to soothe the throat *Throat Lozenges *Warm fluids like tea with honey may help to soothe the throat *Sleep elevated *Humidifier/Vaporizer Your throat swab was sent for culture. Those results are typically sent to your primary care. Be sure to follow up in 2-3 days with your family doctor/primary care physician if no improvement so they can review those result and treat if necessary. If you don?t have a primary care doctor, I recommend you get one but in the mean time, you will have to return to a walk in clinic Follow up IMMEDIATELY for new or worsening symptoms or no Noticeable improvement over the next 48-72 hours. 911 for difficulty breathing or swallowing Prescriptions: Albuterol Sulfate [Proventil-HFA 90mcg/puff Inh] 1 - 2 puffs IH Q4HP PRN #1 inh PRN Reason: Shortness Of Breath Transmission Status: Received by [id number] methylPREDNISolone [Medrol 4mg tab] 4 mg PO DIRECTED #21 tab Transmission Status: Received by [id number] Azithromycin [Z-Kaveh 250mg Tab] 250 mg PO DIRECTED #6 tab Transmission Status: Received by [id number] Referrals: Derian Singh [Primary Care Provider] - As needed Forms: Work/School Release Time of Disposition: 14:20 Medical Decision Making - Jd Inquiry Pt receiving controlled substance: No Jd was queried for this patient: No Vital Signs: 01/25/20 13:55 01/25/20 14:19 Temperature 97.9 F 97.9 F Temperature Source Oral Pulse Rate 79 Pulse Rate [Right Brachial] 79 Respiratory Rate 18 18 Blood Pressure 147/86 H Blood Pressure [Right Arm] 142/86 H Blood Pressure Mean [Right Arm] 104 Blood Pressure Source [Right Arm] Automatic Cuff Blood Pressure Position [Right Arm] Sitting 02 Sat by Pulse Oximetry 99 Oxygen Delivery Method Room Air Room Air - Lab Data Lab results reviewed: Yes: I reviewed the patient's lab results. Lab Results 01/25/20 14:05: Strep Scn Rapid Clinic Negative Orders (Tests/Meds): ORDERS Category Date Time Status Strep Screen Confirmation Stat Micro 01/25/20 14:05 Received [facility] [place] HPI - General Stated complaint: cough Time Seen by Provider: 01/25/20 14:17 Mode of Arrival: Ambulatory Source of Information: Patient Limitations: No Limitations Description of Symptoms (Recalled from Triage Doc. by RN): sore throat, cough, headache for 5 days. children tested positive for strep HEENT Symptoms (Recalled from RN notes): Yes Resp Symptoms (Recalled from RN notes): Yes Skin Symptoms (Recalled from RN notes): No MS Symptoms (Recalled from RN notes): No Functional Status (Recalled from RN notes): none - History of Present Illness Provider Complaint: Patient state that her children was seen and treated last week with strep throat States that she has been having sore irritated throat along with sinus pain and pressure with drainage in the back of her throat States that she gets bronchitis about twice a year and feels a little like it does then - Related Data Home Medications Medication Instructions Recorded Confirmed levonorgestrel 20 mcg/24 hours (5 1 insert INTRAUTERI ONCE 09/25/17 01/25/20 yrs) 52 mg intrauterine device Previous Rx's Medication Instructions Recorded Albuterol Sulfate [
[2020-01-25 14:19] VITALS: BP 147/86; PULSE 79; RESP 18; TEMP 36.6; O2SAT 99
[2020-01-25 14:19] LABS: UTC Strep Screen (Rapid) Negative (Negative)
== END 2020-01-25 14:21 | disposition home or self-care (01) ==
PROVIDERS: Emergency Provider Nurse Practitioner; PCP Pediatrics
DX: J32.9 Chronic sinusitis, unspecified (principal); F17.210 Nicotine dependence, cigarettes, uncomplicated; Z90.49 Acquired absence of other specified parts of digestive tract; Z90.79 Acquired absence of other genital organ(s)
CPT/HCPCS: 87880; 99201

== ENCOUNTER 2022-07-28 16:42 | Emergency (ER) | payer BC, SELFPAY ==
[2022-07-28] VITALS (9 sets, daily range): BP systolic 100–144; BP diastolic 62–87; PULSE 56–79; RESP 13–17; TEMP 36.6; O2SAT 99–100; BMI 25.7
[2022-07-28 17:25] LABS: Basophils # 0.1 K/mm3 (0-0.2); Basophils % 1.1 % (0.1-2.0); Eosinophils # 0.1 K/mm3 (0.0-0.4); Eosinophils % 1.8 % (0.1-12.0); Hematocrit 42.5 % (37.0-47.0); Hemoglobin 14.2 g/dL (12.2-16.2); Lymphocytes # 2.7 K/mm3 (0.7-4.5); Lymphocytes % 40.5 % (10-50); Mean Corpuscular HGB Conc 33.4 g/dL (31.8-35.4); Mean Corpuscular Hemoglobin 31.1 pg (27.0-31.2); Mean Corpuscular Volume 93.3 fl (81-99); Mean Platelet Volume 7.4 fl (7.4-10.4); Monocytes # 0.3 K/mm3 (0.1-1.0); Monocytes % 4.1 % (1.7-9.3); Neutrophils # 3.5 K/mm3 (1.8-7.8); Neutrophils % 52.4 % (37.0-80.0); Platelet Count 293 K/mm3 (142-424); Red Blood Count 4.55 M/mm3 (4.20-5.40); Red Cell Distribution Width 12.5 % (11.5-17.5); White Blood Count 6.7 K/mm3 (4.8-10.8)
[2022-07-28 17:28] LABS: Chloride 103 mmol/L (98-107); Potassium 3.8 mmoL/L (3.5-5.1); Sodium 140 mmol/L (136-145)
[2022-07-28 17:31] LABS: Alanine Aminotransferase 16 U/L (12-78); Albumin Level 4.8 g/dl (3.5-5.0); Albumin/Globulin Ratio 1.5 (1.1-1.8); Alkaline Phosphatase 52 U/L (38-126); Anion Gap 10.8 mEq/L (5-15); Aspartate Amino Transferase 24 U/L (14-36); Bilirubin,Total 0.3 mg/dl (0.2-1.3); Blood Urea Nitrogen 7 mg/dl (7-17); Calcium 8.9 mg/dl (8.4-10.2); Carbon Dioxide 30 mmol/L (22.0-30.0); Creatinine Clearance Estimated 122 mL/min (50-200); Estimated Glomerular Filt Rate 96 ml/min (>60); GFR (African American) 116 ML/MIN (>60); Globulin 3.3 g/dL (1.3-3.2); Glucose 84 mg/dl (74-100); Total Protein,Serum 8.1 g/dl (6.3-8.2)
[2022-07-28 17:36] LABS: C-Reactive Protein 1.5 mg/L (0-4)
[2022-07-28 18:09] LABS: Erythrocyte Sedimentation Rate 13 mm/hr (0-20)
--- NOTE | 2022-07-28 18:57 | PC.NURSE ---
DR BERRIOS AT BEDSIDE
--- NOTE | 2022-07-28 19:10 | HMH.EDGENADL ---
Discharge Plan Disposition Patient Disposition: Still a Patient Chief Complaint: PAIN Prescriptions Prescriptions: No Action levonorgestrel [Mirena] 20 mcg/24 hr (5 years) intrauterine device 1 insert INTRAUTERI ONCE azithromycin 250 MG tablet 250 mg PO DIRECTED Qty: 6 0RF Rx Instructions: Take two (2) tablets on day #1, then one (1) tablet day #2 thru #5 methylprednisolone 4 MG tablet 4 mg PO DIRECTED Qty: 21 0RF Rx Instructions: Take as directed on package instructions albuterol sulfate 200 PUFFS HFA aerosol inhaler 1 - 2 puffs IH Q4HP PRN (Reason: Shortness Of Breath) Qty: 1 0RF Referrals Follow up/Referrals: Derian Singh [Primary Care Provider] - See instructions Clinical Impressions Clinical Impression: Abdominal pain, Sciatica of right side Discharge ED Provider: Sheryl Mendoza General Adult HPI General Chief complaint: PAIN Stated complaint: right side numbess Time Seen by Provider: 07/28/22 19:27 Mode of Arrival: Ambulatory Limitations: No Limitations Description of Symptoms (Recalled from ER Triage Doc. by RN): PT REPORTS RIGHT HIP PAIN AND NUMBNESS THAT RADIATES DOWN THE BACK OF HER LEG, STARTED TODAY. PT WITH FULL ROM, NO LOSS OF SENSATION. REPORTS PAIN TO RIGHT SHOULDER LIKE I'VE BEEN PUNCHED STARTED TODAY WELL. STATES SHE WASN'T FEELING WELL THIS WEEKEND, WITH NAUSEA. PT WITHOUT DEFICTS, FULL ROM TO ALL EXTREMITIES, NO INJURY History of Present Illness HPI narrative: pt with upper abd pain over the last 2 days and today with rt glutal parasthesia - no fever/rash or trauma - Onset (ago): day(s) Location: abdomen and buttocks Severity: moderate Associated symptoms: denies other symptoms Related Data Home Medications Medication Instructions Recorded Confirmed levonorgestrel 20 mcg/24 hours (8 1 insert intrauterine ONCE 09/25/17 01/25/20 yrs) 52 mg intrauterine device control (Mirena) Previous Rx's Medication Instructions Recorded albuterol sulfate 90 mcg/actuation 1 - 2 puffs IH Q4HP PRN Shortness 01/25/20 aerosol inhaler Of Breath #1 inh azithromycin 250 mg tablet 250 mg PO DIRECTED #6 tabs 01/25/20 methylprednisolone 4 mg tablet 4 mg PO DIRECTED #21 tabs 01/25/20 Allergies Allergy/AdvReac Type Severity Reaction Status Date / Time Penicillins Allergy Verified 01/25/20 13:55 [facility] Disclaimer: The information contained in this section may have been updated after the patient was seen, as this information can be updated by other users. Social History (System 08/04/17 @ 12:40 by Isela Parker) Smoking Status: Never smoker second hand exposure: No alcohol intake: never substance use type: denies use current occupational status: employed Travel in the last 8 weeks: None household members: spouse and children housing: house current occupational exposures/hazards: No caffeine: Yes ROS Obtained: Yes All systems reviewed & no additional complaints except as documented Physical Exam General General appearance: alert Head Head exam: normocephalic Eye Eye exam: Present PERRL and EOMI ENT ENT exam: Present mucous membranes moist Neck Neck exam: Present trachea midline Respiratory Respiratory exam: Absent respiratory distress Cardiovascular Cardiovascular exam: Present regular rate Abdominal Exam Abdominal exam: Present soft and tenderness; Absent guarding or rebound Extremities Exam Extremities exam: Present full ROM Neurological Exam Neurological exam: Present alert, oriented X3 and CN II-XII intact; Absent motor sensory deficit Psychiatric Psychiatric exam: Present normal affect Skin Skin exam: Absent rash Medical Decision Making Medical Records Medical records reviewed: Yes I reviewed the patient's medical records. Jd Inquiry Pt receiving controlled substance: No Vital Signs: 07/28/22 16:44 07/28/22 17:00 07/28/22 17:31 Temperature 97.8 F Temperature Source
--- NOTE | 2022-07-28 19:12 | CT_ITS ---
PROCEDURE INFORMATION: Exam: CT Abdomen And Pelvis With Contrast Exam date and time: 07/28/2022 7:51 PM Age: 32 years old Clinical indication: Abdominal pain; Generalized; Additional info: Abd pain, nausea TECHNIQUE: Imaging protocol: Computed tomography of the abdomen and pelvis with contrast. Radiation optimization: All CT scans at this facility use at least one of these dose optimization techniques: automated exposure control; mA and/or kV adjustment per patient size (includes targeted exams where dose is matched to clinical indication); or iterative reconstruction. Contrast material: ISOVUE; Contrast volume: 75 ml; Contrast route: IV; COMPARISON: ABDPELWW CT abdomen pelvis wo/w con 03/22/2018 6:32 PM FINDINGS: Liver: Normal. No mass. Gallbladder and bile ducts: No calcified stones. No ductal dilation. Pancreas: Normal enhancement. No ductal dilation. Spleen: No splenomegaly. Adrenal glands: No mass. Kidneys and ureters: No hydronephrosis. Stomach and bowel: Descending colon is decompressed and not well evaluated. No obstruction. Appendix: No evidence of appendicitis. Intraperitoneal space: No significant fluid collection. No free air. Vasculature: No abdominal aortic aneurysm. Lymph nodes: No enlarged lymph nodes. Urinary bladder: No acute abnormality. Reproductive: IUD within the uterus. Bones/joints: Erosion of the pubic symphysis which is similar to prior examination. Mild scoliosis. No acute fracture. Soft tissues: No soft tissue swelling. IMPRESSION: No acute findings.
--- NOTE | 2022-07-28 19:12 | CT_ITS ---
PROCEDURE INFORMATION: Exam: CT Lumbar Spine Without Contrast Exam date and time: 07/28/2022 7:48 PM Age: 32 years old Clinical indication: Low back pain TECHNIQUE: Imaging protocol: Computed tomography of the lumbar spine without contrast. Radiation optimization: All CT scans at this facility use at least one of these dose optimization techniques: automated exposure control; mA and/or kV adjustment per patient size (includes targeted exams where dose is matched to clinical indication); or iterative reconstruction. COMPARISON: ABDPELWW CT abdomen pelvis wo/w con 03/22/2018 6:32 PM FINDINGS: Bones/joints: Mild scoliosis. No acute fracture. No significant disc protrusion. No severe spinal canal stenosis. Soft tissues: Unremarkable. IMPRESSION: No acute findings.
--- NOTE | 2022-07-28 19:14 | PC.NURSE ---
lab notified of new orders on pt
[2022-07-28 19:26] LABS: Microscopic, Urine URINE MICROSCOPIC (MICROSCOPIC)
[2022-07-28 19:28] LABS: Amylase 86 U/L (30-110); Lipase 80 U/L (23-300)
[2022-07-28 19:33] LABS: Appearance,Urine CLEAR (Clear); Bilirubin,Urine Negative (Negative); Blood, Urine TRACE-I (Negative); Color,Urine YELLOW (Yellow); Glucose,Urine (UA) Negative (Negative); Ketones,Urine Negative (Negative); Leukocyte Esterase,Urine Negative (Negative); Nitrate,Urine Negative (Negative); Protein,Urine Negative (Negative); Specific Gravity, Urine 1.025 (1.005-1.030); Urobilinogen,Urine 0.2 EU/dl (0.2)
[2022-07-28 19:35] LABS: Urine Pregnancy, HCG Qual. Negative (Negative)
--- NOTE | 2022-07-28 19:45 | PC.NURSE ---
Pt gone to RAD via wheelchair
[2022-07-28 19:46] LABS: RBC,Urine Occasional #/hpf (0-3); Squamous Epithelial Cell,Urine Occasional #/hpf (0-5)
--- NOTE | 2022-07-28 19:56 | PC.NURSE ---
Pt back from RAD via wheelchair
--- NOTE | 2022-07-29 01:06 | HMH.EDGENADL ---
Discharge Plan Disposition Patient Disposition: Home, Self-Care Condition: Good Prescriptions Prescriptions: No Action levonorgestrel [Mirena] 20 mcg/24 hr (5 years) intrauterine device 1 insert INTRAUTERI ONCE azithromycin 250 MG tablet 250 mg PO DIRECTED Qty: 6 0RF Rx Instructions: Take two (2) tablets on day #1, then one (1) tablet day #2 thru #5 methylprednisolone 4 MG tablet 4 mg PO DIRECTED Qty: 21 0RF Rx Instructions: Take as directed on package instructions albuterol sulfate 200 PUFFS HFA aerosol inhaler 1 - 2 puffs IH Q4HP PRN (Reason: Shortness Of Breath) Qty: 1 0RF Referrals Follow up/Referrals: Derian Singh [Primary Care Provider] - See instructions Activity Restrictions/Add. Instructions Additional Instructions/Restrictions: Recommend trying symptomatic management including Tylenol ibuprofen for discomfort, light stretches, heat or ice to the area. Your tests today were reassuring. Please follow-up with your regular doctor for continued management if your symptoms persist. Clinical Impressions Clinical Impression: Abdominal pain, Sciatica of right side Stand Alone Forms Stand Alone Forms: Work/School Release Instructions Patient Instructions: Sciatica, DI for Back Pain With Sciatica Discharge ED Provider: Sheryl Mendoza General Adult HPI General Chief complaint: PAIN Stated complaint: right side numbess Time Seen by Provider: 07/28/22 19:27 Mode of Arrival: Ambulatory Limitations: No Limitations Description of Symptoms (Recalled from ER Triage Doc. by RN): PT REPORTS RIGHT HIP PAIN AND NUMBNESS THAT RADIATES DOWN THE BACK OF HER LEG, STARTED TODAY. PT WITH FULL ROM, NO LOSS OF SENSATION. REPORTS PAIN TO RIGHT SHOULDER LIKE I'VE BEEN PUNCHED STARTED TODAY WELL. STATES SHE WASN'T FEELING WELL THIS WEEKEND, WITH NAUSEA. PT WITHOUT DEFICTS, FULL ROM TO ALL EXTREMITIES, NO INJURY History of Present Illness HPI narrative: Please see initial ED provider note for additional details. Onset (ago): day(s) Location: abdomen and buttocks Severity: moderate Associated symptoms: denies other symptoms Related Data Home Medications Medication Instructions Recorded Confirmed levonorgestrel 20 mcg/24 hours (8 1 insert intrauterine ONCE 18 01/25/20 yrs) 52 mg intrauterine device control (Mirena) Previous Rx's Medication Instructions Recorded albuterol sulfate 90 mcg/actuation 1 - 2 puffs IH Q4HP PRN Shortness 01/25/20 aerosol inhaler Of Breath #1 inh azithromycin 250 mg tablet 250 mg PO DIRECTED #6 tabs 01/25/20 methylprednisolone 4 mg tablet 4 mg PO DIRECTED #21 tabs 01/25/20 Allergies Allergy/AdvReac Type Severity Reaction Status Date / Time Penicillins Allergy Verified 01/25/20 13:55 PFSH PFS Disclaimer: The information contained in this section may have been updated after the patient was seen, as this information can be updated by other users. Social History (System 08/04/17 @ 12:40 by Isela Parker) Smoking Status: Never smoker second hand exposure: No alcohol intake: never substance use type: denies use current occupational status: employed Travel in the last 8 weeks: None household members: spouse and children housing: house current occupational exposures/hazards: No caffeine: Yes ROS Obtained: Yes other (see initial ED provider note for full history and physical) Physical Exam General General appearance: alert Respiratory Respiratory exam: Present normal lung sounds bilaterally; Absent respiratory distress Cardiovascular Cardiovascular exam: Present normal heart sounds Neurological Exam Neurological exam: Present alert and oriented X3 Medical Decision Making Jd Inquiry Pt receiving controlled substance: No Jd was queried for this patient: No Vital Signs: 07/28/22 16:44 07/28/22 17:00 07/28/22 17:31 Temperature 97.8 F Temperature Source Oral Pul
== END 2022-07-28 21:10 | disposition home or self-care (01) ==
PROVIDERS: Emergency Medicine; Emergency Provider Student in an Organized Health Care Education/Training Program; PCP Pediatrics
DX: M54.31 Sciatica, right side (principal); R10.9 Unspecified abdominal pain
CPT/HCPCS: 72131; 74177; 80053; 81001; 81025; 82150; 83690; 85025; 85651; 86140; 99285; Q9967

== ENCOUNTER 2022-12-02 17:25 | Emergency (ER) | payer BC, SELFPAY ==
[2022-12-02 17:55] VITALS: BP 116/79; PULSE 73; RESP 18; TEMP 36.7; O2SAT 99; BMI 25.9
--- NOTE | 2022-12-02 18:40 | EXP.UTC ---
Discharge Plan Disposition Patient Disposition: Home, Self-Care Condition: Good Prescriptions Prescriptions: New methylprednisolone [Medrol (Kaveh)] 4 mg tablets,dose pack See Rx Instructions .Route .COMPLEX 6 Days Qty: 21 0RF Rx Instructions: taper pack; No Action levonorgestrel [Mirena] 20 mcg/24 hr (5 years) intrauterine device 1 insert INTRAUTERI ONCE Referrals Follow up/Referrals: Provider,Referral, MD [Primary Care Provider] - See instructions Activity Restrictions/Add. Instructions Additional Instructions/Restrictions: Watch area for signs of infection such as redness, swelling warmth and streaks if seen follow up immediately Start oral steriods tomorrow Over the counter Benadryl may help with itching and rash Follow up with your Family Doctor if no improvement or any worsening of symptoms Clinical Impressions Clinical Impression: Local reaction to insect sting Instructions Patient Instructions: DI for General Allergic Reactions Discharge ED Provider: Carolyn Torre [facility] [place] HPI General Stated complaint: possible spider bite right foot Mode of Arrival: Ambulatory Source of Information: Patient Limitations: No Limitations Time Seen by Provider: 12/02/22 18:40 Description of Symptoms (Recalled from Triage Doc. by RN): PATIENT C/O BITE TO RIGHT FOOT SINCE THIS MORNING HEENT Symptoms (Recalled from RN notes): No Resp Symptoms (Recalled from RN notes): No Skin Symptoms (Recalled from RN notes): Yes MS Symptoms (Recalled from RN notes): No Functional Status (Recalled from RN notes): WNL History of Present Illness Provider Complaint: Patient states that earlier today she was at home and felt something on her right foot and swiped it away States that she noticed a katie on her foot like something bite/stung her States that since then she has been having swelling in her foot and hurts when touched Related Data Home Medications Medication Instructions Recorded Confirmed levonorgestrel 21 mcg/24 hours (8 1 insert intrauterine ONCE 09/25/17 01/25/20 yrs) 52 mg intrauterine device control (Mirena) Previous Rx's Medication Instructions Recorded methylprednisolone 4 mg tablets in See Rx Instructions .Route 12/02/22 a dose pack (Medrol (Kaveh)) .COMPLEX 6 days #21 tabs Allergies Allergy/AdvReac Type Severity Reaction Status Date / Time Penicillins Allergy Verified 01/25/20 13:55 Worker's Comp Is this a Worker's Comp case?: No [facility] Disclaimer: The information contained in this section may have been updated after the patient was seen, as this information can be updated by other users. Social History (System 08/04/17 @ 12:40 by Isela Parker) Smoking Status: Never smoker second hand exposure: No alcohol intake: never substance use type: denies use current occupational status: employed Travel in the last 8 weeks: None household members: spouse and children housing: house current occupational exposures/hazards: No caffeine: Yes ROS Obtained: Yes All systems reviewed & no additional complaints except as documented and Yes Systems reviewed as appropriate & no additional complaints except as documented Constitutional Constitutional: Reports system reviewed and no additional complaints, except as documented, Reports as per HPI and Denies fever(s) ENT Ears, Nose, Mouth, and Throat: Reports system reviewed and no additional complaints, except as documented and Reports as per HPI Cardiovascular Cardiovascular: Reports system reviewed and no additional complaints, except as documented and Reports as per HPI Respiratory Respiratory: Reports system reviewed and no additional complaints, except as documented and Reports as per HPI Gastrointestinal Gastrointestingal: Reports system reviewed and no additional complaints, except as documented and as per HPI Musculoskeletal Musculoskeletal: Reports system reviewed and no additional complaints, except as
[2022-12-02 19:05] VITALS: BP 116/79; PULSE 73; RESP 18; TEMP 36.7; O2SAT 99
== END 2022-12-02 19:41 | disposition home or self-care (01) ==
PROVIDERS: Emergency Provider Nurse Practitioner
DX: T63.481A Toxic effect of venom of other arthropod, accidental (unintentional), initial encounter (principal); M79.672 Pain in left foot; R22.42 Localized swelling, mass and lump, left lower limb
CPT/HCPCS: 96372; 99212; 99214; G0463

== ENCOUNTER 2023-01-23 14:05 | Emergency (ER) | payer BC, SELFPAY ==
[2023-01-23] VITALS (8 sets, daily range): BP systolic 109–167; BP diastolic 63–138; PULSE 66–77; RESP 16–20; TEMP 36.1; O2SAT 97–100; BMI 26.6
--- NOTE | 2023-01-23 14:23 | CT_ITS ---
FINAL REPORT CLINICAL HISTORY: abdominal pain COMPARISON: 07/28/2022 FINDINGS: CT OF THE ABDOMEN AND PELVIS WITH CONTRAST Axial CT images of the abdomen and pelvis were obtained after the administration of oral and iv contrast. Coronal reformatted images were also obtained and reviewed.This study was performed with techniques to keep radiation doses as low as reasonably achievable (ALARA). Individualized dose reduction techniques using automated exposure control or adjustment of mA and/or kV according to the patient's size were employed. Abdomen: The lung bases are clear. The heart is normal in size. The liver has an unremarkable appearance, without evidence of mass or biliary ductal dilatation. The spleen is unremarkable. No adrenal mass is present. The pancreas has an unremarkable appearance. The kidneys are normal, without evidence of mass or hydronephrosis. The aorta is normal in caliber. There is no free fluid or adenopathy. No mass or abnormal fluid collection is seen. Pelvis: The appendix not identified and may be surgically absent. The urinary bladder is unremarkable. No inflammatory process is seen. An IUD is present in the uterus. There is a small amount of pelvic free fluid which may be physiologic or reactive. There is a 5 cm presumed left ovarian cyst. There is no evidence of bowel obstruction. IMPRESSION: 5 cm probable cyst left ovary. Recommend follow-up ultrasound in 6 to 8 weeks. Reviewed, Interpreted and Dictated by Kayode Sanchez III, MD Transcribed by Itzel Rutherford Authenticated and [facility]
[2023-01-23 14:35] LABS: Basophils % 0.5 % (0.1-2.0); Eosinophils # 0.1 K/mm3 (0.0-0.4); Eosinophils % 0.9 % (0.1-12.0); Hematocrit 44.9 % (37.0-47.0); Hemoglobin 14.4 g/dL (12.2-16.2); Lymphocytes # 2.8 K/mm3 (0.7-4.5); Lymphocytes % 34.2 % (10-50); Mean Corpuscular HGB Conc 32.1 g/dL (31.8-35.4); Mean Corpuscular Hemoglobin 30.4 pg (27.0-31.2); Mean Corpuscular Volume 94.7 fl (81-99); Monocytes # 0.3 K/mm3 (0.1-1.0); Monocytes % 3.9 % (1.7-9.3); Neutrophils % 60.5 % (37.0-80.0); Platelet Count 304 K/mm3 (142-424); Red Blood Count 4.74 M/mm3 (4.20-5.40); Red Cell Distribution Width 13.1 % (11.5-17.5); White Blood Count 8.3 K/mm3 (4.8-10.8)
[2023-01-23 14:37] LABS: Chloride 103 mmol/L (98-107); Sodium 139 mmol/L (136-145)
[2023-01-23 14:38] LABS: Potassium 3.5 mmoL/L (3.5-5.1)
[2023-01-23 14:40] LABS: Alanine Aminotransferase 25 U/L (12-78); Albumin Level 4.7 g/dl (3.5-5.0); Albumin/Globulin Ratio 1.3 (1.1-1.8); Alkaline Phosphatase 63 U/L (38-126); Anion Gap 14.5 mEq/L (5-15); Aspartate Amino Transferase 34 U/L (14-36); Bilirubin,Total 0.6 mg/dl (0.2-1.3); Blood Urea Nitrogen 8 mg/dl (7-17); Calcium 9.5 mg/dl (8.4-10.2); Carbon Dioxide 25 mmol/L (22.0-30.0); Creatinine Clearance Estimated 147 mL/min (50-200); Estimated Glomerular Filt Rate 114 ml/min (>60); GFR (African American) 138 ML/MIN (>60); Globulin 3.7 g/dL (1.3-3.2); Glucose 91 mg/dl (74-100); Lipase 56 U/L (23-300); Total Protein,Serum 8.4 g/dl (6.3-8.2)
--- NOTE | 2023-01-23 14:49 | PC.NURSE ---
Pt had IV in RAC, blood drawn but fluids would not flow. Did new IV in LAC and gave meds and fluids.
[2023-01-23 14:53] LABS: HCG Qualitative, Serum Negative (Negative)
--- NOTE | 2023-01-23 14:57 | HMH.EDGENADL ---
Discharge Plan Disposition Patient Disposition: Home, Self-Care Prescriptions Prescriptions: New ondansetron 4 mg tablet,disintegrating 4 mg PO Q8H PRN (Reason: Nausea) Qty: 15 0RF ketorolac 10 mg tablet 10 mg PO Q6H PRN (Reason: Mild Pain (Scale Score 1-4)) Qty: 20 0RF No Action levonorgestrel [Mirena] 20 mcg/24 hr (5 years) intrauterine device 1 insert INTRAUTERI ONCE methylprednisolone [Medrol (Kaveh)] 4 mg tablets,dose pack See Rx Instructions .Route .COMPLEX 6 Days Qty: 21 0RF Rx Instructions: taper pack; Referrals Follow up/Referrals: Derian Snigh [Primary Care Provider] - See instructions Activity Restrictions/Add. Instructions Additional Instructions/Restrictions: Follow-up with your primary care physician within the next few days. Return the emergency department for worsening pain vomiting or any other concerns within the next 8 hours Clinical Impressions Clinical Impression: Ovarian cyst Instructions Patient Instructions: DI for Acute Abdominal Pain Discharge ED Provider: Augie Tolliver General Adult HPI General Chief complaint: Abdominal Pain Stated complaint: LT abd pain Time Seen by Provider: 01/23/23 14:05 Mode of Arrival: Ambulatory Source of Information: Patient Limitations: No Limitations Description of Symptoms (Recalled from ER Triage Doc. by RN): Presents to ED with complaints of LLQ pain that started this morning and has progressively gotten worse. Patient reports taking 800mg ibuprofen and took a hot bath with no reliief. +N. Patient stated hx of tubal with removal of one ovary but unsure of which one. History of Present Illness HPI narrative: 32-year-old female presents with left lower quadrant pain that has gotten progressively worse. She says that she took ibuprofen and took a hot bath this morning history of tubal but removal of ovary and she thinks it was the one on the left. No hematuria dysuria vaginal bleeding or discharge diarrhea or vomiting. Pain does not radiate to flank. Pain is constant dull Related Data Home Medications Medication Instructions Recorded Confirmed levonorgestrel 21 mcg/24 hours (8 1 insert intrauterine ONCE 09/25/17 01/25/20 yrs) 52 mg intrauterine device control (Mirena) Previous Rx's Medication Instructions Recorded methylprednisolone 4 mg tablets in See Rx Instructions .Route 12/02/22 a dose pack (Medrol (Kaveh)) .COMPLEX 6 days #21 tabs ketorolac 10 mg tablet 10 mg PO Q6H PRN Mild Pain (Scale 01/23/23 Score 1-4) #20 tabs ondansetron 4 mg disintegrating 4 mg PO Q8H PRN Nausea #15 tabs 01/23/23 tablet Allergies Allergy/AdvReac Type Severity Reaction Status Date / Time Penicillins Allergy Verified 01/25/20 13:55 PFSH PFSH Disclaimer: The information contained in this section may have been updated after the patient was seen, as this information can be updated by other users. Social History (System 08/04/17 @ 12:40 by Isela Parker) Smoking Status: Never smoker second hand exposure: No alcohol intake: never substance use type: denies use current occupational status: employed Travel in the last 8 weeks: None household members: spouse and children housing: house current occupational exposures/hazards: No caffeine: Yes ROS Obtained: Yes All systems reviewed & no additional complaints except as documented Constitutional Constitutional: Denies fatigue and Denies fever(s) Eyes Eyes: Denies dry eyes ENT Ears, Nose, Mouth, and Throat: Denies dry mouth Cardiovascular Cardiovascular: Denies dyspnea Respiratory Respiratory: Denies dyspnea Gastrointestinal Gastrointestingal: Denies coffee ground emesis Genitourinary Female Genitourinary: Denies hematuria Musculoskeletal Musculoskeletal: Denies joint swelling Integumentary/Breasts Skin/Breast: Denies rash Neurologic Neurologic: Denies confusion Endocrine Endocrine: Denies fatigue Hematologic/Lymphatic Henatologic/
--- NOTE | 2023-01-23 16:07 | US_ITS ---
PROCEDURE INFORMATION: Exam: US Pelvis, Transvaginal Exam date and time: 01/23/2023 4:24 PM Age: 32 years old Clinical indication: Pelvic pain; Prior surgery; Surgery date: 6+ months; Surgery type: Right ovary removed 2018; Additional info: Ovarian torsion, left sided cyst TECHNIQUE: Imaging protocol: Real-time transvaginal pelvic ultrasound with image documentation. Transvaginal imaging was used for better evaluation of the endometrium, adnexa, and/or cervix. COMPARISON: CT ABDOMEN PELVIS W CON 01/23/2023 3:16 PM FINDINGS: Uterus: Uterus measures 9.6 x 5.0 x 5.5 cm. IUD appears to be normally located. Endometrial stripe is 4 mm in thickness. Right ovary/adnexa: Oophorectomy. No adnexal region mass. Left ovary/adnexa: Multiple ovarian cysts measuring up to 3.7 cm. Normal ovarian blood flow. Intraperitoneal space: No free fluid. IMPRESSION: 1. Left ovarian cysts. 2. Normal position of IUD. 3. Right oophorectomy.
== END 2023-01-23 17:08 | disposition home or self-care (01) ==
PROVIDERS: Emergency Provider Emergency Medicine; PCP Pediatrics
DX: N83.202 Unspecified ovarian cyst, left side (principal); R10.32 Left lower quadrant pain; Z97.5 Presence of (intrauterine) contraceptive device
CPT/HCPCS: 74177; 76830; 80053; 83690; 84703; 85025; 96361; 96374; 96375; 99285; J2405; Q9967

== ENCOUNTER → 2023-03-27 13:05 | Outpatient (CLI) | payer BC, SELFPAY ==
--- NOTE | 2023-03-27 13:09 | US_ITS ---
PROCEDURE: US TRANSVAGINAL CLINICAL INDICATION: pelvic pain/ lower left quadrant pain COMPARISON: No exams were available for comparison FINDINGS: Transvaginal sonographic images of the pelvis were obtained. UTERUS: 9.0 cm x 5.6 cmx 4.5 cm with a combined endometrial thickness of 3.9mm. Uterus is anteverted. An IUD is seen within the uterine cavity in the correct position. LEFT OVARY: 5.0 cmx3.3 cmx4.1cm with a volume of 35.5ml. There are multiple small follicles within the left ovary. There is a dominant follicle measuring 1.8 cm x 1.7 cm x 2.0 cm. RIGHT OVARY: Surgically absent. Left ovary is seen and appears normal. Doppler flow is seen. There is no fluid in the cul-de-sac. IMPRESSION: 1. Anteverted uterus normal in shape and upper limits in size. 2. Within the uterine cavity is an IUD in the correct position. 3. The left ovary is seen and appears increased in size. There are multiple small follicles. There is a dominant follicle measuring 2 cm. 4. Right ovary is surgically absent. 5. No fluid in the cul-de-sac. Dictated by: Rajiv Brewer MD 03/28/2023 09:23 Rajiv Brewer MD in OV 03/28/2023 09:23
== END ==
PROVIDERS: PCP Pediatrics; Visit Provider Nurse Practitioner Obstetrics & Gynecology
DX: R10.32 Left lower quadrant pain (principal); R10.2 Pelvic and perineal pain
CPT/HCPCS: 76830

== ENCOUNTER → 2023-04-08 13:57 | Outpatient (CLI) | payer BC, SELFPAY ==
--- NOTE | 2023-04-08 14:01 | MM_ITS ---
PROCEDURE INFORMATION: Exam: US Left Breast, Complete MG Bilateral Diagnostic Breast Tomosynthesis Exam date and time: 04/08/2023 2:39 PM Age: 33 years old Clinical indication: Left breast palpable lump; and breast pain TECHNIQUE: Imaging protocol: Complete ultrasound of all four quadrants of the left breast and the retroareolar regions, including ultrasound of the axilla when performed. Bilateral Diagnostic tomosynthesis and 2D mammography including computer-aided detection (CAD) when performed. Unilateral or bilateral exam. COMPARISON: US BREAST LT COMPLETE 12/23/2019 9:04 AM FINDINGS: MAMMOGRAPHY: The breast tissue is composed of scattered areas of fibroglandular density. There is no stellate mass, architectural distortion or suspicious microcalcifications in either breast to suggest malignancy. A skin marker is placed over an area of palpable concern in the left 9 o'clock axis. This corresponds to a superficial well-circumscribed 1.5 cm round mass. No skin thickening or axillary adenopathy. ULTRASOUND: Sonographic images of the left breast including the retroareolar region, all 4 quadrants and the axilla demonstrates a superficial heterogeneous hypoechoic well-circumscribed predominantly solid mass in the 9 o'clock axis 8 cm from the nipple. This corresponds to the patient's complaint of a palpable abnormality. It measures 1.6 x 1.8 x 0.9 cm and is just deep to the overlying skin. This does not appear to be cutaneous however in location. A similar appearing slightly heterogeneous hypoechoic strongly solid mass is noted in the left 3 o'clock axis 2 cm from the nipple measuring 0.7 x 0.3 x 0.8 cm in dimension. A third slightly heterogeneous hypoechoic solid appearing mass is noted in the left 9 o'clock axis 6 cm from the nipple measuring 0.4 x 0.3 x 0.6 cm in dimension. Few scattered subcentimeter cysts are noted in the left upper breast.. No architectural distortion or acoustical shadowing. No skin thickening or axillary adenopathy. IMPRESSION: Palpable abnormality in the left breast corresponds to 1 of 3 solid appearing masses best seen on sonography. The findings likely represent multiple fibroadenomas or multiple focal areas of fibrocystic change. A six-month follow-up left breast ultrasound is recommended to ensure stability over time unless otherwise clinically indicated. Alternatively, should a more immediate tissue diagnosis be desired, ultrasound-guided core biopsy of the dominant palpable abnormality may be obtained with short-term radiographic follow-up of the remaining 2 smaller masses should the biopsy-proven benign ASSESSMENT: BI-RADS Category 3: Probably benign
== END ==
LOC: RAD 13:59
PROVIDERS: PCP Pediatrics; Visit Provider Nurse Practitioner Obstetrics & Gynecology
DX: N64.4 Mastodynia (principal); N63.20 Unspecified lump in the left breast, unspecified quadrant
CPT/HCPCS: 76641; 77062; 77066; G0279

== ENCOUNTER → 2023-04-27 08:22 | Outpatient (CLI) | payer BC, SELFPAY ==
--- NOTE | 2023-04-27 08:29 | US_ITS ---
FINAL REPORT CLINICAL HISTORY: breast mass -- US GUIDED CORE BX-- LEFT BREAST 9:00-- DR. KELI REED FINDINGS: ULTRASOUND-GUIDED LEFT BREAST CORE BIOPSY TECHNIQUE: Limited images were obtained to localize region of interest. The left breast was prepped in a routine sterile fashion and locally anesthetized with 1% lidocaine. Standard written informed consent was obtained. Initial attempts to aspirate contents from the lesion were unsuccessful. However the content was favored to be necrotic or highly viscous fluid. The biopsy needle was positioned within the outer periphery of the lesion. A total of 4 passes were made with a 16 gauge core biopsy needle. Tissue fragments were highly fragmented. Lesion was felt to be of dermal etiology. Because of this, no clip was placed. Procedure was well tolerated . CONCLUSION: 1. Technically successful ultrasound guided core biopsy of left breast lesion as above. 2. Biopsy marker clip deployed Histopathology results reveal no evidence of malignancy with keratin fragments suggestive of potential epidermal inclusion cyst.. Pathology is concordant with mammographic findings. Recommend 6 month sonographic follow-up as routine benign postbiopsy surveillance. Authenticated and ERN
== END ==
LOC: RAD 08:23
PROVIDERS: PCP Pediatrics; Visit Provider Nurse Practitioner Obstetrics & Gynecology
DX: R92.8 Other abnormal and inconclusive findings on diagnostic imaging of breast (principal); N63.20 Unspecified lump in the left breast, unspecified quadrant
CPT/HCPCS: 19083

== ENCOUNTER → 2023-06-13 09:22 | Outpatient (CLI) | payer BC, SELFPAY ==
[2023-06-13 09:35] LABS: Basophils % 0.4 % (0.1-2.0); Eosinophils # 0.1 K/mm3 (0.0-0.4); Eosinophils % 1.7 % (0.1-12.0); Hematocrit 44.9 % (37.0-47.0); Hemoglobin 14.4 g/dL (12.2-16.2); Lymphocytes # 2.4 K/mm3 (0.7-4.5); Lymphocytes % 34.5 % (10-50); Mean Corpuscular HGB Conc 32.1 g/dL (31.8-35.4); Mean Corpuscular Hemoglobin 30.8 pg (27.0-31.2); Mean Corpuscular Volume 95.8 fl (81-99); Mean Platelet Volume 7.7 fl (7.4-10.4); Monocytes # 0.4 K/mm3 (0.1-1.0); Neutrophils # 4.1 K/mm3 (1.8-7.8); Neutrophils % 58.3 % (37.0-80.0); Platelet Count 280 K/mm3 (142-424); Red Blood Count 4.69 M/mm3 (4.20-5.40); Red Cell Distribution Width 12.5 % (11.5-17.5)
[2023-06-13 10:57] LABS: Anion Gap 11.3 mEq/L (5-15); Blood Urea Nitrogen 10 mg/dl (7-17); Calcium 9.3 mg/dl (8.4-10.2); Carbon Dioxide 27 mmol/L (22.0-30.0); Chloride 102 mmol/L (98-107); Estimated Glomerular Filt Rate 95 ml/min (>60); GFR (African American) 115 ML/MIN (>60); Glucose 85 mg/dl (74-100); Potassium 4.3 mmoL/L (3.5-5.1); Sodium 136 mmol/L (136-145)
== END ==
PROVIDERS: PCP Pediatrics; Visit Provider Surgery
DX: Z01.812 Encounter for preprocedural laboratory examination (principal); N63.25 Unspecified lump in the left breast, overlapping quadrants
CPT/HCPCS: 36415; 80048; 85025

== ENCOUNTER 2023-06-18 08:40 | Day surgery (SDC) | payer BC, SELFPAY ==
[2023-06-17 12:29] VITALS: BMI 25.7
[2023-06-18] VITALS (9 sets, daily range): BP systolic 88–133; BP diastolic 48–86; PULSE 65–83; RESP 12–18; TEMP 36.4–36.9; O2SAT 93–99
[2023-06-18 09:01] LABS: Urine Pregnancy, HCG Qual. Negative (Negative)
--- NOTE | 2023-06-18 10:11 | EXP.ANES.CKL ---
[facility] Disclaimer: The information contained in this section may have been updated after the patient was seen, as this information can be updated by other users. Medical History (Updated 06/18/23 @ 08:58 by Anna Vigil RN) No significant past medical history Surgical History History of appendectomy History of bilateral salpingectomy History of right oophorectomy Family History Grandmother Cancer Maternal-breast Social History Smoking Status: Never smoker second hand exposure: No alcohol intake: never substance use type: denies use current occupational status: employed Travel in the last 8 weeks: None household members: spouse and children housing: house current occupational exposures/hazards: No caffeine: Yes [facility] Anesthesia Checklist Patient Identification Patient Identification: Arm Band, Family and Verbal (Name & ) Structural Data Admitted From: Home Planned Operative Procedure/s: General mass excision left breast Consent for Planned Operative Procedure(s) Verified: Yes Verified Documents: Surgical Consent and History and Physical NPO Status Verified Time NPO: 20:00 Chart Verification Results Verified: CBC, BMP and HCG Additional verifications Patient : No Anesthesia Reactions: No Hx Blood Transfusions: No Blood Transfusion Reaction: No Cardiovascular Assessment Heart Sounds: S1 & S2 Pulse Rhythm: Irregular Peripheral Edema: No Airway Assessment Mallampati Score:: Class I C-Spine Mobility Assessed: Yes (FROM) TMJ Mobility Assessed: Yes Dentition: Good Dentition (Nothing loose per pt.) Neurological Assessment Level of Consciousness: Awake, Alert, Appropriate and Follows Commands Hx Seizures: No Numbness or tingling in extremities: No Anesthesia Plan Anesthesia Risk discussed: Yes Anesthesia Plan: Verified ASA Class: I Anesthesia Type: General
--- NOTE | 2023-06-18 10:46 | P.OP_ITS ---
Date of procedure: 06/18/23 Pre-op Diagnosis:: Left medial breast mass (likely 1.6 cm complex sebaceous cyst) Post-op Diagnosis:: same Procedure performed:: Excision of 1.6 cm left medial breast mass Surgeon:: Mike Davis MD Anesthesia: LMA Estimated blood loss (mL): 5 Operative findings:: Lesion excised in toto Operative note:: After informed consent was obtained the patient was taken to the operating room and placed in the supine position. General anesthesia with laryngeal mask airway was achieved. Her left breast was prepped and draped in a sterile fashion. After infiltration with local anesthetic an elliptical incision was m jayne around the lesion. The deep subcutaneous tissue was dissected with electrocautery. The lesion was excised in toto and passed off for pathologic evaluation. Electrocautery was utilized to achieve hemostasis. The wound was irrigated and skin was then reapproximated with interrupted 4-0 Monocryl in a mattress fashion to facilitate hemostasis. Dressings were applied and the patient was transferred to recovery in stable condition after removal of her laryngeal mask airway. Condition: stable Disposition: PACU Specimens:: Left medial breast mass Complications:: No immediate
--- NOTE | 2023-06-18 10:57 | EXP.ANES.I ---
[facility] Anesthesia Record Part I Anesthesia Record I Intake, IV Amount: 400 Hydration: Adequate Estimated blood loss (mL): 10 Urine output (mL): 0 Blood Products used (#): none Blood Pressure: 88/48 SaO2: 93 Pulse Rate: 72 Airway Patency: Patent Respiratory Rate: 12 Temperature: 97.5 F Patient is:: Awake, Drowsy and Stable Stable to PACU at:: 12:00
[2023-06-19 13:57] VITALS: BP 110/69; PULSE 71; RESP 18; TEMP 36.6; O2SAT 99
--- NOTE | 2023-06-19 13:57 | EXP.ANES.II ---
[facility] Anesthesia Record Part II Anesthesia Record Part II Discharge Time: 11:25 Destination: Surgical Day Care (OP Surgery) PACU nurse assessment reviewed?: Yes Patient Condition:: Good Anesthesia Complications:: None Swallowing reflex intact?: Yes Airway Patency: Patent Cyanosis?: No Blood Pressure: 110/69 SaO2: 99 Respiratory Rate: 18 Pulse Rate: 71 Temperature: 97.8 F Mental Status: Alert & Oriented Pain level:: 0 Nausea and/or vomitting:: None Intake, IV Amount: 0 Hydration: Adequate
== END 2023-06-18 12:00 | disposition home or self-care (01) ==
PROVIDERS: PCP Pediatrics; Visit Provider Surgery
PROC: (CPT 19120; principal; 2023-06-18 10:00)
DX: L72.0 Epidermal cyst (principal)
CPT/HCPCS: 19120; 81025; 96374; J2405

== ENCOUNTER 2024-02-28 20:27 | Emergency (ER) | payer BC, SELFPAY ==
[2024-02-28 20:28] VITALS: BP 169/105; PULSE 84; RESP 18; TEMP 36.5; O2SAT 98; BMI 29.2
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
[2024-02-28] MEDS: TET/DIPHTH/PERT-ADULT 0.5ML SYRINGE 0.5 ML IM (20:48)
[2024-02-28] MEDS: IBUPROFEN 600 MG TABLET PO (20:48)
[2024-02-28] MEDS: LIDOCAINE 1% 20ML MDV 20 ML SQ (20:48)
[2024-02-28] MEDS: ACETAMINOPHEN 500MG TAB 1000 MG PO (20:50)
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
--- NOTE | 2024-02-28 22:23 | PC.NURSE ---
MD Escalante at bedside at this time repairing laceratrion
[2024-02-28 22:43] VITALS: BP 124/86; PULSE 70; RESP 16; TEMP 36.6; O2SAT 98
== END 2024-02-28 22:47 | disposition home or self-care (01) ==
PROVIDERS: Emergency Provider Emergency Medicine
DX: S01.81XA Laceration without foreign body of other part of head, initial encounter (principal); W22.8XXA Striking against or struck by other objects, initial encounter; Z23 Encounter for immunization
CPT/HCPCS: 12052; 70486; 90471; 90715; 99284

== ENCOUNTER 2024-03-20 10:48 | Emergency (ER) | payer BC, SELFPAY ==
[2024-03-20 11:19] VITALS: BP 142/115; PULSE 92; RESP 18; TEMP 36.9; O2SAT 99; BMI 26.6
[2024-03-20 11:27] LABS: UTC Strep Screen (Rapid) Negative (Negative)
--- NOTE | 2024-03-20 11:33 | ED_ITS ---
Discharge Plan Disposition Patient Disposition: Home, Self-Care Condition: Good Prescriptions Prescriptions: New azithromycin [Zithromax] 250 mg tablet 250 mg PO UD DOSE PK Qty: 6 0RF Rx Instructions: Take two (2) tablets today, then one (1) tablet days #2 thru #5 [id number]-[id number] [Bromfed DM] 2-30-10 mg/5 mL Syrup 5 ml PO Q6H PRN (Reason: Cough) Qty: 240 0RF ondansetron 4 mg Tablet,Disintegrating 4 mg PO Q8H PRN (Reason: Nausea) Qty: 12 0RF No Action levonorgestrel [Mirena] 20 mcg/24 hr (5 years) intrauterine device 1 insert INTRAUTERI ONCE Referrals Follow up/Referrals: Provider,Referral, MD [Primary Care Provider] - See instructions Activity Restrictions/Add. Instructions Additional Instructions/Restrictions: Drink plenty of fluids. Take tylenol or ibuprofen for pain or fever. Take the medications as directed. Follow up with your regular doctor. GO TO THE ER FOR ANY WORSENING SYMPTOMS Clinical Impressions Clinical Impression: Acute viral syndrome, Pharyngitis Stand Alone Forms Stand Alone Forms: Work/School Release Instructions Patient Instructions: Coronavirus Disease 2019, Preventing the Spread of Coronavirus Discharge Instructions Print Language Print Language: Indonesian Discharge ED Provider: Amado Menard [facility] General Stated complaint: headache sore throat fever 102 body ache Mode of Arrival: Ambulatory Source of Information: Patient Limitations: No Limitations Time Seen by Provider: 03/20/24 11:25 Description of Symptoms (Recalled from Triage Doc. by RN): Patient reports fever, nausea, sore throat and chest burning. HEENT Symptoms (Recalled from RN notes): Yes Resp Symptoms (Recalled from RN notes): No Skin Symptoms (Recalled from RN notes): No MS Symptoms (Recalled from RN notes): No Functional Status (Recalled from RN notes): wnl Related Data Home Medications ?Medication ?Instructions ?Recorded ?Confirmed levonorgestrel 21 mcg/24 hr (up to 1 insert intrauterine ONCE 09/25/17 06/24/23 8 years) 52 mg intrauterine device control (Mirena) Previous Rx's ?Medication ?Instructions ?Recorded azithromycin 250 mg tablet 250 mg PO UD DOSE PK #6 tabs 03/20/24 (Zithromax) hadyktcogvbdxqc-mvmqibodszvxyfm-YZ 5 ml PO Q6H PRN Cough #240 mL 03/20/24 2 mg-30 mg-10 mg/5 mL oral syrup (Bromfed DM) ondansetron 4 mg disintegrating 4 mg PO Q8H PRN Nausea #12 tabs 03/20/24 tablet Allergies Allergy/AdvReac Type Severity Reaction Status Date / Time Penicillins Allergy Verified 06/24/23 15:14 Worker's Comp Is this a Worker's Comp case?: No [facility] Disclaimer: The information contained in this section may have been updated after the patient was seen, as this information can be updated by other users. Medical History (Updated 03/20/24 @ 12:01 by Amado Menard APRN) No significant past medical history Left breast mass Surgical History (Updated 06/24/23 @ 15:15 by JERSON Lambert) History of breast lump/mass excision History of appendectomy History of bilateral salpingectomy History of right oophorectomy Family History Grandmother Cancer Maternal-breast Social History Smoking Status: Never smoker second hand exposure: No alcohol intake: never substance use type: denies use current occupational status: employed Travel in the last 8 weeks: None household members: spouse and children housing: house current occupational exposures/hazards: No caffeine: Yes ROS Obtained: Yes All systems reviewed & no additional complaints except as documented Constitutional Constitutional: Reports chills and Reports fever(s) Eyes Eyes: Denies eye discharge ENT Ears, Nose, Mouth, and Throat: Reports as per HPI Cardiovascular Cardiovascular: Denies chest pain Respiratory Respiratory: Denies chest congestion and Reports cough Gastrointestinal Gastrointestingal: Reports nausea; Denies abdominal pain, constipation, cramping, diarrhea or vomiting Musculoskeletal Musculoskeletal: Denies arthralgias Integumentary/Breasts Skin/Breast: Denies rash Neurologic Neurologic: Denies paresthesias Physical Exam General General appearance: alert and in no apparent distress Head Head exam: atraumatic, normocephalic and normal inspection Eye Eye exam: Present normal appearance, PERRL and EOMI ENT ENT exam: Present mucous membranes moist and normal external ear exam Expanded ENT Exam TM/Canal exam: Bilateral TM: erythema and bulging Nose exam: Absent sinus tenderness Mouth exam: Present normal external inspection; Absent drooling Teeth exam: Present normal inspection Throat exam: Present tonsillar erythema, tonsillomegaly and tonsillar exudate Neck Neck exam: Present normal inspection, full ROM and trachea midline; Absent tenderness, meningismus or lymphadenopathy Chest Chest inspection: Present normal inspection and symmetric chest wall rise; Absent tenderness Respiratory Respiratory exam: Present normal lung sounds bilaterally; Absent respiratory distress, wheezes, stridor or accessory muscle use Cardiovascular Cardiovascular exam: Present regular rate and normal rhythm; Absent systolic murmur or diastolic murmur Abdominal Exam Abdominal exam: Present soft and normal bowel sounds; Absent distention, tenderness, guarding, rebound or rigidity Extremities Exam Extremities exam: Present normal inspection and normal capillary refill; Absent calf tenderness Back Exam Back exam: Present normal inspection and full ROM; Absent tenderness, CVA tenderness (R) or CVA tenderness (L) Neurological Exam Neurological exam: Present alert, oriented X3 and CN II-XII intact Psychiatric Psychiatric exam: Present normal affect and normal mood Skin Skin exam: Present warm, dry, intact and normal color Medical Decision Making Medical Records Medical records reviewed: No I reviewed the patient's medical records. Jd Inquiry Pt receiving controlled substance: No Vital Signs: 03/20/24 11:19 Temperature 98.5 F Temperature Source Oral Pulse Rate [Radial] 92 H Respiratory Rate 18 Blood Pressure [Right Arm] 142/115 H Blood Pressure Mean [Right Arm] 124 Blood Pressure Source [Right Arm] Automatic Cuff Blood Pressure Position [Right Arm] Sitting 02 Sat by Pulse Oximetry 99 Oxygen Delivery Method Room Air Lab Data Lab results reviewed: Yes I reviewed the patient's lab results. Lab Results 03/20/24 11:15: Strep Scn Rapid Clinic Negative Orders (Tests/Meds): ORDERS Category Date Time Status Strep Screen Confirmation Stat Micro 03/20/24 11:15 Received
[2024-03-20 12:07] VITALS: BP 142/115; PULSE 92; RESP 18; TEMP 36.9; O2SAT 99
[2024-03-20 12:14] LABS: Coronavirus 19, PCR Not Detected (NotDetected); Influenza A, PCR Not Detected (NotDetected); Influenza B, PCR Not Detected (NotDetected)
== END 2024-03-20 12:10 | disposition home or self-care (01) ==
PROVIDERS: Emergency Provider Nurse Practitioner Family
DX: J02.9 Acute pharyngitis, unspecified (principal); R50.9 Fever, unspecified; R11.0 Nausea; R09.89 Other specified symptoms and signs involving the circulatory and respiratory systems; B34.9 Viral infection, unspecified
CPT/HCPCS: 87636; 87880; 99212; 99214; G0463

== ENCOUNTER 2024-03-21 14:58 | Emergency (ER) | payer BC, SELFPAY ==
[2024-03-21 14:59] VITALS: BP 165/88; PULSE 105; RESP 25; TEMP 36.5; O2SAT 99; BMI 26.9
--- NOTE | 2024-03-21 14:59 | ECG_ITS ---
APPROVED REPORT Exam: Resting ECG HR:102 bpm ECG Measurements Heart Rate 102 AXES OH 137 P 82 QRSd 93 QRS 96 QT 342 T 12 QTc 400 Conclusion SINUS TACHYCARDIA POSSIBLE RIGHT ATRIAL ENLARGEMENT [0.25mV P-WAVE] BORDERLINE RIGHT AXIS DEVIATION [QRS AXIS > 90] NONSPECIFIC ST & T-WAVE ABNORMALITY ABNORMAL RHYTHM ECG Electronically signed by : CRISTOBAL BATISTA, 03/21/2024 23:13:09
--- NOTE | 2024-03-21 15:02 | ECG_ITS ---
APPROVED REPORT Exam: Resting ECG HR:102 bpm ECG Measurements Heart Rate 102 AXES AL 154 P 74 QRSd 93 QRS 92 QT 352 T -1 QTc 411 Conclusion SINUS TACHYCARDIA POSSIBLE RIGHT ATRIAL ENLARGEMENT [0.25mV P-WAVE] BORDERLINE RIGHT AXIS DEVIATION [QRS AXIS > 90] ST DEVIATION AND MODERATE T-WAVE ABNORMALITY, CONSIDER INFERIOR ISCHEMIA [-0.1+ mV T-WAVE IN II/aVF] ABNORMAL ECG Electronically signed by : CRISTOBAL BATISTA, 03/21/2024 23:12:48
--- NOTE | 2024-03-21 15:06 | ED_ITS ---
<Statement entered by Henry Miller MD - 03/21/24 21:53> I was consulted by the TARAS, and we discussed the complexity of the problems being addressed. I approved the treatment and management plan for this patient's care in the emergency department, thus performing a substantive portion of the medical decision making. Henry Miller MD Discharge Plan Disposition Patient Disposition: Home, Self-Care Condition: Good Prescriptions Prescriptions: New prednisone 50 mg tablet 50 mg PO DAILY 5 Days Qty: 5 0RF cbsyrbajjjppykl-bcfssawte-UP [Bromfed DM] 2-30-10 mg/5 mL syrup 5 ml PO Q4H PRN (Reason: sinus symptoms) Qty: 118 0RF albuterol sulfate 90 mcg/actuation HFA aerosol inhaler 1 inh inhalation Q4H PRN (Reason: shortness of breath or wheezing) Qty: 6.7 0RF No Action levonorgestrel [Mirena] 20 mcg/24 hr (5 years) intrauterine device 1 insert INTRAUTERI ONCE azithromycin [Zithromax] 250 mg tablet 250 mg PO UD DOSE PK Qty: 6 0RF Rx Instructions: Take two (2) tablets today, then one (1) tablet days #2 thru #5 suiwawobtglktmg-kevvhpuhr-JI [Bromfed DM] 2-30-10 mg/5 mL Syrup 5 ml PO Q6H PRN (Reason: Cough) Qty: 240 0RF ondansetron 4 mg Tablet,Disintegrating 4 mg PO Q8H PRN (Reason: Nausea) Qty: 12 0RF Referrals Follow up/Referrals: Provider,Referral, [Primary Care Provider] - See instructions Activity Restrictions/Add. Instructions Additional Instructions/Restrictions: At this time it was felt you are safe to be discharged home. If new or worsening symptoms please do not hesitate to return the emergency department. Please take your cough medicine as prescribed and follow-up with Dr. Vincent tomorrow at 11 AM as discussed. With regards to the lymph nodes that were found that were slightly enlarged today I suspect they are inflamed from your virus however please have your family doctor continue to monitor this. Clinical Impressions Clinical Impression: URI (upper respiratory infection), Lymphadenopathy, Laryngitis, Chest pressure, Nonspecific ST-T wave electrocardiographic changes Print Language Print Language: Iranian Discharge ED Provider: Henry Miller General Adult HPI <GIOVANNA Hall - Last Filed: 03/21/24 18:30> General Chief complaint: Chest Pain Stated complaint: chest pain Time Seen by Provider: 03/21/24 15:06 History of Present Illness HPI narrative: Patient presents for evaluation of chest pain. Patient has had 3 days of of congestion sore throat no fever some diarrhea but no shortness of breath hemoptysis hematochezia melena hematemesis. Patient was seen in the urgent treatment center yesterday and had COVID flu and strep swabs performed which were all negative. However today she woke up and has had chest tightness that is been persistent all day with no aggravating or relieving factors. She was concerned so came to the ER for evaluation. Related Data Home Medications ?Medication ?Instructions ?Recorded ?Confirmed levonorgestrel 21 mcg/24 hr (up to 1 insert intrauterine ONCE 09/25/17 06/24/23 8 years) 52 mg intrauterine device control (Mirena) Previous Rx's ?Medication ?Instructions ?Recorded azithromycin 250 mg tablet 250 mg PO UD DOSE PK #6 tabs 03/20/24 (Zithromax) flazndkslexenzz-ipbnailglygxvqk-AK 5 ml PO Q6H PRN Cough #240 mL 03/20/24 2 mg-30 mg-10 mg/5 mL oral syrup (Bromfed DM) ondansetron 4 mg disintegrating 4 mg PO Q8H PRN Nausea #12 tabs 03/20/24 tablet albuterol sulfate 90 mcg/actuation 1 inh inhalation Q4H PRN shortness 03/21/24 aerosol inhaler of breath or wheezing #6.7 grams hkbtmfxhplzqwpv-haveouzfkipjmwu-JN 5 ml PO Q4H PRN sinus symptoms 03/21/24 2 mg-30 mg-10 mg/5 mL oral syrup #118 mL (Bromfed DM) prednisone 50 mg tablet 50 mg PO DAILY 5 days #5 tabs 03/21/24 Allergies Allergy/AdvReac Type Severity Reaction Status Date / Time Penicillins Allergy Verified 06/24/23 15:14 PFSH <GIOVANNA Hall - Last Filed: 03/21/24 18:30> PFS Disclaimer: The information contained in this section may have been updated after the patient was seen, as this information can be updated by other users. Medical History (Updated 03/21/24 @ 16:51 by Henry Miller MD) No significant past medical history Left breast mass Surgical History (Updated 06/24/23 @ 15:15 by JERSON Lambert) History of breast lump/mass excision History of appendectomy History of bilateral salpingectomy History of right oophorectomy Family History Grandmother Cancer Maternal-breast Social History Smoking Status: Never smoker second hand exposure: No alcohol intake: never substance use type: denies use current occupational status: employed Travel in the last 8 weeks: None household members: spouse and children housing: house current occupational exposures/hazards: No caffeine: Yes <GIOVANNA Hall - Last Filed: 03/21/24 18:30> ROS Obtained: Yes Systems reviewed as appropriate & no additional complaints except as documented Physical Exam <GIOVANNA Hall - Last Filed: 03/21/24 18:30> General General appearance: alert and in no apparent distress Respiratory Respiratory exam: Present normal lung sounds bilaterally Cardiovascular Cardiovascular exam: Present tachycardia Neurological Exam Neurological exam: Present alert and oriented X3 Medical Decision Making <GIOVANNA Hall - Last Filed: 03/21/24 18:30> Medical Records Medical records reviewed: Yes I reviewed the patient's medical records. Vital Signs: 03/21/24 14:59 03/21/24 15:30 03/21/24 17:09 Temperature 97.7 F 97.7 F Temperature Source Oral Pulse Rate 89 88 Pulse Rate [Right] 105 H Respiratory Rate 25 H 15 16 Blood Pressure 147/106 H 111/79 Blood Pressure [Right Arm] 165/88 H Blood Pressure Mean [Right Arm] 113 Blood Pressure Source Automatic Cuff Blood Pressure Source [Right Arm] Automatic Cuff Blood Pressure Position Supine 02 Sat by Pulse Oximetry 99 99 Oxygen Delivery Method Room Air Room Air Room Air Lab Data Lab results reviewed: Yes I reviewed the patient's lab results. Lab Results 03/21/24 15:00: WBC 6.4, RBC 4.63, Hgb 14.5, Hct 45.1, MCV 97.5, MCH 31.3 H, MCHC 32.1, RDW 12.9, Plt Count 330, MPV 8.0, Neut % (Auto) 54.1, Lymph % (Auto) 36.9, [place] % (Auto) 6.0, Eos % (Auto) 1.9, Baso % (Auto) 1.1, Neut # (Auto) 3.5, Lymph # (Auto) 2.4, [place] # (Auto) 0.4, Eos # (Auto) 0.1, Baso # (Auto) 0.1, Sodium 139, Potassium 3.3 L, Chloride 104, Carbon Dioxide 28, Anion Gap 10.3, B UN 6 L, Creatinine 0.60, Estimated GFR 113, Est GFR ( Amer) 137, Glucose 83, Calcium 9.2, Magnesium 2.0, Total Bilirubin 0.5, AST 29, ALT 23, Alkaline Phosphatase 53, Troponin I < 0.01, NT-Pro-B Natriuret Pep 21.2, Total Protein 8.2, Albumin 4.3, Globulin 3.9 H, Albumin/Globulin Ratio 1.1, Serum HCG, Qual Negative 03/21/24 15:10: VBG pH 7.35, VBG pCO2 46.7, VBG pO2 33.1, VBG HCO3 25.4, VBG Total CO2 26.9, VBG O2 Saturation 63.2, VBG Base Excess -0.1, VBG Lactic Acid 2.3 H 03/21/24 15:00 03/21/24 15:00 Orders (Tests/Meds): ED MEDICATIONS Discontinued Medications Generic Name Dose Route Start Last Admin Trade Name Skip PRN Reason Stop Dose Admin Acetaminophen 1,000 mg 03/21/24 15:03/21/24 15:53 Acetaminophen 1,000mg/100ml Vial IV 03/21/24 15:10 1,000 mg ONCE ONE Administration Albuterol/Ipratropium 3 ml 03/21/24 15:03/21/24 15:53 Ipratropium/Albuterol 3 Ml Neb 03/21/24 15:10 3 ml ONCE ONE Administration Aspirin 324 mg 03/21/24 15:23 03/21/24 15:54 Aspirin 81mg Chewable Tablet PO 03/21/24 15:24 324 mg ONCE ONE Administration Dexamethasone Sodium Phosphate 10 mg 03/21/24 15:09 03/21/24 15:54 Dexamethasone 4mg/Ml 5ml Mdv IV 03/21/24 15:10 10 mg ONCE ONE Administration Lactated Ringer's 1,000 mls @ 999 mls/hr 03/21/24 15:09 03/21/24 15:53 Lactated Ringer's 1000 Ml Bag IV 03/21/24 16:09 999 mls/hr .Q1H1M ONE Administration Iopamidol 70 ml 03/21/24 15:16 Iopamidol-370 (76%);100ml Bottle IV 03/21/24 15:17 ONCE ONE Ketorolac Tromethamine 15 mg 03/21/24 15:03/21/24 15:53 Ketorolac 30mg/Ml Vial IV 03/21/24 15:10 15 mg ONCE ONE Administration Sodium Chloride 50 ml 03/21/24 15:16 0.9 % Sodium Chloride 50 Ml Vial IV 03/21/24 15:17 ONCE ONE Sodium Chloride 10 ml 03/21/24 15:16 Sodium Chloride 0.9% 10ml Syr (Rad Only) IV 04/20/24 15:15 NEEDED PRN Maintain IV Site ORDERS Category Date Time Status CT angio chest PE protocol Stat Cat Scan 03/21/24 15:08 Completed POCUS Point of Care (ER Only) Stat Exams 03/21/24 16:08 Completed BNP [NT Pro Brain Natriuretic Pep.] Stat Lab 03/21/24 15:00 Completed CBC w/Auto Diff [Complete Blood Count Auto Diff] Stat Lab 03/21/24 15:00 Completed CMP [Comprehensive Metabolic Panel] Stat Lab 03/21/24 15:00 Completed HCG Qualitative, Serum Stat Lab 03/21/24 15:00 Completed Lactic Acid Stat Lab 03/21/24 15:09 Ordered Magnesium Stat Lab 03/21/24 15:00 Completed Trop I [Troponin I] Stat Lab 03/21/24 15:00 Completed VBG [Venous Blood Gas] Stat RT 03/21/24 15:10 Completed Medical Decision Narrative: In summary patient is a 4-year-old female who presents to the emergency department for evaluation of chest pain. Patient is normotensive tachycardic but with an O2 sat of 99% a respiratory rate of 25 upon arrival, afebrile. Physical exam is remarkable for nasal mucosal congestion and a hoarse voice a course bronchial cough but breath sounds heard to bases with no adventitious sounds, normal heart sounds. Differential diagnosis includes viral upper respiratory tract infection versus bronchitis versus ACS versus PE etc. Initial workup will be conducted with hematologic labs CT scan PE protocol twelve-lead EKG. Initial interventions include crystalloid bolus Toradol Tylenol DuoNeb Decadron. Initial workup reviewed by me shows that her hematologic labs are nonactionable her initial troponin is undetectable however her EKG shows ST depression but we do not have comparison to see if this is new. Given that I had an interactive discussion with cardiology about patient management. Dr. Vincent reviewed her EKG remotely and wishes to see her in the office tomorrow at 11 AM but does not feel that any further workup is required in the emergency department. Upon repeat evaluation patient actually has now not tachycardic with a heart rate of 89 and now her respiratory rate is 15. She reports some improvement in her chest tightness after initial intervention. Given that patient is appropriate for discharge with prescription for steroids metered-dose inhaler and Bromfed, referral to cardiology in the morning, and follow-up with your PCP for the nonspecific bilateral axillary lymphadenopathy. <Henry Miller MD - Last Filed: 03/21/24 15:28> Jd Inquiry Pt receiving controlled substance: No Vital Signs: 03/21/24 14:59 03/21/24 15:30 03/21/24 17:09 Temperature 97.7 F 97.7 F Temperature Source Oral Pulse Rate 89 88 Pulse Rate [Right] 105 H Respiratory Rate 25 H 15 16 Blood Pressure 147/106 H 111/79 Blood Pressure [Right Arm] 165/88 H Blood Pressure Mean [Right Arm] 113 Blood Pressure Source Automatic Cuff Blood Pressure Source [Right Arm] Automatic Cuff Blood Pressure Position Supine 02 Sat by Pulse Oximetry 99 99 Oxygen Delivery Method Room Air Room Air Room Air Lab Data Lab Results 03/21/24 15:00: WBC 6.4, RBC 4.63, Hgb 14.5, Hct 45.1, MCV 97.5, MCH 31.3 H, MCHC 32.1, RDW 12.9, Plt Count 330, MPV 8.0, Neut % (Auto) 54.1, Lymph % (Auto) 36.9, [place] % (Auto) 6.0, Eos % (Auto) 1.9, Baso % (Auto) 1.1, Neut # (Auto) 3.5, Lymph # (Auto) 2.4, [place] # (Auto) 0.4, Eos # (Auto) 0.1, Baso # (Auto) 0.1, Sodium 139, Potassium 3.3 L, Chloride 104, Carbon Dioxide 28, Anion Gap 10.3, B UN 6 L, Creatinine 0.60, Estimated GFR 113, Est GFR ( Amer) 137, Glucose 83, Calcium 9.2, Magnesium 2.0, Total Bilirubin 0.5, AST 29, ALT 23, Alkaline Phosphatase 53, Troponin I < 0.01, NT-Pro-B Natriuret Pep 21.2, Total Protein 8.2, Albumin 4.3, Globulin 3.9 H, Albumin/Globulin Ratio 1.1, Serum HCG, Qual Negative 03/21/24 15:10: VBG pH 7.35, VBG pCO2 46.7, VBG pO2 33.1, VBG HCO3 25.4, VBG Total CO2 26.9, VBG O2 Saturation 63.2, VBG Base Excess -0.1, VBG Lactic Acid 2.3 H Orders (Tests/Meds): ED MEDICATIONS Discontinued Medications Generic Name Dose Route Start Last Admin Trade Name Mumtazq PRN Reason Stop Dose Admin Acetaminophen 1,000 mg 03/21/24 15:03/21/24 15:53 Acetaminophen 1,000mg/100ml Vial IV 03/21/24 15:10 1,000 mg ONCE ONE Administration Albuterol/Ipratropium 3 ml 03/21/24 15:03/21/24 15:53 Ipratropium/Albuterol 3 Ml Neb IH 03/21/24 15:10 3 ml ONCE ONE Administration Aspirin 324 mg 03/21/24 15:23 03/21/24 15:54 Aspirin 81mg Chewable Tablet PO 03/21/24 15:24 324 mg ONCE ONE Administration Dexamethasone Sodium Phosphate 10 mg 03/21/24 15:03/21/24 15:54 Dexamethasone 4mg/Ml 5ml Mdv IV 03/21/24 15:10 10 mg ONCE ONE Administration Lactated Ringer's 1,000 mls @ 999 mls/hr 03/21/24 15:03/21/24 15:53 Lactated Ringer's 1000 Ml Bag IV 03/21/24 16:09 999 mls/hr .Q1H1M ONE Administration Iopamidol 70 ml 03/21/24 15:16 Iopamidol-370 (76%);100ml Bottle IV 03/21/24 15:17 ONCE ONE Ketorolac Tromethamine 15 mg 03/21/24 15:09 03/21/24 15:53 Ketorolac 30mg/Ml Vial IV 03/21/24 15:10 15 mg ONCE ONE Administration Sodium Chloride 50 ml 03/21/24 15:16 0.9 % Sodium Chloride 50 Ml Vial IV 03/21/24 15:17 ONCE ONE Sodium Chloride 10 ml 03/21/24 15:16 Sodium Chloride 0.9% 10ml Syr (Rad Only) IV 04/20/24 15:15 NEEDED PRN Maintain IV Site ORDERS Category Date Time Status CT angio chest PE protocol Stat Cat Scan 03/21/24 15:08 Completed POCUS Point of Care (ER Only) Stat Exams 03/21/24 16:08 Completed BNP [NT Pro Brain Natriuretic Pep.] Stat Lab 03/21/24 15:00 Completed CBC w/Auto Diff [Complete Blood Count Auto Diff] Stat Lab 03/21/24 15:00 Completed CMP [Comprehensive Metabolic Panel] Stat Lab 03/21/24 15:00 Completed HCG Qualitative, Serum Stat Lab 03/21/24 15:00 Completed Lactic Acid Stat Lab 03/21/24 15:09 Ordered Magnesium Stat Lab 03/21/24 15:00 Completed Trop I [Troponin I] Stat Lab 03/21/24 15:00 Completed VBG [Venous Blood Gas] Stat RT 03/21/24 15:10 Completed ECG Data Tracing #1: Independently interpreted by me rate is 102, rhythm is regular, axis is rightward deviated, wandering of the inferior leads however it appears there is ST depression. No ST elevation in anatomical contiguous leads. Tracing #2: Independently interpreted by me, rate is 102, rhythm is regular, ST depression and T wave inversion in the inferior leads, no ST elevation in anatomical contiguous leads, QTc 411. Critical Care <GIOVANNA Hall - Last Filed: 03/21/24 18:30> Critical Care Time Critical Care Time: No
--- NOTE | 2024-03-21 15:08 | CT_ITS ---
FINAL REPORT TECHNIQUE: Then section axial CT images of the chest were obtained with contrast. Three-D reformatted images were also obtained.This study was performed with techniques to keep radiation doses as low as reasonably achievable (ALARA). Individualized dose reduction techniques using automated exposure control or adjustment of mA and/or kV according to the patient's size were employed. CLINICAL HISTORY: Chest pain COMPARISON: None FINDINGS: There is no evidence of pulmonary embolism. There is no evidence of thoracic aortic aneurysm or dissection. There is no evidence of mediastinal or hilar mass or adenopathy. There are multiple borderline in size or mildly enlarged axillary nodes present, greater on the left side than the right, favor reactive. There is no evidence of pulmonary mass or suspicious nodule. No localized inflammatory process is seen within the lungs. Mild biapical scarring is noted. Limited images of the upper abdomen are unremarkable. IMPRESSION: No evidence of pulmonary embolism. Multiple borderline in size or mildly enlarged left greater than right axillary nodes, favor reactive. Reviewed, Interpreted and Dictated by Kayode Sanchez III, MD Transcribed by Elly Menendez Authenticated and [facility]
--- NOTE | 2024-03-21 15:08 | PC.NURSE ---
radiology aware of order for cta pe protocol and the urgency per
[2024-03-21 15:23] LABS: VBG Base Excess -0.1 mmol/L (-2.4-2.3); VBG HCO3 25.4 mmol/L (23-30); VBG Oxygen Saturation 63.2 % (50-70); VBG PCO2 46.7 mmol/L (35-51); VBG PH 7.35 mmol/L (7.31-7.41); VBG PO2 33.1 mmol/L (28-40); VBG Total CO2 26.9 mmol/L (23-27)
[2024-03-21 15:25] LABS: Lactate Venous 2.3 mmol/L (0.4-2.0)
[2024-03-21 15:28] LABS: Alanine Aminotransferase 23 U/L (12-78); Albumin Level 4.3 g/dl (3.5-5.0); Albumin/Globulin Ratio 1.1 (1.1-1.8); Alkaline Phosphatase 53 U/L (38-126); Anion Gap 10.3 mEq/L (5-15); Aspartate Amino Transferase 29 U/L (14-36); Bilirubin,Total 0.5 mg/dl (0.2-1.3); Blood Urea Nitrogen 6 mg/dl (7-17); Calcium 9.2 mg/dl (8.4-10.2); Carbon Dioxide 28 mmol/L (22.0-30.0); Chloride 104 mmol/L (98-107); Estimated Glomerular Filt Rate 113 ml/min (>60); GFR (African American) 137 ML/MIN (>60); Globulin 3.9 g/dL (1.3-3.2); Glucose 83 mg/dl (74-100); Potassium 3.3 mmoL/L (3.5-5.1); Sodium 139 mmol/L (136-145); Total Protein,Serum 8.2 g/dl (6.3-8.2)
[2024-03-21 15:30] VITALS: BP 147/106; PULSE 89; RESP 15; O2SAT 99
[2024-03-21 15:32] LABS: Basophils # 0.1 K/mm3 (0-0.2); Basophils % 1.1 % (0.1-2.0); Eosinophils # 0.1 K/mm3 (0.0-0.4); Eosinophils % 1.9 % (0.1-12.0); Hematocrit 45.1 % (37.0-47.0); Hemoglobin 14.5 g/dL (12.2-16.2); Lymphocytes # 2.4 K/mm3 (0.7-4.5); Lymphocytes % 36.9 % (10-50); Mean Corpuscular HGB Conc 32.1 g/dL (31.8-35.4); Mean Corpuscular Hemoglobin 31.3 pg (27.0-31.2); Mean Corpuscular Volume 97.5 fl (81-99); Monocytes # 0.4 K/mm3 (0.1-1.0); Neutrophils # 3.5 K/mm3 (1.8-7.8); Neutrophils % 54.1 % (37.0-80.0); Platelet Count 330 K/mm3 (142-424); Red Blood Count 4.63 M/mm3 (4.20-5.40); Red Cell Distribution Width 12.9 % (11.5-17.5); White Blood Count 6.4 K/mm3 (4.8-10.8)
[2024-03-21 15:39] LABS: HCG Qualitative, Serum Negative (Negative)
[2024-03-21 15:40] LABS: NT Pro Brain Natriuretic Pep. 21.2 pg/mL (0-125); Troponin I < 0.01 ng/ml (0.00-0.034)
[2024-03-21] MEDS: KETOROLAC 30MG/ML VIAL 15 MG IV (15:53)
[2024-03-21] MEDS: IPRATROPIUM/ALBUTEROL 3 ML NEB IH (15:53)
[2024-03-21] MEDS: ACETAMINOPHEN 1,000MG/100ML VIAL 1000 MG IV (15:53)
[2024-03-21] MEDS: LACTATED RINGERS 1000ML 1,000 ML 999 ML IV (15:53)
[2024-03-21] MEDS: ASPIRIN 81MG CHEWABLE TABLET 324 MG PO (15:54)
[2024-03-21] MEDS: DEXAMETHASONE 4MG/ML 5ML MDV 10 MG IV (15:54)
--- NOTE | 2024-03-21 16:28 | PC.NURSE ---
GIOVANNA Waller at bedside
--- NOTE | 2024-03-21 16:34 | PC.NURSE ---
Dr. Miller in room to perform portable US
[2024-03-21 17:09] VITALS: BP 111/79; PULSE 88; RESP 16; TEMP 36.5; O2SAT 99
[2024-03-21 19:25] LABS: Reflex Lactic Add Lactic Reflex
== END 2024-03-21 17:11 | disposition home or self-care (01) ==
PROVIDERS: Physician Assistant; Emergency Provider Emergency Medicine
DX: R07.89 Other chest pain (principal); R59.0 Localized enlarged lymph nodes; J04.0 Acute laryngitis; R94.31 Abnormal electrocardiogram [ECG] [EKG]; J06.9 Acute upper respiratory infection, unspecified
CPT/HCPCS: 71275; 80053; 82803; 83735; 83880; 84484; 84703; 85025; 93005; 96361; 96374; 96375; 99284; J0131; J1100; J1885; J7120; J7620

== ENCOUNTER 2024-03-22 12:05 | Outpatient (CLI) | payer BC, SELFPAY | END 2024-03-22 23:59 | disposition home or self-care (01) | LOC: RT 12:06 | PROVIDERS: Visit Provider Nurse Practitioner Family | DX: R00.2 Palpitations (principal); R94.31 Abnormal electrocardiogram [ECG] [EKG] | CPT/HCPCS: 93270 ==

== ENCOUNTER 2024-04-05 13:42 | Outpatient (CLI) | payer BC, SELFPAY ==
--- NOTE | 2024-04-05 13:51 | CA_ITS ---
APPROVED REPORT EXAM: Comprehensive 2D, Doppler, and color-flow Echocardiogram with contrast Cleaner And Trimmer: Laurence Cardenas CRT Ht: 5 ft 4 in Wt: 154lbs BSA: 1.75 BP: 137/92 mmHg Indications: Abnormal ECG, Chest Pain, Shortness of Breath, Palpitations, Fatigue Bubble study and contrast ordered. Echo Enhancing Agent Indication: Rule out Shunt Agent(s) / Amount(s) Used: Definity 2 cc Agitated Saline 5 cc Comments: Contrast and B/S ordered and given. 2D Dimensions LA Volume 20.50 mL LA Volume Index 11.50 mL/m2 (M/F) 16-34 M-Mode Dimensions RVDd 1.95 cm (0.9-2.6) LA Diam 2.61 cm (1.9-4.0) LVDd 4.55 cm (3.5-5.7) LVDs 3.13 cm (3.5-5.7) IVSd 0.86 cm (0.6-1.1) PWd 0.70 cm (0.6-1.1) EF (Teich) 59.10% FS 31.20% EDV (Teich) 94.90 mL TAPSE 1.37 (<1.7) ESV (Teich) 38.80 mL LV Diastology E Decel Time 243 (160-240 msec) E/A Ratio 1.24 MED A' 8.70 cm/s LAT A' 9.50 cm/s Aortic Valve AO Peak GR. 5.40 mmHg Mitral Valve MV E Max Pablo. 74.0 (40-130 cm/s) MV A Velocity 60.0 (40-130 cm/s) E/A Ratio 1.24 MV PHT 71.0 ms Pulmonary Valve PV Peak Velocity 80.0 (50-150 cm/s) Tricuspid Valve TR P. Velocity 194.00 cm/s RAP Estimate 10.00 mmHg RVSP 25.10 mmHg Left Ventricle The left ventricle is normal size. The left ventricular systolic function is normal. The left ventricular ejection fraction is within the normal range. There is normal left ventricular wall thickness. There is normal LV segmental wall motion. The left ventricular diastolic function is normal. No left ventricle thrombus noted on this study. LVEF is 55%. Right Ventricle The right ventricle is normal size. The right ventricular systolic function is normal. Atria The left atrium size is normal. The right atrium size is normal. There is no Doppler evidence of interatrial shunt. Agitated saline administration demonstrates no evidence of interatrial shunt. Aortic Valve The aortic valve opens well. There is no aortic valvular stenosis. No aortic regurgitation is present. Mitral Valve The mitral valve is normal in structure. No evidence of mitral valve stenosis. There is no mitral valve regurgitation noted. Tricuspid Valve The tricuspid valve leaflets are thin and pliable. Trace tricuspid regurgitation. There is insufficient TR jet to estimate RVSP. Trace pulmonic regurgitation. Pulmonic Valve The pulmonary valve is normal in structure. Great Vessels The aortic root is normal in size. The ascending aorta is not well-visualized. IVC is normal in size and collapses >50% with inspiration. Pericardium There is no pericardial effusion. Other Information Study Quality: Adequate Conclusion Normal biventricular systolic function. No significant valvular stenosis or regurgitation. No Doppler evidence of interatrial shunt. Agitated saline administration demonstrates no evidence of interatrial shunt. Electronically signed by : Rosa Trejo MD 04/06/2024 01:24:12
--- NOTE | 2024-04-05 15:35 | CA_ITS ---
APPROVED REPORT Exam: Exercise Treadmill Technologist: Elisa Castillo Ht: 5 ft 4 in Wt: 154 lbs BSA: 1.75 m2 HR: 70 bpm BP: 130/79 mmHg Indications: Abnormal ekg, Chest pain, Dyspnea Medical History Medications: Albuterol,,,,, Prednisone,,,,, ONdansetron,,,,, Levonorgestrel,,,,, BROmfed DM,,,,, Stress Test Details Test: Raymon HR Resting HR: 83 bpm Max Heart Rate (APMHR): 184 bpm Max HR Achieved: 152 bpm Target HR (85% APMHR): 156 bpm % of APMHR: 83 Recovery HR: 95 bpm HR response to stress: Blunted HR response to stress BP Resting BP: 130.0/79.0 mmHg Max BP: 158.0/84.0 mmHg Recovery BP: 126.0/78.0 mmHg BP response to stress: Normal blood pressure response to stress. ECG Resting ECG: NSR Stress EC.[address] depression Arrhythmia: None Recovery ECG: Return to baseline within 3 minutes of recovery Recovery Arrhythmia: None Clinical Exercise duration: 08:48 min Highest Stage Achieved: Exercise capacity: 10.1 METs Overall Exercise Capacity for Age: Average Stress ECG Conclusion Stopped test at 8:48, 152 beats per minute, due to feeling lightheaded/chest pressure. The patient did not reach target heart rate of 156. Symptoms: Shortness of air, chest tightness, dizziness. Arrhythmias/Ectopy: None ST-T Changes: 0.[address] depression Conclusion: Suboptimal and nondiagnostic ECG treadmill stress test in the setting of inability to achieve target HR. At the degree of HR achieved, no ischemic ECG changes are noted. Due to nondiagnostic stress test, further evaluation with alternative modality (either CCTA or pharmacologic nuclear stress test) is suggested, if clinically indicated. Test Summary REST . . . . . . . Sitting REST 06:16 0.0 0.0 83 . 130/ 79 . . Stage 1 01:00 10.0 1.7 100 . . . . Stage 1 02:00 10.0 1.7 96 . . . . Stage 1 03:00 10.0 1.7 107 . 142/ 78 . . Stage 2 01:00 12.0 2.5 115 . . . . Stage 2 02:00 12.0 2.5 114 . . . . Stage 2 03:00 12.0 2.5 114 . 148/ 78 . . Stage 3 01:00 14.0 3.4 136 . . . . Stage 3 . . . . . . . chest tightness Stage 3 02:00 14.0 3.4 149 . . . . Stage 3 02:48 14.0 3.4 152 . 158/ 84 . Stop exercise at 08:48 RECOVERY 01:00 0.0 0.0 118 . . . . RECOVERY 02:00 0.0 0.0 113 . 133/ 79 . . RECOVERY 03:00 0.0 0.0 95 . 126/ 78 . . RECOVERY 04:00 0.0 0.0 93 . 126/ 78 . . RECOVERY 05:00 0.0 0.0 0 . 126/ 78 . . RECOVERY 06:00 0.0 0.0 0 . 126/ 78 . . RECOVERY 07:00 0.0 0.0 0 . 126/ 78 . . RECOVERY 08:00 0.0 0.0 0 . 126/ 78 . . RECOVERY 09:00 0.0 0.0 0 . 126/ 78 . . RECOVERY 10:00 0.0 0.0 0 . 126/ 78 . . RECOVERY 11:00 0.0 0.0 0 . 126/ 78 . . RECOVERY 11:32 0.0 0.0 0 . 126/ 78 . . Electronically signed by : Rosa Trejo MD 04/21/2024 02:00:29
== END 2024-04-05 23:59 | disposition home or self-care (01) ==
LOC: RT 13:42
PROVIDERS: Visit Provider Nurse Practitioner Family
DX: R94.31 Abnormal electrocardiogram [ECG] [EKG] (principal); I20.89 Other forms of angina pectoris; R06.09 Other forms of dyspnea; R00.2 Palpitations
CPT/HCPCS: 93017; 93018; 93306

== ENCOUNTER 2024-05-02 12:13 | Outpatient (CLI) | payer BC, SELFPAY ==
--- NOTE | 2024-05-02 12:13 | CT_ITS ---
APPROVED REPORT Public Health Internship: CLINICAL INDICATION Chest Pain TECHNIQUE Image Acquisition: A 128 slice MDCT scanner (Sentrixa View) was used for data acquisition. A noncontrast coronary calcium scan was performed. A CT attenuation threshold of 130 Hounsfield units (HU) was used for the detection of calcium in contiguous voxels of 1 sq mm in area to be counted as individual lesions. Bolus tracking in the ascending aorta with a threshold of 180 HU was performed. Immediately afterwards, ECG synchronized cardiac CT was then performed from the cardiac base to apex using retrospective gating with ECG tube current modulation. A total of 85 mL of Isovue 370 mg/mL contrast medium was administered at 5 mL/sec followed by a saline flush using a biphasic injection protocol. A tube voltage of 120 KVp was used. The patient received the following medications prior to the cardiac CT. 75 mg of oral metoprolol 15 mg of oral ivabradine 0.8 mg of sublingual nitroglycerin The average heart rate at the time of acquisition was 58 bpm and regular. Image Reconstruction Transaxial images were reconstructed at 0.67 mm slide thickness. Data was reviewed interactively on an advanced workstation capable of 2 and 3-dimensional displays in all conventional reconstruction formats, including multiplanar reformations, maximum intensity projections, curved multiplanar reformations, and volume rendered reconstructions. When applicable, selected routine images describing the relevant coronary anatomy and pathology were saved and sent to PACS. Complications None Technical Quality Overall image quality was good. Coronary artery opacification was adequate. Total DLP (Dose-Length Product) is 1146 mGy-cm. The reported value represents the total of one or more individual components during the CT acquisition of this date and at this time, and as such, the same value may appear in more than one CT report depending on the interpreting/reporting physicians. COMPARISON None FINDINGS CT Coronary Calcium Scoring LMA (Left Main Artery) = 0 LAD (Left Anterior Descending) = 0 LCX (Left Coronary Circumflex) = 0 RCA (Right Coronary Artery) = 0 Total Calcium Score = 0 using the AJ-130 method. The interpretation of the calcium heart score is based on the following continuum*: 0 = no calcified plaque detected (risk of coronary artery disease is very low ??? less than 5%) 1-10 = calcium detected in extremely minimal levels (risk of coronary diseases is still low ??? less than 10%) 11-100 = mild levels of plaque detected with certainty (mild or minimal narrowing of heart arteries is likely) 101-400 = definite,at least moderate levels of plaque detected (relatively high risk of a heart attack within 3-5 years) >401-999 = extensive levels of plaque detected (high risk of heart attack, high levels of vascular disease are present, high likelihood of at least one significant coronary narrowing) *The calcium heart score quantifies the burden of coronary calcification/plaque in the coronary arteries. The calcium heart score is not able to evaluate the presence or burden of non-calcified (i.e. soft) plaque. There is no identifiable calcification in the aortic valve, mitral annulus or mitral valve, pericardium, or myocardium. Coronary CT Angiography The coronary arterial system is right dominant. Quantitative Stenosis Grading: Left Main (LM): The left main originates normally from the left sinus of Valsalva. The LM bifurcates into the left anterior descending artery and left circumflex artery. The LM is patent with no evidence of atherosclerosis. Left Anterior Descending (LAD) and Diagonal Branches: The LAD gives off 3 diagonal branch(es). The LAD and its branches are patent with no evidence of atherosclerosis. 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 Left Circumflex (LCX) and Obtuse Marginals (OM): The LCX gives off 1 Obtuse Marginal (OM) branch(es). The LCX and its branches are patent with no evidence of atherosclerosis. Right Coronary Artery (RCA): The RCA originates normally from the right sinus of Valsalva. The RCA gives off a posterior descending artery (PDA) and posterolateral (PL) branches. The RCA and its branches are patent with no evidence of atherosclerosis. Non-Coronary Cardiac Findings: Analysis of the left ventricular (LV) structure and function was performed after 3-D reconstruction of the LV from axial images, with user-corrected automatic contouring for assessment of LV volumes and user-defined reconstruction from oblique planes for measurement of 3-D cardiac structure and function. -The left ventricle systolic function is normal. -There is no left atrial appendage filling defect. Two right pulmonary veins and two left pulmonary veins drain normally into the left atrium. -No pericardial thickening or calcification. -Central and branch pulmonary arteries in the [id number] are unremarkable. -Thoracic aorta within the visualized thoracic aortic-branches in the [id number] is unremarkable. Extracardiac Structures No significant extra-cardiac findings. Note, however, that this study is focused on the cardiac findings. IMPRESSION -No coronary calcification with an Agatston score = 0 using the AJ-130 method. -No evidence of significant flow-limiting atherosclerosis of the coronary arteries. -CAD-RADS 0. Management recommendations per ACC/AHA guidelines*, as clinically appropriate. 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 *Recommendations: CAD RADS 0: Reassurance. Consider non-atherosclerotic causes of chest pain. CAD RADS 1: Consider non-atherosclerotic causes of chest pain. Consider preventive therapy and risk factor modification. CAD RADS 2: Consider non-atherosclerotic causes of chest pain. Consider preventive therapy and risk factor modification, particularly for patients with nonobstructive plaque in multiple segments. CAD RADS 3: Consider further functional testing. Consider symptom-guided anti-ischemic and preventive pharmacotherapy as well as risk factor modification per published guideline statements. CAD RADS 4A: Consider further functional testing or invasive coronary angiography with revascularization per published guideline statements. Consider symptom-guided anti-ischemic and preventive pharmacotherapy as well as risk factor modification per published guideline statements. CAD RADS 4B: Invasive coronary angiography recommended with revascularization per published guideline statements. Consider symptom-guided anti-ischemic and preventive pharmacotherapy as well as risk factor modification per published guideline statements. CAD RADS 5: Consider invasive angiography and/or viability assessment with revascularization per published guideline statements. Consider symptom-guided anti-ischemic and preventive pharmacotherapy as well as risk factor modification per published guideline statements. CRITICAL RESULT None COMMUNICATION Per this written report The coronary and cardiac findings of this CCTA were reviewed, reported, and signed by Carmelo Trejo MD ([employer]) Conclusion Electronically signed by : Rosa Trejo MD 05/04/2024 13:11:37
[2024-05-02 12:30] VITALS: BMI 26.1
[2024-05-02] MEDS: IVABRADINE HCL 7.5MG TABLET *IVABRADINE+METOPROLOL REGIMINE 15 MG PO (12:40)
[2024-05-02] MEDS: METOPROLOL TARTRATE 50MG TABLET *IVABRADINE+METOPROLOL REGIMINE 75 MG PO (12:41)
[2024-05-02 12:49] VITALS: BP 114/69; PULSE 77; RESP 17; TEMP 36.6; O2SAT 100
[2024-05-02 13:13] LABS: Chloride 105 mmol/L (98-107); Potassium 3.7 mmoL/L (3.5-5.1); Sodium 138 mmol/L (136-145)
[2024-05-02 13:15] LABS: Blood Urea Nitrogen 8 mg/dl (7-17); Creatinine Clearance Estimated 146 mL/min (50-200); Estimated Glomerular Filt Rate 113 ml/min (>60); GFR (African American) 137 ML/MIN (>60)
[2024-05-02 13:16] LABS: Anion Gap 10.7 mEq/L (5-15); Calcium 9.1 mg/dl (8.4-10.2); Carbon Dioxide 26 mmol/L (22.0-30.0); Glucose 80 mg/dl (74-100)
[2024-05-02 13:30] VITALS: BP 97/68; PULSE 58; RESP 16; O2SAT 100
[2024-05-02 13:43] VITALS: BP 116/75; PULSE 63; RESP 16; O2SAT 100
[2024-05-02 13:45] VITALS: BP 102/63; PULSE 62; O2SAT 100
[2024-05-02 13:50] VITALS: BP 115/52; PULSE 66; RESP 17; O2SAT 98
[2024-05-02] MEDS: IOPAMIDOL-370 (76%);100ML BOTTLE 85 ML IV (13:53)
[2024-05-02] MEDS: SODIUM CHLORIDE 0.9% 10ML SYR (RAD ONLY) 10 ML IV (13:53)
[2024-05-02] MEDS: 0.9 % SODIUM CHLORIDE 50 ML VIAL IV (13:53)
[2024-05-02 13:55] VITALS: BP 102/63; PULSE 64; RESP 17; TEMP 36.6; O2SAT 100
== END 2024-05-02 14:05 | disposition home or self-care (01) ==
PROVIDERS: PCP Nurse Practitioner Family; Visit Provider Nurse Practitioner Family
DX: I20.89 Other forms of angina pectoris (principal); R00.2 Palpitations; R06.09 Other forms of dyspnea
CPT/HCPCS: 75574; 80048; Q9967

== ENCOUNTER 2025-02-09 13:45 | Outpatient (CLI) | payer BC, SELFPAY ==
--- OUTSIDE RECORDS SUMMARY | 2025-02-09 13:48 | XMS_ITS | Patient Health Record ---
Author Organization [facility] Address [address] [facility] [address] [place] [address] Care Team Providers Care Door Fitter Name Role Phone Sheyla Mercado Unavailable [phone] Allergies Allergen (clinical drug ingredient) Drug/Non Drug Allergy documented on EMR Reaction Allergy Type Onset Date Status PENICILLIN V POTASSIUM (PENICILLIN V POTASSIUM TAB Unspecified Drug Allergy 05/16/2010 Active Reason For Referral No Information Social History Social History Sexual History: Social Info Question Answer Notes Sexual History Had sex in the past 12 months (vaginal, oral, or anal)? Yes Drugs/Alcohol: Social Info Question Answer Notes Drugs Have you used drugs other than those for medical reasons in the past 12 months? No Alcohol Screen Did you have a drink containing alcohol in the past year? Yes Points 0 Interpretation Negative Tobacco Use: Social Info Question Answer Notes Tobacco Use/Smoking Are you a former smoker Tobacco use other than smoking: Are you an other tobac co user? No Problems Problem Type SNOMED Code ICD Code Onset Dates Problem Status W/U Status Risk Notes Problem state, 2 weeks (67637089) 2 weeks follow-up (Z39.2) 011 Active confirmed EXAMINATION Problem Insertion of intrauterine contraceptive device (87793626) Encounter for initial insertion of intrauterine contraceptive device (Z30.430) 011 Active confirmed IUD INSERTION Problem Threatened (51137268) , spontaneous threatened (O20.0) 010 Active confirmed THREATENED Plan Of Treatment No Information Medical (General) History Medical History History ICD Code SOCIAL HX: non-smoker, denies use of sebastián gs and alcohol SOCIAL HX: non-smoker, denies use of sebastián gs and alcohol none noted GNP VITAMINS TABLET EXPECTA LIPIL 200 MG ORAL CAPSULE FLOVENT HFA 44 MCG/ACT INHALATION AEROSO L ZOLOFT 50 MG ORAL TABLET ALBUTEROL SULFATE AERS) MOTRIN IB TABS 600MG (IBUPROFEN TABS) Surgical History Surgery Date(Month/Year) none noted
--- OUTSIDE RECORDS SUMMARY | 2025-02-09 13:48 | XMS_ITS | Clinical Summary ---
[facility] Address [address] [place] [id number] Care Team Providers Care Web Services Developer Name Role Phone Derian Singh MD Primary Care Provider [phone] Allergies Active Allergy Reactions Criticality Noted Date Comments Penicillins Hives,Swelling,Rash Low 04/19/2016 Medications azithromycin (ZITHROMAX Z-LUMA) 250 MG tabletIndicatio ns:Acute URI Take 2 tablets the first day, then 1 tablet daily for 4 days. 6 tablet 12/02/2018 Active methylPREDNISol one (MEDROL, LUMA,) 4 MG tabletIndicatio ns:Acute URI Take as directed on package instructions. 21 tablet 12/02/2018 Active promethazine-de xtromethorphan (PROMETHAZINE-D M) 6.25-15 MG/5ML syrupIndication s:Acute URI Take 5 mL by mouth 4 (Four) Times a Day As Needed for Cough. 100 mL 12/02/2018 Active benzonatate (TESSALON) 200 MG capsuleIndicati ons:Acute URI Take 1 capsule by mouth 3 (Three) Times a Day As Needed for Cough. 21 capsule 12/02/2018 Active Active Problems No known active problems Family History Medical History Relation Name Comments Breast cancer Maternal Grandmother Relation Name Status Comments Maternal Grandmother Social History Tobacco Use Types Packs/Day Years Used Date Smoking Tobacco: Never Abuse Screen Answer Date Recorded Unsafe at Home or Work/School Not on file Feels Threatened by Someone? Not on file 03/2023 Does Anyone Keep You from Co ntacting Others or Doint Things Outside the Home? Not on file 04/20/2023 Physical Sign of Abuse Present Not on file 1 Housing Stability Answer Date Recorded Current Living Arrangements Not on file 10/0 03/2023 Potentially Unsafe Housing Conditions Not on tyler e 04/20/2023 Family and Community Support Answer Terrance e Recorded Help with Day-to-Day Activities Not on file 04/20/2023 Lonely or Isolated Not on file 04/20/2023 Employment Answer Date Recorded Do you want help finding or keeping work or a stephy b? Not on file 04/20/2023 Disabilities Answer Date Recorded Concentrating, Remembering, or Making Decisions Difficulty Not on file 04/20/2023 Doing Errands Independently Difficulty Not on fi le 04/20/2023 Education Answer Date Recorded Help with school or training? Not on file Preferred Language Not on file 04/20/2023 Comments No Sex and Gender Information Value Date Recorded Sex Assigned at Not on file Legal Sex Female 12:38 PM EDT Gender Identity Not on file Sexual Orientation Not on file Last Filed Vital Signs Vital Sign Reading Time Taken Comments Blood Pressure 112/70 12/02/2018 9:21 AM EDT Pulse 90 12/02/2018 9:21 AM EDT Temperature 36.7 C (98.1 F) 12/02/2018 9:21 AM EDT Respiratory Rate 15 12/02/2018 9:21 AM EDT Oxygen Saturation 98% 12/02/2018 9:21 AM EDT Inhaled Oxygen Concentration - - Weight 61.9 kg (136 lb 6.4 oz) 12/02/2018 9:21 A M EDT Height 162.6 cm (5' 4 ) 12/02/2018 9:21 AM EDT Body Mass Index 23.41 12/02/2018 9:21 AM EDT Plan of Treatment Health Maintenance Due Date Last Done Comments Annual Gynecologic Pelvic an d Breast Exam 1988 TDAP/TD VACCINES (1 - Tdap) 2007 ANNUAL PHYSICAL 04/19/2016 HEPATITIS C SCREENING 04/19/2016 COVID-19 Vaccine (2023-2 5 season) 2024 INFLUENZA VACCINE 04/12/2025 Pneumococcal Vaccine 0-49 Aged Out No longer eligible based on patient's age to complete this topic Insurance [employer] [facility] Care Teams Web Services Developer Relationship Specialty Start Date End Date Derian Singh MD [address] [place] [address] [place] [address] PCP - General Internal Medicine 07/29/22
[2025-02-09 15:44] LABS: Free T4 (Free Thyroxine) 1.14 ng/dl (0.78-2.19)
[2025-02-09 15:57] LABS: Thyroid Stimulating Hormone 2.41 uIU/mL (0.465-4.68)
== END 2025-02-09 23:59 | disposition home or self-care (01) ==
LOC: LAB 13:46
PROVIDERS: Visit Provider Nurse Practitioner Family
DX: I20.89 Other forms of angina pectoris (principal)
CPT/HCPCS: 36415; 84439; 84443

== ENCOUNTER 2025-02-21 21:06 | Emergency (ER) | payer BC, SELFPAY ==
[2025-02-21 21:23] VITALS: BP 150/99; PULSE 92; RESP 16; TEMP 36.8; O2SAT 98; BMI 28.8
[2025-02-21 21:28] VITALS: PULSE 79; O2SAT 98
[2025-02-21 21:30] VITALS: BP 118/75; PULSE 79; O2SAT 98
--- OUTSIDE RECORDS SUMMARY | 2025-02-21 21:35 | XMS_ITS | Clinical Summary ---
[facility] Address [address] [place] [id number] Care Team Providers Care Endless Track Vehicle Supervisor Name Role Phone Derian Singh MD Primary Care Provider [phone] Allergies Active Allergy Reactions Criticality Noted Date [...] age to complete this topic Insurance [facility] [facility] Care Teams Endless Track Vehicle Supervisor Relationship Specialty Start Date End Date Derian Singh MD [address] [place] [address] [place] [address] PCP - General Internal Medicine 07/29/22
--- OUTSIDE RECORDS SUMMARY | 2025-02-21 21:35 | XMS_ITS | Patient Health Record ---
Author Organization [facility] Address [address] [facility] [address] [place] [address] Care Team Providers Care Computer Systems Consultant Name Role Phone Sheyla Mercado Unavailable [phone] Allergies Allergen (clinical drug ingredient) Drug/Non Drug [...] Status Risk Notes Problem state, 2 weeks ([id number]) 2 weeks follow-up (Z39.2) 011 Active confirmed EXAMINATION Problem Insertion of intrauterine contraceptive device (23053813) Encounter for initial insertion of intrauterine contraceptive device (Z30.430) 011 Active confirmed IUD INSERTION Problem Threatened (19587994) , spontaneous threatened (O20.0) 010 Active confirmed [...]
[2025-02-21 21:45] VITALS: PULSE 85; O2SAT 98
--- NOTE | 2025-02-21 21:47 | HMH.EDGENADL ---
Discharge Plan Disposition Patient Disposition: Home, Self-Care Referrals Follow up/Referrals: Provider,Referral, [Primary Care Provider, Medical] - See instructions Activity Restrictions/Add. Instructions Additional Instructions/Restrictions: You can take Benadryl or loratadine for the itchiness and redness. Follow-up with your primary care physician if symptoms/redness does not improve over the next few days or worsens. If you develop any new or worsening symptoms, or if you become concerned for your health for any reason, return to the emergency department for evaluation Clinical Impressions Clinical Impression: Bug bite Instructions Patient Instructions: DI for Skin Abscess Print Language Print Language: Czech Discharge ED Provider: Dominic Valdez General Adult HPI General Chief complaint: Skin/Abscess/Foreign Body Stated complaint: bite on R arm above elbow brown recluse? Time Seen by Provider: 02/21/25 21:46 Mode of Arrival: Family Vehicle Source of Information: Patient Description of Symptoms (Recalled from ER Triage Doc. by RN): Spider Bite Pt presents to the ED with c/o of a brown recluse bite to her R upper arm. Pt states that she felt a sting yesterday in he sleeve and now has reddened and warm area to R upper arm. Pt has 2 outlines that are getting bigger marked on her skin. History of Present Illness HPI narrative: Patient is a 34-year-old female with no significant past medical history who presents to the emergency department for a possible spider bite to her right arm. Patient states that yesterday, she was putting on a sweatshirt and felt like something bit her on the right arm. She believes it may have been a spider and is concerned it was possibly brown recluse spider. She states that yesterday, the area became hot and red but today, it has continued to remain hot and red and the area of redness has expanded beyond its original borders, which they outlined in a marker. She is concerned it may have been a brown recluse spider that bit her. She denies any fevers. Related Data Allergies Allergy/AdvReac Type Severity Reaction Status Date / Time Penicillins Allergy Rash Verified 02/20/25 15:36 [facility] Disclaimer: The information contained in this section may have been updated after the patient was seen, as this information can be updated by other users. Medical History Right axis deviation Palpitations Dyspnea Atypical angina Abnormal ECG No significant past medical history Left breast mass Epidermal inclusion cyst Surgical History History of partial hysterectomy History of breast lump/mass excision History of appendectomy History of bilateral salpingectomy History of right oophorectomy Family History Grandmother Cancer Maternal-breast Social History Smoking Status: Unknown if ever smoked second hand exposure: No alcohol intake: never substance use type: denies use current occupational status: employed Travel in the last 8 weeks?: None household members: spouse and children housing: house current occupational exposures/hazards: No caffeine: Yes Have you lived/traveled outside US in past 30 days?: No Contact w/someone who lives/traveled outside US past 30 days?: No Exposure to someone with infectious disease in past 14 days?: No Do you have a fever (greater than 100.4 F or 38 C)?: No Have you tested positive for COVID-19?: No Exposed to someone with COVID-19 in past 14 days?: No Do you have a sore throat?: No Do you have a cough?: No Do you have any weakness?: No Do you have any diarrhea?: No Are you experiencing any unusual bleeding?: No Do you have any muscle aches/pain?: No Do you have any abdominal pain?: No Are you experiencing loss of taste or smell?: No Other Medical History Have you received the Flu Vaccine for this season: No Have you received the Pneumonia Vaccine: No ROS Obtained: Yes Systems reviewed as appropriate & no additional complaints except as documented Physical Exam General General appearance: alert and in no apparent distress Head Head exam: atraumatic Eye Eye exam: Present normal appearance ENT ENT exam: Present normal external ear exam Neck Neck exam: Present full ROM Chest Chest inspection: Present symmetric chest wall rise Respiratory Respiratory exam: Present normal lung sounds bilaterally; Absent respiratory distress Cardiovascular Cardiovascular exam: Present regular rate and normal rhythm Abdominal Exam Abdominal exam: Present soft; Absent tenderness or guarding Extremities Exam Extremities exam: Present normal inspection Back Exam Back exam: Present normal inspection Neurological Exam Neurological exam: Present alert and oriented X3 Psychiatric Psychiatric exam: Present normal affect Skin Skin exam: Present warm, dry and rash (Area of erythema to the right tricep area. There is some tenderness in this area. No bogginess or induration. There are 2 small superficial puncture wounds to the area that could represent bite delgado. No streaking. 2+ radial pulse. Neuro vastly intact distally) Medical Decision Making Medical Records Screening: Per USPSTF and CDC recommendations, given the prevalence of disease in our region, it is our hospital?s policy to screen for HIV and viral Hepatitis for all patients aged 18 and over and those with ongoing risk factors. Jd Inquiry Pt receiving controlled substance: No Vital Signs: 02/21/25 21:23 02/21/25 21:28 02/21/25 21:30 Temperature 98.3 F Temperature Source Oral Pulse Rate 79 Pulse Rate [Left] 92 H Respiratory Rate 16 Blood Pressure 118/75 Blood Pressure [Left Arm] 150/99 H Blood Pressure Mean 89 Blood Pressure Mean [Left Arm] 116 Blood Pressure Source Blood Pressure Source [Left Arm] Automatic Cuff Blood Pressure Position Blood Pressure Position [Left Arm] Sitting 02 Sat by Pulse Oximetry 98 98 Oxygen Delivery Method Room Air 02/21/25 21:30 02/21/25 21:45 02/21/25 22:00 Temperature Temperature Source Pulse Rate 79 85 76 Pulse Rate [Left] Respiratory Rate Blood Pressure Blood Pressure [Left Arm] Blood Pressure Mean Blood Pressure Mean [Left Arm] Blood Pressure Source Blood Pressure Source [Left Arm] Blood Pressure Position Blood Pressure Position [Left Arm] 02 Sat by Pulse Oximetry 98 98 97 Oxygen Delivery Method 02/21/25 22:00 02/21/25 22:11 Temperature 98.3 F Temperature Source Oral Pulse Rate 79 Pulse Rate [Left] Respiratory Rate 18 Blood Pressure 105/74 L 105/74 L Blood Pressure [Left Arm] Blood Pressure Mean 84 Blood Pressure Mean [Left Arm] Blood Pressure Source Automatic Cuff Blood Pressure Source [Left Arm] Blood Pressure Position Sitting Blood Pressure Position [Left Arm] 02 Sat by Pulse Oximetry Oxygen Delivery Method Room Air Orders (Tests/Meds): ED MEDICATIONS Discontinued Medications Generic Name Dose Route Start Last Admin Trade Name Freq PRN Reason Stop Dose Admin Diphenhydramine HCl 25 mg 02/21/25 22:01 02/21/25 22:14 Diphenhydramine 25mg Capsule PO 08/12/25 22:02 25 mg ONCE ONE Administration Medical Decision Narrative: Patient is a 34-year-old female with no significant past medical history who presents to the emergency department for a possible spider bite to her right arm. Patient states that yesterday, she was putting on a sweatshirt and felt like something bit her on the right arm. She believes it may have been a spider and is concerned it was possibly brown recluse spider. She states that yesterday, the area became hot and red but today, it has continued to remain hot and red and the area of redness has expanded beyond its original borders, which they outlined in a marker. She is concerned it may have been a brown recluse spider that bit her. She denies any fevers. On arrival, patient is hemodynamically stable, no acute respiratory distress, breathing comfortably on room air with appropriate oxygen saturation. Physical exam, as stated above, reveals an overall well-appearing female in no distress. She has not had any vomiting or abdominal pain throughout this process. She has an area of redness on her right tricep area that is mildly tender to touch and mildly warm. There are 2 small indentations in this area that could represent a bug bite. There is no concern for any abscess and this does not appear cellulitic and more of a localized histamine reaction as patient is complaining of itchiness in the area. Lab work was considered, however is felt to not be indicated at this time as it would not change ED management. Is felt that patient benefit from antihistamines to help with the symptomatology and was given a dose of Benadryl here in the emergency department. There is low concern for any liquefactive necrosis that could potentially come with a brown recluse bite. Patient advised to continue taking antihistamines at home and to follow with her primary care physician if over the next few days the rash does not resolve. Strict return precautions were given for any possible evidence of a worsening infection/anaphylaxis. Return precautions were given. All questions were answered. She was then discharged from the emergency department in stable condition. Critical Care Critical Care Time Critical Care Time: No
[2025-02-21 22:00] VITALS: BP 105/74; PULSE 76; O2SAT 97
[2025-02-21 22:11] VITALS: BP 105/74; PULSE 79; RESP 18; TEMP 36.8; O2SAT 99
== END 2025-02-21 22:17 | disposition home or self-care (01) ==
PROVIDERS: Emergency Provider Student in an Organized Health Care Education/Training Program
DX: S40.861A Insect bite (nonvenomous) of right upper arm, initial encounter (principal); W57.XXXA Bitten or stung by nonvenomous insect and other nonvenomous arthropods, initial encounter
CPT/HCPCS: 99283

== ENCOUNTER 2025-02-22 16:09 | Outpatient (CLI) | payer BC, SELFPAY ==
--- NOTE | 2025-02-22 16:00 | US_ITS ---
PROCEDURE: US TRANSVAGINAL CLINICAL INDICATION: AUB COMPARISON: US US TRANSVAGINAL from 01/23/[address] ABDOMEN PELVIS W CON from 01/23/2023 US US TRANSVAGINAL from 03/27/2023 FINDINGS: Transvaginal sonographic images of the pelvis were obtained. UTERUS: 9.9 cm x 5.7 cmx 5.0cm anteverted with a combined endometrial thickness of 5.2mm. There is an IUD within the uterine cavity in the correct position. There is a small amount of fluid within the cervical canal. There are 2 small nabothian cysts in the cervix. LEFT OVARY: 2.7 cmx2.8 cmx2.6cm with a volume of 10.5ml. There are several small peripheral follicles. RIGHT OVARY: Surgically absent. Both ovaries are seen and appear normal. Doppler flow to both ovaries are seen. There is no fluid in the cul-de-sac. IMPRESSION: 1. Anteverted uterus normal in shape and size. The endometrium is thin measuring 5.2 mm. 2. There is an IUD within the uterine cavity in the correct position. 3. The right ovary is surgically absent. The left ovary appears normal with several small peripheral follicles. 4. No fluid in the cul-de-sac. Dictated by: Rajiv Brewer MD 02/22/2025 21:21 Rajiv Brewer MD in [place] 02/22/2025 21:21
--- OUTSIDE RECORDS SUMMARY | 2025-02-22 16:10 | XMS_ITS | Patient Health Record ---
Author Organization [facility] Address [address] [facility] [address] [place] [address] Care Team Providers Care Media Services Coordinator Name Role Phone Sheyla Mercado Unavailable [phone] Allergies Allergen (clinical drug ingredient) Drug/Non Drug [...] Status Risk Notes Problem state, 2 weeks (55610856) 2 weeks follow-up (Z39.2) 011 Active confirmed EXAMINATION Problem Insertion of intrauterine contraceptive device (84910321) Encounter for initial insertion of intrauterine contraceptive device (Z30.430) 011 Active confirmed IUD INSERTION Problem Threatened (37760121) , spontaneous threatened (O20.0) 010 Active confirmed [...]
--- OUTSIDE RECORDS SUMMARY | 2025-02-22 16:11 | XMS_ITS | Clinical Summary ---
[facility] Organization [facility] Address [address] [place] [id number] Care Team Providers Care Winder Tender Name Role Phone Derian Singh MD Primary Care Provider [phone] Allergies Active Allergy Reactions Criticality Noted Date [...] age to complete this topic Insurance [employer] [facility] Care Teams Winder Tender Relationship Specialty Start Date End Date Derian Singh MD [address] [place] [address] [place] [address] PCP - General Internal Medicine 07/29/22
== END 2025-02-22 23:59 | disposition home or self-care (01) ==
LOC: RAD 16:09
PROVIDERS: Visit Provider Nurse Practitioner Obstetrics & Gynecology
DX: N85.4 Malposition of uterus (principal); N83.02 Follicular cyst of left ovary; N93.9 Abnormal uterine and vaginal bleeding, unspecified; Z90.721 Acquired absence of ovaries, unilateral; Z97.5 Presence of (intrauterine) contraceptive device
CPT/HCPCS: 76830

== ENCOUNTER 2025-02-26 10:28 | Outpatient (CLI) | payer BC, SELFPAY ==
[2025-02-26 21:03] LABS: Coronavirus 19, PCR Not Detected (NotDetected); Influenza A, PCR Not Detected (NotDetected); Influenza B, PCR Not Detected (NotDetected)
--- OUTSIDE RECORDS SUMMARY | 2025-02-28 10:31 | XMS_ITS | Patient Health Record ---
Author Organization [facility] Address [address] [facility] [address] [place] [address] Care Team Providers Care Geography Department Chair Name Role Phone Sheyla Mercado Unavailable [phone] Allergies Allergen (clinical drug ingredient) Drug/Non Drug [...] Status Risk Notes Problem state, 2 weeks (67913995) 2 weeks follow-up (Z39.2) 011 Active confirmed EXAMINATION Problem Insertion of intrauterine contraceptive device (40766378) Encounter for initial insertion of intrauterine contraceptive device (Z30.430) 011 Active confirmed IUD INSERTION Problem Threatened (16381226) , spontaneous threatened (O20.0) 010 Active confirmed [...]
--- OUTSIDE RECORDS SUMMARY | 2025-02-28 10:31 | XMS_ITS | Clinical Summary ---
[facility] Organization [facility] Address [address] [place] [id number] Care Team Providers Care Felt Hat Mellowing Machine Operator Name Role Phone Derian Singh MD Primary Care Provider [phone] Allergies Active Allergy Reactions Criticality Noted Date Comments Penicillins Hives,Swelling,Rash Low 04/19/2016 Medications azithromycin (ZITHROMAX Z-LUMA) 250 MG tabletIndicatio ns:Acute URI Take 2 tablets the first day, then 1 tablet daily for 4 days. 6 tablet 12/02/2018 Active methylPREDNISol one (MEDROL, LUAM,) 4 MG tabletIndicatio ns:Acute URI Take as [...] age to complete this topic Insurance [employer]ET[employer] [facility] Care Teams Felt Hat Mellowing Machine Operator Relationship Specialty Start Date End Date Derian Singh MD [address] [place] [address] [place] [address] PCP - General Internal Medicine 07/29/22
== END 2025-02-26 23:59 | disposition home or self-care (01) ==
LOC: LAB.DROPOF 02-28 10:29
PROVIDERS: Visit Provider Nurse Practitioner Family
DX: J06.9 Acute upper respiratory infection, unspecified (principal); J02.9 Acute pharyngitis, unspecified
CPT/HCPCS: 87631